=== PATIENT | male | born 1935 | race Caucasian/White ===

== ENCOUNTER 2016-11-10 17:57 | Inpatient (IN) ==
--- NOTE | 2016-11-10 18:17 | Emergency Department Note ---
Disposition Clinical Impression: RONNIE (acute kidney injury), Elevated troponin Cerebrovascular accident Qualifiers: CVA mechanism: unspecified Qualified Code(s): I63.9 - Cerebral infarction, unspecified Disposition: Admitted As Inpatient Condition: Serious Referrals: NO,PCP [Primary Care Provider] - Forms: ED Satisfaction Letter Time of Disposition: 19:54 Neuro HPI - General Chief Complaint: ED Neuro Symptoms/Deficit Stated Complaint: R sided weakness Time Seen by Provider: 11/10/16 18:07 Source: patient, EMS Limitations: no limitations Nursing Notes Reviewed: Yes Vital Signs Reviewed: Yes - History of Present Illness HPI Narrative: 81-year-old male presents to the emergency department with approximate 36 hour history of right-sided weakness. Patient's currently in the intermediate for unknown reasons (per patient). Patient states he began having right-sided weakness 2 days ago and was trying to notify her should home staff. Patient states today they attempted to get him out of bed and into a chair and noticed that he was essentially flaccid on his right side. Patient was then sent to the emergency department for evaluation of possible CVA. On arrival the patient is awake and alert. He is noted to have some right-sided facial droop as well as marked weakness to the right upper extremity. Patient is unable to raise extremity off the bed. 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 The left side is unsafe and he is able to move both the upper and lower extremity without difficulty. The right lower extremity is also flaccid and weak and he is unable to maintain the upper extremity against gravity. Patient states that he is having some difficulty swallowing but family states that he is not having problems talking. He denies any headache, nausea or vomiting. He denies any chest pain. Exam is otherwise unremarkable. CT and lab work ordered. Patient is well outside the timeframe for TPA or interventional therapies. Onset of Symptoms Date: 11/08/16 Symptom Onset Unknown: Yes Location: right face, right arm, right leg History of same: No Severity: severe Quality: weakness Symptoms Improving: No Improves with: none Worsens with: none On Anticoagulants: No Associated symptoms: Reports: denies other symptoms Treatments Prior to Arrival: none - Related Data Home Medications: Home Medications Medication Instructions Recorded Confirmed Carbidopa/Levodopa / [Sinemet 0.5 tab PO TID 07/12/15 11/10/16 25/100] Citalopram [CeleXA] 20 mg PO QAM 07/12/15 11/10/16 Trazodone HCl [TraZODone] 100 mg PO HS 07/12/15 11/10/16 Omeprazole [PriLOSEC] 20 mg PO QAM 10/19/15 11/10/16 Fluticasone Propionate Nasal 50 mcg NS DAILY 06/23/16 11/10/16 [Flonase] Metoprolol [Lopressor] 25 mg PO DAILY 06/23/16 11/10/16 Multivitamin [Multi-Day Vitamins] 1 tab PO DAILY 06/23/16 11/10/16 Acetaminophen w/Cod 300-30 mg 1 tab PO QID PRN 11/10/16 11/10/16 [Tylenol w/Codeine #3] Alprazolam [Xanax 0.25 MG Tablet] 0.25 mg PO BID PRN 11/10/16 11/10/16 Alprazolam [Xanax 0.5 MG Tablet] 0.5 mg PO BID PRN 11/10/16 11/10/16 Phenyleph/Pramoxin/Glycr/W.pet 1 appl RC Q4H PRN 11/10/16 11/10/16 [Preparation H Cream] Potassium Chloride 20 meq PO BID 11/10/16 11/10/16 Tamsulosin [Flomax] 0.8 mg PO HS 11/10/16 11/10/16 Previous Rx's Medication Instructions Recorded Isosorbide MONOnitrate (24 HR) 60 mg PO DAILY #30 tab.er.24h 01/28/16 [Imdur] Docusate [Colace] 100 mg PO BID #30 capsule 10/24/16 Aspirin Enteric Coated [Aspirin EC] 81 mg PO DAILY tablet. 10/30/16 Allergies/Adverse Reactions: Allergies Allergy/AdvReac Type Severity Reaction Status Date / Time acetaminophen [From Percocet] AdvReac Confusion Verified 10/19/16 16:45 codeine AdvReac Confusion Verified 10/19/16 16:45 morphine AdvReac Confusion Verified 10/19/16 16:45 Oxycodone [From Percocet] AdvReac Confusion Verified 10/19/16 16:45 All systems ED: reviewed and negative except as stated. Constitutional: Reports: weakness. Denies: fever Cardiovascular: Denies: chest pain Gastrointestinal: Denies: abdominal pain, nausea, vomiting Neurological: Reports: weakness, numbness Past Medical History - Past Medical History Medical history: Reports: coronary artery disease, CVA, dementia, diabetes, hypertension, myocardial infarction, other Surgical history: Reports: orthopedic, other Psychiatric history: Reports: anxiety, depression - Social History Smoking Status: Former smoker Smokeless Tobacco Status: Yes (Chews) Alcohol use: Reports: none Drug use: Reports: none Physical Exam - General Limitations: no limitations General appearance: alert, in no apparent distress - Head Head exam: atraumatic, normocephalic, normal inspection - Eye Eye exam: Present: EOMI - ENT ENT exam: normal exam, normal oropharynx, mucous membranes moist - Chest Chest inspection: Present: normal inspection, symmetric chest wall rise - Respiratory Respiratory exam: Present: normal lung sounds bilaterally - Cardiovascular Cardiovascular exam: Present: regular rate, normal rhythm, normal heart sounds - Abdominal Exam Abdominal exam: Present: soft, Non-Tender. Absent: tenderness, distention, guarding, rebound, rigidity - Neurological Exam Neurological exam: Present: alert, motor sensory deficit (Marketed motor deficit noted to the right upper extremity and right lower extremity. One out of 5 strength to the right upper extremity and 0 out of 5 strength to the right lower extremity. Minor sensory deficits noted to the face, right upper and right lower extremity.) - Skin Skin exam: Present: warm, dry, intact, normal color Course - Reevaluation(s) Reevaluation #1: Discussed case with Dr. Francis. He will see in consultation. IV fluids being administered. Patient remains in guarded condition. Time: 19:37 Reevaluation #2: Discussed case with Dr. Mark of neurology. He recommends admission to the hospital and further workup for CVA. Recommends aspirin only. Will see in consultation. Time: 19:54 Reevaluation #3: Discuss case with hospitalist. Patient except for further evaluation and treatment. Third liter of IV fluids infusing. Patient stable for admission. Time: 20:32 Vital Signs Temperature 97.9 F 11/10/16 17:58 Pulse Rate 87 11/10/16 17:58 Respiratory Rate 20 11/10/16 17:58 Blood Pressure 169/103 11/10/16 17:58 O2 Sat by Pulse Oximetry 93 L 11/10/16 17:58 Temperature 97.9 F 11/10/16 17:58 Pulse Rate 86 11/10/16 20:06 Respiratory Rate 20 11/10/16 20:06 Blood Pressure 160/90 11/10/16 20:06 O2 Sat by Pulse Oximetry 98 11/10/16 20:06 Oxygen Delivery Oxygen Delivery Nasal Cannula Neuro Symptoms/Deficit - MDM Narrative Medical decision making narrative: I examined this patient and my medical decision-making was reviewed with the MEDIA OPERATOR/PA/Advanced Practice Nurse/Resident Physician. I agree with the documented findings, disposition and treatment plan as described except to the extent set forth below. Patient was seen by myself and Dr. Guzman, I agree with his evaluation and management plan, supervise confusional state. Patient presents today with weakness which apparently has been on for more than 24 hours from nursing facility they thought he had weakness.. Today when they sat him in his chair he slumped over on the right side. Uncertain how long this has been going on at least more than 24 hours. She does not meet any stroke criteria for intervention. Were going to image him. Family states that he is a DNR CC arrest. Patient is awake has weakness on his right side. He also has Parkinson's disease We are going to do a workup on him and then he will most likely need admission. Family is in agreement with this plan. Chest X-Ray 11/10/16 18:07 IMPRESSION: No acute process D/ / Abbi Kemp MD / Abbi Kemp MD Interpreting Provider: Abbi Kemp MD Head CT 11/10/16 18:12 IMPRESSION: No acute intracranial abnormality. D/ / Yakov Aguirre MD / Yakov Aguirre MD Interpreting Provider: Yakov Aguirre MD 1900 hrs.: Patient's creatinine is elevated. Consistent with dehydration. Rehydrate him. Speak with neurology, also speak with nephrology. Admit. Family's agreement with this plan. - Medical Records Medical records reviewed: Yes I reviewed the patient's medical records. - Lab Data Lab results reviewed: Yes I reviewed the patient's lab results. Result diagrams: 11/10/16 18:26 11/10/16 18:26 Lab Results 11/10/16 11/10/16 11/10/16 Range/Units 18:26 18:26 18:26 WBC 6.9 (4.3-11.1) K/mcL RBC 4.46 (4.19-5.50) M/mcL Hgb 13.8 (12.9-16.9) g/dL Hct 41.7 (37.5-50.1) % MCV 93.5 (83.0-100.0) fL MCH 30.9 (28.0-33.3) pg MCHC 33.1 (31.6-35.5) g/dL RDW 13.2 (11.5-14.5) % Plt Count 189 (140-400) K/mcL MPV 10.0 (9.4-12.4) fL Immature Gran % 0.4 (0-4) % Seg Neutrophils % 75.1 % Lymphocytes % 13.3 % Monocytes % 8.8 % Eosinophils % 2.0 % Basophils % 0.4 % Neutrophils # 5.2 (1.6-8.9) K/mcL Lymphocytes # 0.9 (0.6-4.6) K/mcL Monocytes # 0.6 (0.0-1.3) K/mcL Eosinophils # 0.1 (0.0-0.6) K/mcL Basophils # 0.0 (0.0-0.2) K/mcL PT 14.1 H (9.4-12.1) Seconds INR 1.3 Sodium 138 (136-145) mEq/L Potassium 5.4 H (3.5-4.5) mEq/L Chloride 102 (98-109) mEq/L Carbon Dioxide 23 (19-29) mEq/L BUN 50 H (8-26) mg/dL Creatinine 5.03 H (0.72-1.25) mg/dL Est GFR ( Amer) 13 L (> 60) Est GFR (Non-Af Amer) 11 L (> 60) BUN/Creatinine Ratio 10 (6-26) Glucose 190 H (70-99) mg/dL Calculated Osmolality 304 H (280-300) Calcium 8.8 (8.6-10.8) mg/dL Total Bilirubin 0.7 (0.2-1.2) mg/dL AST 15 (5-34) Units/L ALT < 6 (0-55) Units/L Alkaline Phosphatase 77 (38-126) Units/L Troponin I (0-0.03) ng/mL Serum Total Protein 6.6 (6.0-8.3) g/dL Albumin 2.7 L (3.5-5.0) g/dL Globulin 3.9 H (2.4-3.5) g/dL Albumin/Globulin Ratio 0.7 L (1.1-2.2) 11/10/16 Range/Units 18:26 WBC (4.3-11.1) K/mcL RBC (4.19-5.50) M/mcL Hgb (12.9-16.9) g/dL Hct (37.5-50.1) % MCV (83.0-100.0) fL MCH (28.0-33.3) pg MCHC (31.6-35.5) g/dL RDW (11.5-14.5) % Plt Count (140-400) K/mcL MPV (9.4-12.4) fL Immature Gran % (0-4) % Seg Neutrophils % % Lymphocytes % % Monocytes % % Eosinophils % % Basophils % % Neutrophils # (1.6-8.9) K/mcL Lymphocytes # (0.6-4.6) K/mcL Monocytes # (0.0-1.3) K/mcL Eosinophils # (0.0-0.6) K/mcL Basophils # (0.0-0.2) K/mcL PT (9.4-12.1) Seconds INR Sodium (136-145) mEq/L Potassium (3.5-4.5) mEq/L Chloride (98-109) mEq/L Carbon Dioxide (19-29) mEq/L BUN (8-26) mg/dL Creatinine (0.72-1.25) mg/dL Est GFR ( Amer) (> 60) Est GFR (Non-Af Amer) (> 60) BUN/Creatinine Ratio (6-26) Glucose (70-99) mg/dL Calculated Osmolality (280-300) Calcium (8.6-10.8) mg/dL Total Bilirubin (0.2-1.2) mg/dL AST (5-34) Units/L ALT (0-55) Units/L Alkaline Phosphatase (38-126) Units/L Troponin I 0.59 H* (0-0.03) ng/mL Serum Total Protein (6.0-8.3) g/dL Albumin (3.5-5.0) g/dL Globulin (2.4-3.5) g/dL Albumin/Globulin Ratio (1.1-2.2) - Radiology Data Radiology results reviewed: Yes I reviewed the patient's radiology results. - EKG Data EKG attestation: Yes I reviewed and interpreted this EKG. EKG shows normal: sinus rhythm Rate: normal Rhythm: NSR Vance/QRS: normal Interpretation: no acute changes NIH Stroke Scale - Level of Consciousness LOC: Alert - LOC Questions LOC Questions: Answers both correctly - LOC Commands LOC Commands: Performs both correctly - Best Gaze Best Gaze: Normal - Visual Visual: No visual loss - Facial Palsy Facial Palsy: Minor asymmetry on smiling, flattened nasolabial fold - Motor Arms Motor Arm-Left: No drift for 10 seconds Motor Arm-Right: No effort against gravity, limb falls to bed, some movement - Motor Legs Motor Leg-Left: No drift for 5 seconds Motor Leg-Right: No movement - Limb Ataxia Limb Ataxia: Absent of affected limb too weak to perform exam - Sensory Sensory: Mild to moderate loss, "not as sharp" - Best Language Best Language: No aphasia - Dysarthria Dysarthria: Normal - Extinction and Inattention Extinction and Inattention: Normal - NIHSS Total Score NIHSS Total Score: 9 TPA Checklist - LKW: 3-4.5 hrs Add. Contraindications Patient/family understanding: The patient/family members have been counseled and understood the risk, benefit , and alternatives of treatment.
[2016-11-10 18:37] LABS: Basophils % 0.4 %; Eosinophils # 0.1 K/mcL (0.0-0.6); Hematocrit 41.7 % (37.5-50.1); Hemoglobin 13.8 g/dL (12.9-16.9); Immature Granulocytes % 0.4 % (0-4); Lymphocytes # 0.9 K/mcL (0.6-4.6); Lymphocytes % 13.3 %; Mean Corpuscular HGB Conc 33.1 g/dL (31.6-35.5); Mean Corpuscular Hemoglobin 30.9 pg (28.0-33.3); Mean Corpuscular Volume 93.5 fL (83.0-100.0); Monocytes # 0.6 K/mcL (0.0-1.3); Monocytes % 8.8 %; Neutrophils # 5.2 K/mcL (1.6-8.9); Platelet Count 189 K/mcL (140-400); Red Blood Count 4.46 M/mcL (4.19-5.50); Red Cell Distribution Width 13.2 % (11.5-14.5); Segmented Neutrophils % 75.1 %
[2016-11-10 18:43] LABS: INR 1.3; Prothrombin Time 14.1 Seconds (9.4-12.1)
[2016-11-10 18:51] LABS: Albumin 2.7 g/dL (3.5-5.0); Albumin/Globulin Ratio 0.7 (1.1-2.2); Alkaline Phosphatase 77 Units/L (38-126); Aspartate Amino Transferase 15 Units/L (5-34); BUN/Creatinine Ratio 10 (6-26); Bilirubin,Total 0.7 mg/dL (0.2-1.2); Blood Urea Nitrogen 50 mg/dL (8-26); Calcium 8.8 mg/dL (8.6-10.8); Carbon Dioxide 23 mEq/L (19-29); Chloride 102 mEq/L (98-109); Globulin 3.9 g/dL (2.4-3.5); Glucose 190 mg/dL (70-99); Osmolality,Calculated 304 (280-300); Potassium 5.4 mEq/L (3.5-4.5); Sodium 138 mEq/L (136-145); Total Protein 6.6 g/dL (6.0-8.3); eGFR For African Americans 13 (> 60); eGFR For Non-African Americans 11 (> 60)
[2016-11-10 18:52] LABS: Alanine Aminotransferase < 6 Units/L (0-55)
[2016-11-10] MEDS ORDERED: 0.9 % Sodium Chloride 1,000 ML IV ONE ×2 (18:57→19:44)
[2016-11-10] MEDS ORDERED: Aspirin 325 MG TABLET PO ONE (19:43)
[2016-11-10 23:35] LABS: Bilirubin,Urine Negative (Negative); Blood,Urine Negative (Negative); Clarity,Urine Clear (Clear); Color,Urine Yellow (Yellow); Glucose,Urine (UA) Normal (Normal); Ketones,Urine Negative (Negative); Leukocyte Esterase,Urine Negative (Negative); Nitrite,Urine Negative (Negative); PH,Urine 6.5 pH Units (5.0-8.0); Protein,Urine Negative (Neg-Trace); Urobilinogen,Urine Normal (Normal)
[2016-11-10] MEDS ORDERED: Naloxone 0.4 MG/ML INJ IVP PRN (23:44)
--- NOTE | 2016-11-11 00:08 | Internal Med History&Physical ---
Date of Encounter: 11/10/16 Time of Encounter: 23:15 Assessment and Plan (1) Cerebrovascular accident Current visit: Yes Status: Acute Patient has right-sided weakness, which outside the window for thrombolysis. Will keep him NPO, as he failed swallow eval in the ER. Aspirin 300 mg [place]. Permissive hypertension. Thrombotic versus embolic (pt has h/o A fib but now in sinus rhythm). MRI of the brain, MRA of the carotids and intracranial arteries, echo. Neurology consult. PT/OT/speech therapy/social service consult Qualifiers: CVA mechanism: unspecified Qualified Code(s): I63.9 - Cerebral infarction, unspecified (2) Acute renal failure (ARF) Current visit: Yes Status: Acute Suspect this is possibly postrenal/secondary to urinary retention versus pre- renal. Patient had over 1300 ml of urine on catheterization - continue sylvester. Pt is on IV fluids. Continue IV fluids and monitor renal function. Renal Ultrasound. Nephrology consult (ER physician discussed with Dr Francis) Qualifiers: Acute renal failure type: unspecified Qualified Code(s): N17.9 - Acute kidney failure, unspecified (3) Elevated troponin Current visit: Yes Status: Acute Possibly related to Acute CVA versus acute renal failure. Unlikely cardiac in origin. Echo. trend troponins. Consider Cardiology consult. (4) HTN (hypertension) Current visit: No Status: Acute Permissive hypertention. Monitor BP - no intervention, unless BP is more than 220/110 Qualifiers: Hypertension type: essential hypertension Qualified Code(s): I10 - Essential (primary) hypertension (5) Dementia Current visit: No Status: Chronic supportive care. Continue home meds Qualifiers: Dementia type: unspecified type Dementia behavioral disturbance: without behavioral disturbance Qualified Code(s): F03.90 - Unspecified dementia without behavioral disturbance (6) Urinary retention Current visit: Yes Status: Acute Pt has sylvester catheter in place. Pt is on flomax - suspect BPH. Consider urology consult. Renal ultraound. (7) Atrial fibrillation Current visit: No Status: Chronic Pt is now in sinus rhythm. consider watermelon inspector anticoagulation, as the pt has CVA Qualifiers: Atrial fibrillation type: chronic Qualified Code(s): I48.2 - Chronic atrial fibrillation (8) Parkinson disease Current visit: No Status: Chronic Continue home meds. Neurology consultation (9) Type 2 diabetes mellitus Current visit: No Status: Chronic Pt is NPO now. start sliding scale insulin Q6H. Qualifiers: Diabetes mellitus complication status: without complication Diabetes mellitus watermelon inspector insulin use: without watermelon inspector use Qualified Code(s): E11.9 - Type 2 diabetes mellitus without complications (10) Cecum mass Current visit: No Status: Suspected Had suspicion for cecal mass. May need outpatient work-up (11) Hyperkalemia Current visit: Yes Status: Acute Possibly due to Acute renal failure and potassium supplements. D/C potassium chloride. IV fluids to correct renal failure. Monitor Potassium level. (12) DVT prophylaxis Current visit: Yes Status: Acute Subcutaneous Heparin (13) Code status needs review Current visit: Yes Status: Chronic Pt had DNR CC-Arrest status. RN discussed with , who confirmed DNR -CC- Arrest/DNI Internal Medicine - H&P: HPI Chief complaint: Right-sided weakness Admitted From: Emergency Dept Plans for Post Hospital Care: Transfer [facility] Facility History of present illness: Mr. Vizcarra is a 81 year old male with h/o- dementia, Parkinson disease. He was admitted earlier this month with the history of acute cholecystitis, choledocholithiasis, gallstone pancreatitis and had cholecystectomy done. He was discharged to SNF on 10/30/16. He is not able to give clinical details due to dementia. No family members at the bedside. I have obtained the history by reviewing ER notes, signouts and RN. Per the ER note, pt apparently had right-sided weakness for over 36 hours. He apparently was flaccid on the right side, and the staff at group home tried to move him from bed to chair. He was evaluated in the ER Right sided weakness was noted. CT head was negative. Aspirin was given. He physician discussed with the neurologist Dr Christianson, who will evaluate the pt. Pt was also noted to have RONNIE ER provider discussed with [employer] Salesperson Dr Francis, who will evaluate the pt. He is admitted to the hospitalist service for further w/u and management. Per RN, pt failed swallow eval in the ER. Past Med Surg Social Fam HX - Past Medical History Medical history: coronary artery disease, CVA, dementia, diabetes, hypertension , myocardial infarction, other Psychiatric history: anxiety, depression - Past Surgical History Surgical History: orthopedic, other - Social History Smoking Status: Former smoker Smokeless Tobacco Status: Yes (Chews) Alcohol use: none Drug use: none - Family History Father Adopted: No Living Status: Hx Family Cardiac Disorders: Yes Hx Family Neurologic Disorders: Yes (strokes) Mother Adopted: [place]: Re[place] Family Member Ethnicity: Non- Living Status: Hx Family Cardiac Disorders: Yes Internal Medicine - H&P: Meds Carbidopa/Levodopa 25/100 [Sinemet 25/100] 0.5 tab PO TID 07/12/15 [History] Citalopram [CeleXA] 20 mg PO QAM 07/12/15 [History] Trazodone HCl [TraZODone] 100 mg PO HS 07/12/15 [History] Omeprazole [PriLOSEC] 20 mg PO QAM 10/19/15 [History] Isosorbide MONOnitrate (24 HR) [Imdur] 60 mg PO DAILY #30 tab.er.24h 01/28/16 [ Rx] Fluticasone Propionate Nasal [Flonase] 50 mcg NS DAILY 06/23/16 [History] Metoprolol [Lopressor] 25 mg PO DAILY 06/23/16 [History] Multivitamin [Multi-Day Vitamins] 1 tab PO DAILY 06/23/16 [History] Docusate [Colace] 100 mg PO BID #30 capsule 10/24/16 [Rx] Aspirin Enteric Coated [Aspirin EC] 81 mg PO DAILY tablet. 10/30/16 [Rx] Acetaminophen w/Cod 300-30 mg [Tylenol w/Codeine #3] 1 tab PO QID PRN 11/10/16 [ History] Alprazolam [Xanax 0.25 MG Tablet] 0.25 mg PO BID PRN 11/10/16 [History] Alprazolam [Xanax 0.5 MG Tablet] 0.5 mg PO BID PRN 11/10/16 [History] Phenyleph/Pramoxin/Glycr/W.pet [Preparation H Cream] 1 appl RC Q4H PRN 11/10/16 [History] Potassium Chloride 20 meq PO BID 11/10/16 [History] Tamsulosin [Flomax] 0.8 mg PO HS 11/10/16 [History] Allergies acetaminophen [From Percocet] Adverse Reaction (Verified 10/19/16 16:45) Confusion codeine Adverse Reaction (Verified 10/19/16 16:45) Confusion morphine Adverse Reaction (Verified 10/19/16 16:45) Confusion Oxycodone [From Percocet] Adverse Reaction (Verified 10/19/16 16:45) Confusion All Systems PM: A 10-system review of systems could not be completed due to pt's dementia. Pt reports some burning at the penis, after he had sylvester catheter placed. - Constitutional Vitals: Temp Pulse Resp BP Pulse Ox 97.7 F 75 16 176/94 98 11/10/16 21:20 11/10/16 22:00 11/10/16 21:20 11/10/16 22:00 11/10/16 21:20 Exam: General: Not in acute distress at the time of my evaluation HEENT: No conjunctival palor or scleral incterus. Pt is not able to follow instructions for a thorough cranial nerve evaluation. Neck: No obvious swellings Lungs: Clear to auscultation Cardiac: Regular rate and rhythm. No significant murmurs. Left sided carotid bruit present Abdomen: Soft, non tender. Bowel sounds present Genitourinary: Sylvester catheter in place Neurological: Alert. Right upper extremity weakness - flaccid. power: 0/5. RLE: able to bend at the knee, but is not able to lift the RLE, off the bed. Plantars : up going. Left Upper and lower extremities: grossly normal power. left plantars: upgoing. Pt is not able to follow instructions for a thorough cranial nerve evaluation. Psychiatric: Not aggressive or agitated. Muskuloskeletal: No edema noted. Skin: No generalized rash Internal Med - H&P Results - Labs CBC & Chem 7: 11/11/16 03:44 11/11/16 03:44 Labs: Urine 11/10/16 Range/Units 23:20 Urine Color Yellow (Yellow) Urine Clarity Clear (Clear) Urine pH 6.5 (5.0-8.0) pH Units Ur Specific [place] 1.010 (1.010-1.025) Urine Protein Negative (Neg-Trace) mg/dL Urine Glucose (UA) Normal (Normal) mg/dL - EKG Data -: EKG Interpreted by Myself EKG shows normal: sinus rhythm Rate: normal - Impressions ITS Impressions Chest X-Ray 11/10/16 18:07 IMPRESSION: No acute process D/ / Abbi Kemp MD / Abbi Kemp MD Interpreting Provider: Abbi Kemp MD Head CT 11/10/16 18:12 IMPRESSION: No acute intracranial abnormality. D/ / Yakov Aguirre MD / Yakov Aguirre MD Interpreting Provider: Yakov Aguirre MD
[2016-11-11] MEDS ORDERED: ALPRAZolam 0.25 MG TABLET PO PRN (00:30)
[2016-11-11] MEDS ORDERED: Preparation H Ointment 30 GM TUBE RC PRN (00:30)
[2016-11-11] MEDS ORDERED: *HR* Dextrose 50 % in Water (Syg) 50 ML SYRINGE IVP PRN (00:38)
[2016-11-11] MEDS ORDERED: D5% in Water 1,000 ML IV PRN (00:38)
[2016-11-11] MEDS ORDERED: Dextrose Gel 15 GM PO PRN ×2 (00:38)
[2016-11-11] MEDS: 0.9 % Sodium Chloride 1,000 ML IVC SCH ×3 (02:37→23:43)
[2016-11-11 05:07] LABS: Basophils % 0.6 %; Eosinophils # 0.2 K/mcL (0.0-0.6); Eosinophils % 2.7 %; Hematocrit 35.1 % (37.5-50.1); Immature Granulocytes % 0.4 % (0-4); Lymphocytes # 1.1 K/mcL (0.6-4.6); Lymphocytes % 14.8 %; Mean Corpuscular Volume 93.9 fL (83.0-100.0); Mean Platelet Volume 10.1 fL (9.4-12.4); Monocytes # 0.8 K/mcL (0.0-1.3); Monocytes % 10.7 %; Platelet Count 177 K/mcL (140-400); Red Blood Count 3.74 M/mcL (4.19-5.50); Red Cell Distribution Width 13.2 % (11.5-14.5); Segmented Neutrophils % 70.8 %
[2016-11-11 05:21] LABS: Calcium 8.3 mg/dL (8.6-10.8); Chol/HDL Ratio 4.8 (0-4.9); Magnesium 1.3 mg/dL (1.6-2.6); Potassium 4.8 mEq/L (3.5-4.5)
[2016-11-11 05:39] LABS: Hemoglobin 11.6 g/dL (12.9-16.9)
[2016-11-11] MEDS: *HR* Heparin 5,000 UNIT/ML VIAL SQ SCH ×3 (06:12→23:39)
[2016-11-11] MEDS: Insulin LISPRO 300 UNITS/3 ML VIAL SQ SCH ×3 (06:25→18:02)
--- NOTE | 2016-11-11 08:31 | Nephrology Consult Note ---
Date of Encounter: 11/11/16 Time of Encounter: 08:29 Assessment and Plan (1) RONNIE (acute kidney injury) Current Visit: Yes Status: Acute Patient has acute kidney injury in the setting of a recent CVA. He is improving with IV fluids raising the possibility that his acute kidney injuries related to volume depletion. Baseline serum creatinine is normal at 0.67. IV fluids should be continued. We will check a renal ultrasound to make sure there is no underlying postrenal obstructive issues. We will monitor his renal function on a daily basis. Nephrotoxins should be avoided. (2) Atrial fibrillation Current Visit: No Status: Chronic Qualifiers: Atrial fibrillation type: chronic Qualified Code(s): I48.2 - Chronic atrial fibrillation (3) CVA (cerebral vascular accident) Current Visit: No Status: Chronic Qualifiers: CVA mechanism: unspecified Qualified Code(s): I63.9 - Cerebral infarction, unspecified History of Present Illness - History of Present Illness This is an 81-year-old male presents to emergency room from the longterm with right sided weakness. Patient has been diagnosed with an acute CVA. History is obtained from the medical record. On presentation patient's creatinine was 5.03. He was thought to be volume depleted. He was placed on IV fluids. Today's creatinine is down to 3.10. His baseline creatinine is 0.67. A Lopez catheter is in place. Patient's undergone treatment for his acute CVA. He continues to have weakness of the right upper extremity. He is nothing by mouth because of swallowing issues. Past Med Surg Social Fam HX - Past Medical History Medical history: coronary artery disease, CVA, dementia, diabetes, hypertension , myocardial infarction, other Psychiatric history: anxiety, depression - Past Surgical History Surgical History: orthopedic, other - Social History Smoking Status: Former smoker Smokeless Tobacco Status: Yes (Chews) Alcohol use: none Drug use: none - Family History Father Adopted: No Living Status: Hx Family Cardiac Disorders: Yes Hx Family Neurologic Disorders: Yes (strokes) Mother Adopted: [place]: Rea Family Member Ethnicity: Non- Living Status: Hx Family Cardiac Disorders: Yes Medications and Allergies Carbidopa/Levodopa 25/100 [Sinemet 25/100] 0.5 tab PO TID 07/12/15 [History] Citalopram [CeleXA] 20 mg PO QAM 07/12/15 [History] Trazodone HCl [TraZODone] 100 mg PO HS 07/12/15 [History] Omeprazole [PriLOSEC] 20 mg PO QAM 10/19/15 [History] Isosorbide MONOnitrate (24 HR) [Imdur] 60 mg PO DAILY #30 tab.er.24h 01/28/16 [ Rx] Fluticasone Propionate Nasal [Flonase] 50 mcg NS DAILY 06/23/16 [History] Metoprolol [Lopressor] 25 mg PO DAILY 06/23/16 [History] Multivitamin [Multi-Day Vitamins] 1 tab PO DAILY 06/23/16 [History] Docusate [Colace] 100 mg PO BID #30 capsule 10/24/16 [Rx] Aspirin Enteric Coated [Aspirin EC] 81 mg PO DAILY tablet. 10/30/16 [Rx] Acetaminophen w/Cod 300-30 mg [Tylenol w/Codeine #3] 1 tab PO QID PRN 11/10/16 [ History] Alprazolam [Xanax 0.25 MG Tablet] 0.25 mg PO BID PRN 11/10/16 [History] Alprazolam [Xanax 0.5 MG Tablet] 0.5 mg PO BID PRN 11/10/16 [History] Phenyleph/Pramoxin/Glycr/W.pet [Preparation H Cream] 1 appl RC Q4H PRN 11/10/16 [History] Potassium Chloride 20 meq PO BID 11/10/16 [History] Tamsulosin [Flomax] 0.8 mg PO HS 11/10/16 [History] Allergies acetaminophen [From Percocet] Adverse Reaction (Verified 10/19/16 16:45) Confusion codeine Adverse Reaction (Verified 10/19/16 16:45) Confusion morphine Adverse Reaction (Verified 10/19/16 16:45) Confusion Oxycodone [From Percocet] Adverse Reaction (Verified 10/19/16 16:45) Confusion Review of Systems ROS unobtainable: due to mental status Exam - Vital Signs Vital signs: Initial Vital Signs Temp Pulse Resp BP Pulse Ox 97.9 F 87 20 169/103 93 L 11/10/16 17:58 11/10/16 17:58 11/10/16 17:58 11/10/16 17:58 11/10/16 17:58 Vital Signs - Last 8 Hours Temp Pulse Resp BP Pulse Ox 11/11/16 07:00 98.1 F 79 15 168/103 93 L 11/11/16 06:00 73 14 168/103 11/11/16 04:00 98.0 F 77 16 165/94 94 L 11/11/16 02:00 75 14 180/90 Intake and Output 11/10/16 11/11/16 11/11/16 23:59 07:59 15:59 Intake Total 0 / 0 Output Total 1600 / 1600 Balance -1600 / -1600 Intake: Oral 0 / 0 Output: Catheter 1600 / 1600 Other: Blood Glucose* 100 - General Appearance Exam: Patient appears chronically ill. He is in no acute distress. Lungs breath sounds otherwise clear. Heart irregular rate and rhythm consistent with atrial fibrillation. Abdomen shows normal bowel sounds abrasion as to chemically or tenderness. There is no lower actually swelling. Patient has decreased movement in the right upper extremity. 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 He is able to move toes on both feet. Results - Lab Results 11/11/16 03:44 11/11/16 03:44 Most recent lab results Calcium 8.3 mg/dL (8.6-10.8) L 11/11/16 03:44 Magnesium 1.3 mg/dL (1.6-2.6) L 11/11/16 03:44 Consult Discharge Plan - Plan Referrals: Saloni Isaac, TRANSLITERATOR [Primary Care Provider] -
--- NOTE | 2016-11-11 10:06 | Event Note ---
<Emiliano Khan - Last Filed: 11/11/16 14:51> Date of Encounter: 11/11/16 Time of Encounter: 10:05 Mr. Vizcarra has been seen and evaluated patient bedside this morning. He is laying in bed awake and alert but only answers some questions. He appears to be slightly depressed status post CVA. His only complaints this morning he has some abdominal tenderness more so in the right upper quadrant. He denies any chest pain, chest pressure, palpitations, change in vision or headache currently. He denies any questions or concerns. Vital signs: Temperature 90.1, heart rate 78, respirations 16, blood pressure 164/81, 98% at room air. Significant again Laboratory results: Potassium is decreased from 5.4-4.8, D.O. and has improved from 50-38, creatinine improved from 5.03-3.10, GFR improved from 11-19, magnesium is 1.3, troponin 0.66 from 0.59, triglyceride 150, HDL 29 Physical examination: Alerts, depressed in no acute distress. HEENT normocephalic atraumatic droop to right face. neck supple, trachea midline Chest: Symmetric bilateral quarreling with respiratory effort, respiratory effort nonlabored. Cardiac: Regular rate and rhythm no murmurs or gallops appreciated. Radial pulses and posterior tibial pulses 2+ bilaterally Respiratory: Clear to auscultation bilaterally. Abdomen: Soft, tender to palpation in the right upper quadrant. Examination demonstrates laparoscopic port sites healing appropriately without drainage or erythema or edema. Extremities: Right upper and right lower extremity are flaccid with 0 out of 5 muscle strength. Left upper extremity and left lower extremity tenuously moving without restriction. No signs of erythema or edema. Assessment and plan 1. CVA: Mr. Vizcarra presented with right-sided weakness and fell outside the window for thrombolysis. He recently failed swallow evaluation in emergency department but was seen by speech and was cleared for mechanical soft diet with thin liquids. Permissive hypertension recommended for 24 hours since admission. MRI of the brain demonstrates numerous foci of acute/early subacute infarcts in the supratentorial and infratentorial brain parenchymal bilaterally. Distribution of infarction raises the possibility of thromboembolic phenomenon from the central source. Diffuse parenchymal volume loss and sequelae of moderate to severe chronic microvascular ischemic changes. Echocardiogram performed 11/11/2016 demonstrates technically suboptimal study. Left ventricle ejection fraction was 50% with low normal LV systolic function. Mild concentric left ventricular hypertrophy and indeterminate diastolic function. There was a normal right ventricular size and function and no significant valvular dysfunction. Neurology was consulted and recommended blood cultures to evaluate for bacterial source. Plan: - Patient to remain nothing by mouth for possible BRYAN, appended on cardiology recommendations. - Continue with permissive hypertension for a total of 24 hours since admission. - Highly suspicious for cardiac thrombosis as a source, patient sinus rhythm currently. Will likely need anticoagulation. - artificial marble worker consult. - PT OT evaluation - Mechanically soft diet after completion of imaging tests. - Awaiting further recommendations from neurology. 2. Acute kidney injury: Creatinine was 5.03 at the time of admission and is currently 3.10. Likely secondary to urinary retention, as creatinine improves with IV rehydration and Lopez placements in the setting of BPH. Given that his acute kidney injury is also in the setting of CVA cannot rule out crystal embolization. Plan: - Continue IV rehydration - Nephrology was consult and has seen the patient. I recommend renal ultrasound to make sure there is no underlying post renal obstruction. - Continue monitoring renal function with daily labs. - Avoid nephrotoxic medications and renally dose antibiotics. 3. History of atrial fibrillation Mr. Vizcarra has a history of atrial fibrillation currently is in sinus rhythm will likely need long-term anticoagulation. 4. Type 2 diabetes: Glucose stable at this time. Continue inpatient sliding scale insulin. Continue before meals at bedtime glucose checks. Will order hemoglobin A1c in the setting of acute CVA. 5. Cecal mass: Review of abdominal CT demonstrates thickening of the cecal suspicious for cecal mass. May need outpatient workup. 6. Hyperkalemia: Improving since potassium chloride was held. 7. Hypomagnesemia: Magnesium 1.3 Plan: - PO magnesium replacement 8. Parkinson's dementia - Continue carbidopa levodopa <Shakeel Mohan - Last Filed: 11/11/16 18:22> Date of Encounter: 11/11/16 I examined this patient and my medical decision-making was reviewed with the Resident Physician on 11/11/16. I agree with the documented findings, disposition and treatment plan as described except to the extent set forth below. Mr. Vizcarra was admitted earlier this morning with acute CVA. His MRI shows multiple small bilateral strokes in both anterior and posterior circulation. Discussed with neurology - he has hx of a fib but not on anticoagulation (falls) . Will start Xarelto and get BRYAN. Further plan as above.
[2016-11-11] MEDS: Isosorbide MONOnitrate (24 HR) 60 MG TAB.ER.24H PO SCH (13:20)
[2016-11-11] MEDS: Multivit/Ca/Min/Fe/FA 1 TAB TABLET PO SCH (13:20)
[2016-11-11] MEDS: Aspirin 81 MG TAB.CHEW PO SCH (13:20)
[2016-11-11] MEDS: Carbidopa/Levodopa 25/100 TABLET PO SCH ×3 (13:22→20:29)
[2016-11-11] MEDS: Fluticasone Propionate Nasal 50 MCG/SPRAY BOTTLE NS SCH (13:23)
--- NOTE | 2016-11-11 14:07 | ECHO - Doppler Report ---
Echo with Saline Contrast Name: Bello Vizcarra Date of Study: 11/11/2016 Date: 1935 Ht: 72.0 in Medical Record#: [id number] Age: 81 Wt: 152.0 lb Gender: Male BSA: 1.9 Order #: [id number] Location: [facility] Room #: [id number] Reading Physician: Zack Dias MD, [facility] Ad Setter: Shelby Woods Ordering Physician: Cat Nelson MD Primary Physician: Saloni Isaac CNP Indications: Suspected CVA with right sided weakness Impressions: Technically suboptimal study with limited echo windows. Parasternal short axis views were not able to be obtained. LV function was not well assessed on this study. LV appears normal in size with low-normal LV systolic function, estimated LVEF 50%. Several myocardial segments were not well visualized. Mild concentric left ventricular hypertrophy. Indeterminate diastolic function. Normal right ventricular size and function. Agitated saline contrast study was attempted, but was of inadequate quality to assess for intracardiac shunting. No significant valvular dysfunction. Unable to estimate RVSP due to lack of TR jet. Findings: Study Quality * Technically suboptimal study with limited echo windows. Parasternal short axis views were not able to be obtained. ECG Findings * Sinus rhythm with occasional PVCs. Left Ventricle * LV function was not well assessed on this study. LV appears normal in size with low-normal LV systolic function, estimated LVEF 50%. Several myocardial segments were not well visualized. * Mild concentric left ventricular hypertrophy. * Indeterminate diastolic function. Right Ventricle * Normal right ventricular size and function. Left Atrium * Normal left atrial size. Right Atrium * Normal right atrial size. Interatrial Septum * Agitated saline contrast study was attempted, but was of inadequate quality to assess for intracardiac shunting. Aorta * Normally sized aortic root. Pericardium * There is no pericardial effusion present. IVC * The IVC was not visualized. Aortic Valve * Aortic valve not well visualized. * No aortic stenosis. * Trace aortic regurgitation. Mitral Valve * Mild mitral annular calcification * No mitral stenosis. * Trace mitral regurgitation. Tricuspid Valve * Tricuspid valve not well visualized. * No tricuspid stenosis. * Trace tricuspid regurgitation. * Unable to estimate RVSP due to lack of TR jet. Pulmonic Valve * Pulmonic valve not well visualized. History Hypertension Diabetes Family History of CAD History of CAD/PTCA Myocardial Infarction 10/13/2014 a Previous Echo was performed. Contrast: Agitated saline 30 ml. Measurements: BP: 168/ 103 2D Normal Values RVIDd: 2.90 cm IVSd: 1.30 cm 0.6 - 1.0 cm LVIDd: 4.60 cm 3.7 - 5.6 cm LVPWd: 1.20 cm 0.6 - 1.1 cm LVIDs: 3.20 cm 1.5 - 3.6 cm AO: 3.80 cm < 4.0 cm %FS: 30.40 cm >25 % LVOT Diam: 2.00 cm LA volume: 39 Updated by Zack Dias MD, [facility] on 11/11/2016 2:00:45 PM electronically signed on 11/11/2016 2:02:13 PM with status of Final
--- NOTE | 2016-11-11 18:18 | Neurology - Consult Note ---
Date of Encounter: 11/11/16 Time of Encounter: 08:40 Assessment and Plan (1) Cerebrovascular accident Current Visit: Yes Status: Acute This patient who apparently had history of dementia as well as questionable parkinsonism was in the correction and now seem to have multiple acute and subacute infarct in anterior and posterior circulation. With his history of atrial fibrillation received to be chronic as documented is likely an embolic phenomenon at the same time that some of the infarcts are in watershed distribution I suspect he may have suffered some episodes of hypotension during these events. With multiple infarcts as well as history of chronic atrial fibrillation I think patient needs to be anticoagulated he already had an echo but it was suboptimal perhaps we could do a BRYAN at the same time need to do the carotid duplex as well to look at the extent of the stenosis if he had any. Little in his age group is always a risk of hemorrhagic conversion from the anticoagulation but concerning that he already had a multiple infarct on his imaging with deficit I think it would be reasonable to anticoagulate him at the moment I do not think that he is ambulating as much and perhaps with this new stroke is probably going to be normal ambulated for quite some time and if he does need to be assisted. We may get cardiology input regarding treatment options He will require long-term rehabilitation Continue to monitor his blood pressure and blood sugar continue him on his statin as well as his other home medications Plan discussed with the primary team Qualifiers: CVA mechanism: unspecified Qualified Code(s): I63.9 - Cerebral infarction, unspecified (2) Altered mental status Current Visit: No Status: Acute Qualifiers: Altered mental status type: transient alteration of awareness Qualified Code(s): R40.4 - Transient alteration of awareness (3) Dementia Current Visit: No Status: Chronic Qualifiers: Dementia type: unspecified type Dementia behavioral disturbance: without behavioral disturbance Qualified Code(s): F03.90 - Unspecified dementia without behavioral disturbance (4) Generalized weakness Current Visit: No Status: Chronic History of Present Illness HPI: Mr. Vizcarra is a 81 year old male brought into the emergency department because of right-sided weakness for at least 2-3 days. patient's currently in the correction, apparently he had a cholecystectomy earlier and presumably was in the correction after the surgery , As per history patient was trying to get out of the bed noticed that he was essentially flaccid on his right side. Patient was then sent to the emergency department for evaluation of possible CVA. He denies any headache, nausea or vomiting. He denies any chest pain, he got admitted for further workup and treatment he was outside for any TPA due to long duration of the symptoms Past Med Surg Social Fam HX - Past Medical History Medical history: coronary artery disease, CVA, dementia, diabetes, hypertension , myocardial infarction, other Psychiatric history: anxiety, depression - Past Surgical History Surgical History: orthopedic, other - Social History Smoking Status: Former smoker Smokeless Tobacco Status: Yes (Chews) Alcohol use: none Drug use: none - Family History Father Adopted: No Living Status: Hx Family Cardiac Disorders: Yes Hx Family Neurologic Disorders: Yes (strokes) Mother Adopted: [place]: Rea Family Member Ethnicity: Non- Living Status: Hx Family Cardiac Disorders: Yes Medications and Allergies Carbidopa/Levodopa 25/100 [Sinemet 25/100] 0.5 tab PO TID 07/12/15 [History] Citalopram [CeleXA] 20 mg PO QAM 07/12/15 [History] Trazodone HCl [TraZODone] 100 mg PO HS 07/12/15 [History] Omeprazole [PriLOSEC] 20 mg PO QAM 10/19/15 [History] Isosorbide MONOnitrate (24 HR) [Imdur] 60 mg PO DAILY #30 tab.er.24h 01/28/16 [ Rx] Fluticasone Propionate Nasal [Flonase] 50 mcg NS DAILY 06/23/16 [History] Metoprolol [Lopressor] 25 mg PO DAILY 06/23/16 [History] Multivitamin [Multi-Day Vitamins] 1 tab PO DAILY 06/23/16 [History] Docusate [Colace] 100 mg PO BID #30 capsule 10/24/16 [Rx] Aspirin Enteric Coated [Aspirin EC] 81 mg PO DAILY tablet. 10/30/16 [Rx] Acetaminophen w/Cod 300-30 mg [Tylenol w/Codeine #3] 1 tab PO QID PRN 11/10/16 [ History] Alprazolam [Xanax 0.25 MG Tablet] 0.25 mg PO BID PRN 11/10/16 [History] Alprazolam [Xanax 0.5 MG Tablet] 0.5 mg PO BID PRN 11/10/16 [History] Phenyleph/Pramoxin/Glycr/W.pet [Preparation H Cream] 1 appl RC Q4H PRN 11/10/16 [History] Potassium Chloride 20 meq PO BID 11/10/16 [History] Tamsulosin [Flomax] 0.8 mg PO HS 11/10/16 [History] Allergies acetaminophen [From Percocet] Adverse Reaction (Verified 10/19/16 16:45) Confusion codeine Adverse Reaction (Verified 10/19/16 16:45) Confusion morphine Adverse Reaction (Verified 10/19/16 16:45) Confusion Oxycodone [From Percocet] Adverse Reaction (Verified 10/19/16 16:45) Confusion All Systems: A 10-system review of systems was performed and is negative for pertinent findings except as documented above in the HPI. Review of Systems: A 10-system review of systems was performed and is negative for pertinent findings except as documented above in the HPI. Physical Examination - Vital Signs Vital Signs: Initial Vital Signs Temp Pulse Resp BP Pulse Ox 97.9 F 87 20 169/103 93 L 11/10/16 17:58 11/10/16 17:58 11/10/16 17:58 11/10/16 17:58 11/10/16 17:58 - Constitutional General appearance: comfortable - Neurologic Motor examination - right side: 1/5: deltoids, biceps, triceps, wrist flexion, wrist extension, candy vendor, 3/5: hip flexors, tibialis Anterior, quadriceps, toe extension (EHL), plantarflexion Motor examination - left side: 4/5: deltoids, biceps, triceps, wrist flexion, wrist extension, hip flexors, candy vendor, quadriceps, tibialis Anterior, toe extension (EHL), plantarflexion Detailed sensory examination: other (o difficult to assess as quite inconsistent but able to withdraw to the deep. All 4 extremities) Reflexes: Biceps: 1+, Triceps: 1+, Brachioradialis: 1+, Patella: 1+, Achilles: 1 + Mental Status Examination: awake, oriented to person, opens eyes to noxious stimulation, makes eye contact, follows simple commands, localizes noxious stimulation Cranial nerve examination: PERRL, EOMI, visual astorga intact Results - Laboratory Findings CBC and BMP: 11/11/16 03:44 11/11/16 03:44 Abnormal lab findings: Abnormal lab results RBC 3.74 M/mcL (4.19-5.50) L 11/11/16 03:44 Hgb 11.6 g/dL (12.9-16.9) L D 11/11/16 03:44 Hct 35.1 % (37.5-50.1) L 11/11/16 03:44 PT 14.1 Seconds (9.4-12.1) H 11/10/16 18:26 Potassium 4.8 mEq/L (3.5-4.5) H 11/11/16 03:44 BUN 38 mg/dL (8-26) H D 11/11/16 03:44 Creatinine 3.10 mg/dL (0.72-1.25) H 11/11/16 03:44 Est GFR ( Amer) 23 (> 60) L 11/11/16 03:44 Est GFR (Non-Af Amer) 19 (> 60) L 11/11/16 03:44 POC Glucose 145 (58-89) H 11/10/16 21:49 Calcium 8.3 mg/dL (8.6-10.8) L 11/11/16 03:44 Magnesium 1.3 mg/dL (1.6-2.6) L 11/11/16 03:44 Troponin I 0.66 ng/mL (0-0.03) H* 11/11/16 03:44 Albumin 2.7 g/dL (3.5-5.0) L 11/10/16 18:26 Globulin 3.9 g/dL (2.4-3.5) H 11/10/16 18:26 Albumin/Globulin Ratio 0.7 (1.1-2.2) L 11/10/16 18:26 Triglycerides 150 mg/dL (< 150) H 11/11/16 03:44 HDL Cholesterol 29 mg/dL (40-59) L 11/11/16 03:44 - Diagnostic Findings Additional findings: MRI shows multipleacute and subacute infarcts supra-and infratentorial areas Consult Discharge Plan - Plan Referrals: Saloni Isaac, BAR HOSTESS [Primary Care Provider] -
[2016-11-11] MEDS: traZODone 50 MG TABLET PO SCH (20:29)
[2016-11-12] MEDS: Insulin LISPRO 300 UNITS/3 ML VIAL SQ SCH ×4 (00:49→19:54)
[2016-11-12] MEDS: *HR* Heparin 5,000 UNIT/ML VIAL SQ SCH ×2 (05:24→15:58)
[2016-11-12 05:58] LABS: Basophils % 0.7 %; Eosinophils # 0.2 K/mcL (0.0-0.6); Hematocrit 32.4 % (37.5-50.1); Hemoglobin 10.7 g/dL (12.9-16.9); Immature Granulocytes % 0.3 % (0-4); Lymphocytes # 0.9 K/mcL (0.6-4.6); Lymphocytes % 15.3 %; Mean Corpuscular Hemoglobin 30.7 pg (28.0-33.3); Mean Corpuscular Volume 92.8 fL (83.0-100.0); Mean Platelet Volume 9.6 fL (9.4-12.4); Monocytes # 0.6 K/mcL (0.0-1.3); Monocytes % 10.1 %; Neutrophils # 4.3 K/mcL (1.6-8.9); Platelet Count 149 K/mcL (140-400); Red Blood Count 3.49 M/mcL (4.19-5.50); Red Cell Distribution Width 13.2 % (11.5-14.5); Segmented Neutrophils % 70.6 %
[2016-11-12 06:17] LABS: Alanine Aminotransferase 7 Units/L (0-55); Albumin 2.5 g/dL (3.5-5.0); Albumin/Globulin Ratio 0.7 (1.1-2.2); Alkaline Phosphatase 64 Units/L (38-126); Aspartate Amino Transferase 20 Units/L (5-34); BUN/Creatinine Ratio 20 (6-26); Calcium 8.2 mg/dL (8.6-10.8); Carbon Dioxide 20 mEq/L (19-29); Chloride 106 mEq/L (98-109); Globulin 3.5 g/dL (2.4-3.5); Glucose 76 mg/dL (70-99); Osmolality,Calculated 287 (280-300); Potassium 4.6 mEq/L (3.5-4.5); Sodium 138 mEq/L (136-145); eGFR For African Americans > 60 (> 60); eGFR For Non-African Americans > 60 (> 60)
[2016-11-12 06:22] LABS: Blood Urea Nitrogen 19 mg/dL (8-26)
--- NOTE | 2016-11-12 07:54 | Event Note ---
Date of Encounter: 11/12/16 Time of Encounter: 07:53 The patient's acute kidney injury has resolved. Creatinine is down to 0.97. Urine output is 2.9 L. Nephrology will sign off. Please call again if needed.
[2016-11-12] MEDS: 0.9 % Sodium Chloride 1,000 ML IVC SCH ×2 (09:36→20:04)
[2016-11-12] MEDS: Carbidopa/Levodopa 25/100 TABLET PO SCH ×4 (09:38→20:12)
[2016-11-12] MEDS: Aspirin 81 MG TAB.CHEW PO SCH (09:38)
[2016-11-12] MEDS: Isosorbide MONOnitrate (24 HR) 60 MG TAB.ER.24H PO SCH (09:38)
[2016-11-12] MEDS: Fluticasone Propionate Nasal 50 MCG/SPRAY BOTTLE NS SCH (09:39)
[2016-11-12] MEDS: Multivit/Ca/Min/Fe/FA 1 TAB TABLET PO SCH (09:39)
--- NOTE | 2016-11-12 10:36 | Carotid Imaging Report ---
Carotid Duplex Patient Name:Bello Vizcarra Order Number:[id number] Procedure Date:11/12/2016 Date:1935ge:81 yrs Gender:Male Location:[facility] Room #: 2NE31 Director Of Student Financial Services:Lc Ferrara RVT, RDCS Referring MD:Emiliano Khan DO predatory animal hunter:Saloni Isaac, MED SPEC Reading MD:Nav Loera MD , FACS Primary Indications:CVA Risk Factors Yes/No Hypertension Yes Diabetes Yes Smoker Previous Yes Impressions: Findings: Bilateral carotid systems have nonstenotic plaque. Recommendations: After imaging the patient returned to their room. Test completed on 11/12/2016 at 9:02:00 am. Critical findings reported to TIFFANY Bowles in person at 9:05:00 am on 11/12/2016 by Lc Ferrara RVT, RDCS. Findings Carotid Duplex: Right: There is nonstenotic plaque in the right proximal common carotid artery with a PSV of 107 cm/s and a EDV of 13 cm/s. There is smooth homogeneous plaque. There is nonstenotic plaque in the right mid common carotid artery with a PSV of 82 cm/s and a EDV of 15 cm/s. There is smooth homogeneous plaque. There is nonstenotic plaque in the right distal common carotid artery with a PSV of 81 cm/s and a EDV of 15 cm/s. There is smooth homogeneous plaque. There is nonstenotic plaque in the right bifurcation with a PSV of 71 cm/s and a EDV of 12 cm/s. There is irregular, heterogeneous calcified plaque. There is nonstenotic plaque in the right proximal internal carotid artery with a PSV of 73 cm/s and a EDV of 22 cm/s. There is calcified plaque. There is nonstenotic plaque in the right mid internal carotid artery with a PSV of 81 cm/s and a EDV of 18 cm/s. There is nonstenotic plaque in the right distal internal carotid artery with a PSV of 76 cm/s and a EDV of 19 cm/s. The right eca has a PSV of 87 cm/s and a EDV of 11 cm/s. The right vertebral artery has a PSV of 45 cm/s and a EDV of 19 cm/s. Left: There is nonstenotic plaque in the left proximal common carotid artery with a PSV of 68 cm/s and a EDV of 13 cm/s. There is smooth homogeneous plaque. There is nonstenotic plaque in the left mid common carotid artery with a PSV of 57 cm/s and a EDV of 13 cm/s. There is smooth homogeneous plaque. There is nonstenotic plaque in the left distal common carotid artery with a PSV of 56 cm/s and a EDV of 15 cm/s. There is smooth homogeneous plaque. The left bifurcation has a PSV of 55 cm/s and a EDV of 13 cm/s. There is calcified plaque. There is nonstenotic plaque in the left proximal internal carotid artery with a PSV of 46 cm/s and a EDV of 15 cm/s. There is nonstenotic plaque in the left mid internal carotid artery with a PSV of 88 cm/s and a EDV of 28 cm/s. There is nonstenotic plaque in the left distal internal carotid artery with a PSV of 72 cm/s and a EDV of 25 cm/s. The left eca has a PSV of 93 cm/s and a EDV of 12 cm/s. Carotid Results Right PSV EDV Assessment Proximal CCA 107 13 Non Stenotic Plaque Mid CCA 82 15 Non Stenotic Plaque Distal CCA 81 15 Non Stenotic Plaque Bifurcation 71 12 Non Stenotic Plaque Proximal ICA 73 22 Non Stenotic Plaque Mid ICA 81 18 Non Stenotic Plaque Distal ICA 76 19 Non Stenotic Plaque ECA 87 11 Normal Vertebral Artery 45 19 Normal Left PSV EDV Assessment Proximal CCA 68 13 Non Stenotic Plaque Mid CCA 57 13 Non Stenotic Plaque Distal CCA 56 15 Non Stenotic Plaque Bifurcation 55 13 Non Stenotic Plaque Proximal ICA 46 15 Non Stenotic Plaque Mid ICA 88 28 Non Stenotic Plaque Distal ICA 72 25 Non Stenotic Plaque ECA 93 12 Normal Ratio's Right ICA/CCA Ratio: 0.99 ICA/CCA Values: 81/82 Left ICA/CCA Ratio: 1.54 ICA/CCA Values: 88/57 Updated by Nav Loera MD, FACS on 11/12/2016 10:31:11 AM Nav Loera MD electronically signed on 11/12/2016 10:31:53 AM with status of Final
--- NOTE | 2016-11-12 14:48 | Internal Med Progress Note ---
<RiteshmemeEmiliano michaels - Last Filed: 11/12/16 15:18> Date of Encounter: 11/12/16 Time of Encounter: 10:05 - Assessment and plan (1) Cerebrovascular accident Current Visit: Yes Status: Acute Assessment and plan: Mr. Vizcarra presented with right-sided weakness and fell outside the window for thrombolysis. He recently failed swallow evaluation in emergency department but was seen by speech and was cleared for mechanical soft diet with thin liquids. Permissive hypertension recommended for 24 hours since admission. MRI of the brain demonstrates numerous foci of acute/early subacute infarcts in the supratentorial and infratentorial brain parenchymal bilaterally. Distribution of infarction raises the possibility of thromboembolic phenomenon from the central source. Diffuse parenchymal volume loss and sequelae of moderate to severe chronic microvascular ischemic changes. Echocardiogram performed 11/11/2016 demonstrates technically suboptimal study. Left ventricle ejection fraction was 50% with low normal LV systolic function. Mild concentric left ventricular hypertrophy and indeterminate diastolic function. There was a normal right ventricular size and function and no significant valvular dysfunction. Plan: - Patient to remain nothing by mouth for possible BRYAN, since TTE was nonrevealing. - Continue with permissive hypertension for a total of 24 hours since admission. - Highly suspicious for cardiac thrombosis as a source, patient sinus rhythm currently. Will likely need anticoagulation. - straightedge worker consult. - PT OT evaluation - Mechanically soft diet after completion of imaging tests. - Awaiting further recommendations from neurology. Qualifiers: CVA mechanism: unspecified Qualified Code(s): I63.9 - Cerebral infarction, unspecified (2) RONNIE (acute kidney injury) Current Visit: Yes Status: Acute Assessment and plan: Resolved. Likely secondary to urinary retention, as creatinine improves with IV rehydration and Lopez placements in the setting of BPH. Given that his acute kidney injury is also in the setting of CVA cannot rule out crystal embolization. Retroperitoneal ultrasound performed on 11/11/2016 demonstrates right kidney measuring 11.1 cm in length and left kidney measuring 11.3 cm in length. Kidney demonstrates normal cortical echogenicity. No evidence of hydronephrosis or intrarenal stones. Right kidney contains a 3.9 cm cyst and a cortical calcification. Left kidney contains several cysts measure up to 3.4 cm. No hydronephrosis. Bilateral renal cysts measuring up to 3.9 cm. Plan: - Continue IV rehydration - Continue monitoring renal function with daily labs. (3) Magnesium deficiency Current Visit: Yes Status: Acute Assessment and plan: Hypo-magnesium. IV magnesium 1 g. Continue 400 mg by mouth magnesium. Recheck magnesium with am labs. (4) Urinary retention Current Visit: Yes Status: Acute Assessment and plan: Likely BPH, patient's renal function improved greatly after urinary catheter placement. Continue urinary catheter at this time. Patient does take home medications for BPH. (5) Parkinson disease Current Visit: No Status: Chronic Assessment and plan: Continue home medications. (6) Cecum mass Current Visit: No Status: Suspected Assessment and plan: Had suspicion for cecal mass. May need outpatient work-up (7) DVT prophylaxis Current Visit: Yes Status: Acute Assessment and plan: Subcutaneous Heparin - Subjective Interval history: Mr. Vizcarra has been seen and evaluated patient bedside this morning. He is alert awake and interactive and answering questions appropriately. He denies any pain, discomfort, headaches, change in vision or trouble thinking. He denies any spasms or muscle pains in his right upper or lower extremities. 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 He is happy to see that he has had improvement from yesterday. - Constitutional Vitals: Temp Pulse Resp BP Pulse Ox 97.3 F L 91 15 112/78 94 L 11/12/16 07:00 11/12/16 11:00 11/12/16 11:00 11/12/16 11:00 11/12/16 11:00 General appearance: Present: cooperative, A&O X 3, pleasant, no acute distress - Head Head exam: Present: atraumatic, normocephalic - Eye Eye exam: Present: PERRL, conjuntiva pink, sclera anicteric Pupils: Present: PERRL - Neck Neck exam general surgery: Present: supple, trachea midline. Absent: lymphadenopathy - Respiratory Respiratory exam: Present: CTAB. Absent: accessory muscle use, rales, rhonchi, wheezes - Cardiovascular Cardiovascular exam: Present: RRR, +S1, +S2. Absent: diastolic murmur, gallop, rubs, systolic murmur Additional comments: Grade 2 systolic murmur. - GI/Abdominal GI/Abdominal exam: Present: normal bowel sounds, soft. Absent: splenomegaly, tenderness - Extremities Exam Extremities exam: Present: warm, radial pulses palpable and symetrical. Absent : calf tenderness, cyanotic, pedal edema - Neurological Exam Neurological exam: Present: alert Additional comments: Mr. Vizcarra has 0 out of 5 muscle strength in his right upper extremity with very minimal flexion of his fingers and minimal abduction of his fingers. His right lower extremity demonstrates improvement in strength he is able to flex and extend his ankle wiggle his toes, and flex at the knee of his right lower extremity. This is improvement compared to yesterday's neurologic examination. His sensation is remained intact in all 4 extremities. No new noticeable deficiencies. - Psychiatric Psychiatric exam: Present: depressed, flat affect - Skin Skin exam: Present: dry, intact Internal Medicine: Result - Labs CBC & Chem 7: 11/12/16 05:44 11/12/16 05:44 Labs: Short CBC 11/12/16 Range/Units 05:44 WBC 6.0 (4.3-11.1) K/mcL Hgb 10.7 L (12.9-16.9) g/dL Hct 32.4 L (37.5-50.1) % Plt Count 149 (140-400) K/mcL Neutrophils # 4.3 (1.6-8.9) K/mcL BMP 11/12/16 05:44 Sodium 138 Potassium 4.6 H Chloride 106 Carbon Dioxide 20 BUN 19 D Creatinine 0.97 D Glucose 76 Calcium 8.2 L Liver Function 11/12/16 Range/Units 05:44 Total Bilirubin 1.0 (0.2-1.2) mg/dL AST 20 (5-34) Units/L ALT 7 (0-55) Units/L Alkaline Phosphatase 64 (38-126) Units/L Albumin 2.5 L (3.5-5.0) g/dL - ABG Interpretation ABG results: PT/INR, D-dimer PT 14.1 Seconds (9.4-12.1) H 11/10/16 18:26 - Impressions Impressions Brain MRI 11/10/16 23:50 IMPRESSION: 1. Motion degraded examination. 2. Numerous foci of acute/early subacute infarction in the supratentorial and infratentorial brain parenchyma bilaterally. Distribution of infarctions raise the possibility for thromboembolic phenomenon from central source. 3. Diffuse parenchymal volume loss and sequela of moderate to severe chronic microvascular ischemic changes. The findings were sent to the Radiology Results Communication Center at 10:35 am on 11/11/2016to be communicated to a licensed caregiver. D/ / 11/11/2016 10:38:26 Jude Lambert MD / riya Interpreting Provider: Jude Lambert MD Retroperitoneum Ultrasound 11/11/16 13:30 IMPRESSION: No hydronephrosis. Bilateral renal cysts measuring up to 3.9 cm. D/ / Álvaro Jennings MD / Álvaro Jennings MD Interpreting Provider: Álvaro Jennings MD - VTE Documentation of Mechanical Device: Graduated compression elastic hosiery Consult Discharge Plan - Plan Referrals: Saloni Isaac, REHANGER [Primary Care Provider] - <Shakeel Mohan - Last Filed: 11/12/16 18:14> Date of Encounter: 11/12/16 - Assessment and plan (1) Stroke Current Visit: Yes Status: Acute Qualifiers: CVA mechanism: embolism Precerebral and cerebral artery: middle cerebral artery Laterality of affected vessel: bilateral Qualified Code(s): I63.413 - Cerebral infarction due to embolism of bilateral middle cerebral arteries (2) Stroke Current Visit: Yes Status: Acute Qualifiers: CVA mechanism: embolism Precerebral and cerebral artery: anterior cerebral artery Laterality of affected vessel: bilateral Qualified Code(s): I63.423 - Cerebral infarction due to embolism of bilateral anterior cerebral arteries (3) Stroke Current Visit: Yes Status: Acute Qualifiers: CVA mechanism: embolism Precerebral and cerebral artery: posterior cerebral artery Laterality of affected vessel: bilateral Qualified Code(s): I63.433 - Cerebral infarction due to embolism of bilateral posterior cerebral arteries (4) Stroke Current Visit: Yes Status: Acute Qualifiers: CVA mechanism: embolism Precerebral and cerebral artery: vertebral artery Laterality of affected vessel: bilateral Qualified Code(s): I63.113 - Cerebral infarction due to embolism of bilateral vertebral arteries (5) Renal failure Current Visit: Yes Status: Acute Assessment and plan: Postobstructive (6) Acute urinary retention Current Visit: Yes Status: Acute (7) Hypomagnesemia Current Visit: Yes Status: Acute (8) Atrial fibrillation Current Visit: Yes Status: Chronic Qualifiers: Atrial fibrillation type: chronic Qualified Code(s): I48.2 - Chronic atrial fibrillation - Constitutional Vitals: Temp Pulse Resp BP Pulse Ox 101.3 F H 81 16 148/75 93 L 11/12/16 15:00 11/12/16 15:00 11/12/16 15:00 11/12/16 15:00 11/12/16 15:00 Internal Medicine: Result - Labs CBC & Chem 7: 11/12/16 05:44 11/12/16 05:44 Labs: Short CBC 11/12/16 Range/Units 05:44 WBC 6.0 (4.3-11.1) K/mcL Hgb 10.7 L (12.9-16.9) g/dL Hct 32.4 L (37.5-50.1) % Plt Count 149 (140-400) K/mcL Neutrophils # 4.3 (1.6-8.9) K/mcL BMP 11/12/16 05:44 Sodium 138 Potassium 4.6 H Chloride 106 Carbon Dioxide 20 BUN 19 D Creatinine 0.97 D Glucose 76 Calcium 8.2 L Liver Function 11/12/16 Range/Units 05:44 Total Bilirubin 1.0 (0.2-1.2) mg/dL AST 20 (5-34) Units/L ALT 7 (0-55) Units/L Alkaline Phosphatase 64 (38-126) Units/L Albumin 2.5 L (3.5-5.0) g/dL - ABG Interpretation ABG results: PT/INR, D-dimer PT 14.1 Seconds (9.4-12.1) H 11/10/16 18:26 - Impressions Impressions Brain MRI 11/10/16 23:50 IMPRESSION: 1. Motion degraded examination. 2. Numerous foci of acute/early subacute infarction in the supratentorial and infratentorial brain parenchyma bilaterally. Distribution of infarctions raise the possibility for thromboembolic phenomenon from central source. 3. Diffuse parenchymal volume loss and sequela of moderate to severe chronic microvascular ischemic changes. The findings were sent to the Radiology Results Communication Center at 10:35 am on 11/11/2016to be communicated to a licensed caregiver. D/ / 11/11/2016 10:38:26 Jude Lambert MD / riya Interpreting Provider: Jude Lambert MD Chest X-Ray 11/12/16 16:18 IMPRESSION: No acute infiltrate D/ / Nav Kaufman MD / Nav Kaufman MD Interpreting Provider: Nav Kaufman MD - Attending Attestation I examined this patient and my medical decision-making was reviewed with the Resident Physician on 11/12/16. I agree with the documented findings, disposition and treatment plan as described except to the extent set forth below. Mr. Vizcarra is currently admitted for acute CVA - multiple. He is high risk due to potential for worsening neurologic status. Mr. Vizcarra is a little better today. He is able to move his R leg some. He is tolerating some diet. No dyspnea. No GI symptoms. Exam Alert. Comfortable Moving R leg some Unable to move R arm Heart irreg with murmur Lungs coarse Abd soft I/P 1. Acute CVA - R middle cerebral, L middle cerebral, bilateral anterior cerebral and bilateral posterior cerebral as well as bilateral vertebral 2. Postobstructive renal failure - resolved 3. Urinary retention 4. Parkinsons 5. Hypomagnesemia Further diagnoses and plan as above.
[2016-11-12] MEDS ORDERED: Magnesium Sulfate 1 GM in D5% in Water 100 ML IVPB ONE (15:27)
[2016-11-12] MEDS: Acetaminophen 325 MG TABLET PO PRN (16:24)
[2016-11-12] MEDS: *HR* Rivaroxaban 15 MG TABLET PO SCH (16:33)
[2016-11-12] MEDS ORDERED: Ipratropium/Albuterol Neb 3 ML IH PRN (17:20)
[2016-11-12] MEDS: Magnesium Oxide 400 MG TABLET PO SCH ×2 (20:02→20:12)
[2016-11-12] MEDS: traZODone 50 MG TABLET PO SCH (20:03)
--- NOTE | 2016-11-12 22:40 | Electrocardiograph Report ---
[facility] Test Date: 2016-11-10 Pat Name: Bello Vizcarra Department: 104 Room: 2NE31 Gender: M Hospital Fellow: CINDY : 1935 Requested By: Elie Guzman Order Number: [id number] Reading MD: Zack Dias MD Measurements Intervals [place] Rate: 92 P: 10 [place]: 171 QRS: -72 QRSD: 123 T: 13 QT: 386 QTc: 436 Interpretive Statements SINUS RHYTHM RIGHT BUNDLE BRANCH BLOCK LEFT ANTERIOR FASCICULAR BLOCK Electronically Signed On 11-12-16 22:39:58 EST by Zack Dias MD
[2016-11-13] MEDS: Insulin LISPRO 300 UNITS/3 ML VIAL SQ SCH ×4 (01:05→18:40)
[2016-11-13 05:43] LABS: Basophils % 0.6 %; Eosinophils # 0.2 K/mcL (0.0-0.6); Eosinophils % 3.6 %; Hematocrit 34.4 % (37.5-50.1); Hemoglobin 11.8 g/dL (12.9-16.9); Immature Granulocytes % 0.2 % (0-4); Lymphocytes # 0.9 K/mcL (0.6-4.6); Lymphocytes % 14.4 %; Mean Corpuscular HGB Conc 34.3 g/dL (31.6-35.5); Mean Corpuscular Hemoglobin 31.5 pg (28.0-33.3); Mean Corpuscular Volume 91.7 fL (83.0-100.0); Monocytes # 0.7 K/mcL (0.0-1.3); Monocytes % 10.8 %; Neutrophils # 4.6 K/mcL (1.6-8.9); Platelet Count 151 K/mcL (140-400); Red Blood Count 3.75 M/mcL (4.19-5.50); Red Cell Distribution Width 13.3 % (11.5-14.5); Segmented Neutrophils % 70.4 %
[2016-11-13 05:56] LABS: Alanine Aminotransferase 12 Units/L (0-55); Albumin 2.6 g/dL (3.5-5.0); Albumin/Globulin Ratio 0.7 (1.1-2.2); Alkaline Phosphatase 70 Units/L (38-126); Aspartate Amino Transferase 16 Units/L (5-34); BUN/Creatinine Ratio 16 (6-26); Bilirubin,Total 0.9 mg/dL (0.2-1.2); Blood Urea Nitrogen 15 mg/dL (8-26); Calcium 8.4 mg/dL (8.6-10.8); Carbon Dioxide 20 mEq/L (19-29); Chloride 106 mEq/L (98-109); Globulin 3.6 g/dL (2.4-3.5); Glucose 90 mg/dL (70-99); Magnesium 1.3 mg/dL (1.6-2.6); Osmolality,Calculated 286 (280-300); Sodium 138 mEq/L (136-145); Total Protein 6.2 g/dL (6.0-8.3); eGFR For African Americans > 60 (> 60); eGFR For Non-African Americans > 60 (> 60)
[2016-11-13] MEDS: 0.9 % Sodium Chloride 1,000 ML IVC SCH ×3 (05:59→18:40)
--- NOTE | 2016-11-13 09:55 | Internal Med Progress Note ---
<Jose Alberto Martins - Last Filed: 11/13/16 17:18> Date of Encounter: 11/13/16 Time of Encounter: 08:15 - Assessment and plan (1) Thrombus of right atrial appendage Current Visit: Yes Status: Acute Assessment and plan: -BRYAN Reveals R Atrial Appendage thrombus on 11/13/16 -Patient started Xerelto yesterday. -Will have to have cardiology followup as an outpatient. (2) Cerebrovascular accident Current Visit: Yes Status: Acute Assessment and plan: Mr. Vizcarra presented with right-sided weakness and fell outside the window for thrombolysis. He recently failed swallow evaluation in emergency department but was seen by speech and was cleared for mechanical soft diet with thin liquids. Permissive hypertension recommended for 24 hours since admission. MRI of the brain demonstrates numerous foci of acute/early subacute infarcts in the supratentorial and infratentorial brain parenchymal bilaterally. Distribution of infarction raises the possibility of thromboembolic phenomenon from the central source. Diffuse parenchymal volume loss and sequelae of moderate to severe chronic microvascular ischemic changes. Echocardiogram performed 11/11/2016 demonstrates technically suboptimal study. Left ventricle ejection fraction was 50% with low normal LV systolic function. Mild concentric left ventricular hypertrophy and indeterminate diastolic function. There was a normal right ventricular size and function and no significant valvular dysfunction. Plan: - BRYAN shows atrial thrombus - PT OT evaluation - Mechanically soft diet after completion of imaging tests. - Neurology following. Full anticoagulation recommended. Patient on Xerelto. Qualifiers: CVA mechanism: unspecified Qualified Code(s): I63.9 - Cerebral infarction, unspecified (3) RONNIE (acute kidney injury) Current Visit: Yes Status: Acute Assessment and plan: Resolved. Likely secondary to urinary retention, as creatinine improves with IV rehydration and Lopez placements in the setting of BPH. Given that his acute kidney injury is also in the setting of CVA cannot rule out crystal embolization. Retroperitoneal ultrasound performed on 11/11/2016 demonstrates right kidney measuring 11.1 cm in length and left kidney measuring 11.3 cm in length. Kidney demonstrates normal cortical echogenicity. No evidence of hydronephrosis or intrarenal stones. Right kidney contains a 3.9 cm cyst and a cortical calcification. Left kidney contains several cysts measure up to 3.4 cm. No hydronephrosis. Bilateral renal cysts measuring up to 3.9 cm. Plan: - Continue IV rehydration - Continue monitoring renal function with daily labs. (4) DVT prophylaxis Current Visit: Yes Status: Acute Assessment and plan: -On Xerelto. (5) Magnesium deficiency Current Visit: Yes Status: Acute Assessment and plan: Continue 400 mg by mouth magnesium. Recheck magnesium with am labs. (6) Urinary retention Current Visit: Yes Status: Acute Assessment and plan: Likely BPH, patient's renal function improved greatly after urinary catheter placement. Continue urinary catheter at this time. Patient does take home medications for BPH. (7) Parkinson disease Current Visit: No Status: Chronic Assessment and plan: Continue home medications. (8) Cecum mass Current Visit: No Status: Suspected Assessment and plan: Had suspicion for cecal mass. May need outpatient work-up (9) Wheezing on auscultation Current Visit: Yes Status: Acute Assessment and plan: -Patient has increase wheezing compared to yesterday. -Repeat CXR shows no acute changes. Patient may have COPD. Plan -Duonebs q4h - - Time Spent With Patient 25 - 35 minutes - Subjective Interval history: Per the nurse and attending, patient is doing better. He is responsive to commands and does murmur words. Making incoherent sentences. - Constitutional Vitals: Temp Pulse Resp BP Pulse Ox 99.4 F 102 16 157/104 94 L 11/13/16 07:02 11/13/16 07:02 11/13/16 07:02 11/13/16 07:02 11/13/16 07:02 General appearance: Present: cooperative, A&O X 3, pleasant, no acute distress - Head Head exam: Present: atraumatic, normocephalic - Eye Eye exam: Present: PERRL, conjuntiva pink, sclera anicteric - Respiratory Respiratory exam: Present: wheezes - Cardiovascular Cardiovascular exam: Present: RRR, systolic murmur. Absent: diastolic murmur - GI/Abdominal GI/Abdominal exam: Present: normal bowel sounds, soft, no peritoneal signs. Absent: distended, tenderness - Neurological Exam Neurological exam: Present: altered. Absent: oriented X3 Internal Medicine: Result - Labs CBC & Chem 7: 11/13/16 05:23 11/13/16 05:23 Labs: Short CBC 11/13/16 Range/Units 05:23 WBC 6.5 (4.3-11.1) K/mcL Hgb 11.8 L (12.9-16.9) g/dL Hct 34.4 L (37.5-50.1) % Plt Count 151 (140-400) K/mcL Neutrophils # 4.6 (1.6-8.9) K/mcL BMP 11/13/16 05:23 Sodium 138 Potassium 4.0 Chloride 106 Carbon Dioxide 20 BUN 15 Creatinine 0.96 Glucose 90 Calcium 8.4 L Liver Function 11/13/16 Range/Units 05:23 Total Bilirubin 0.9 (0.2-1.2) mg/dL AST 16 (5-34) Units/L ALT 12 (0-55) Units/L Alkaline Phosphatase 70 (38-126) Units/L Albumin 2.6 L (3.5-5.0) g/dL - ABG Interpretation ABG results: PT/INR, D-dimer PT 14.1 Seconds (9.4-12.1) H 11/10/16 18:26 - Impressions Impressions Chest X-Ray 11/12/16 16:18 IMPRESSION: No acute infiltrate D/ / Nav Kaufman MD / Nav Kaufman MD Interpreting Provider: Nav Kaufman MD - VTE Documentation of Mechanical Device: Graduated compression elastic hosiery Consult Discharge Plan - Plan Referrals: Saloni Isaac, NAME PLATE STAMPER [Primary Care Provider] - <Shakeel Mohan - Last Filed: 11/13/16 18:28> Date of Encounter: 11/13/16 - Assessment and plan (1) Thrombus of left atrial appendage without antecedent myocardial infarction Current Visit: Yes Status: Acute Assessment and plan: On Xarelto. (2) Stroke Current Visit: Yes Status: Acute Qualifiers: CVA mechanism: embolism Precerebral and cerebral artery: middle cerebral artery Laterality of affected vessel: bilateral Qualified Code(s): I63.413 - Cerebral infarction due to embolism of bilateral middle cerebral arteries (3) Stroke Current Visit: Yes Status: Acute Qualifiers: CVA mechanism: embolism Precerebral and cerebral artery: anterior cerebral artery Laterality of affected vessel: bilateral Qualified Code(s): I63.423 - Cerebral infarction due to embolism of bilateral anterior cerebral arteries (4) Stroke Current Visit: Yes Status: Acute Qualifiers: CVA mechanism: embolism Precerebral and cerebral artery: posterior cerebral artery Laterality of affected vessel: bilateral Qualified Code(s): I63.433 - Cerebral infarction due to embolism of bilateral posterior cerebral arteries (5) Stroke Current Visit: Yes Status: Acute Qualifiers: CVA mechanism: embolism Precerebral and cerebral artery: vertebral artery Laterality of affected vessel: bilateral Qualified Code(s): I63.113 - Cerebral infarction due to embolism of bilateral vertebral arteries (6) Renal failure Current Visit: Yes Status: Acute (7) Acute urinary retention Current Visit: Yes Status: Resolved (8) Hypomagnesemia Current Visit: Yes Status: Acute (9) Atrial fibrillation Current Visit: Yes Status: Chronic Qualifiers: Atrial fibrillation type: chronic Qualified Code(s): I48.2 - Chronic atrial fibrillation - Constitutional Vitals: Temp Pulse Resp BP Pulse Ox 100.1 F H 95 16 118/82 94 L 11/13/16 15:38 11/13/16 16:00 11/13/16 16:00 11/13/16 16:00 11/13/16 16:00 Internal Medicine: Result - Labs CBC & Chem 7: 11/13/16 05:23 11/13/16 05:23 Labs: Short CBC 11/13/16 Range/Units 05:23 WBC 6.5 (4.3-11.1) K/mcL Hgb 11.8 L (12.9-16.9) g/dL Hct 34.4 L (37.5-50.1) % Plt Count 151 (140-400) K/mcL Neutrophils # 4.6 (1.6-8.9) K/mcL BMP 11/13/16 05:23 Sodium 138 Potassium 4.0 Chloride 106 Carbon Dioxide 20 BUN 15 Creatinine 0.96 Glucose 90 Calcium 8.4 L Liver Function 11/13/16 Range/Units 05:23 Total Bilirubin 0.9 (0.2-1.2) mg/dL AST 16 (5-34) Units/L ALT 12 (0-55) Units/L Alkaline Phosphatase 70 (38-126) Units/L Albumin 2.6 L (3.5-5.0) g/dL - ABG Interpretation ABG results: PT/INR, D-dimer PT 14.1 Seconds (9.4-12.1) H 11/10/16 18:26 - Impressions Impressions Chest X-Ray 11/13/16 12:10 IMPRESSION: Bibasilar atelectasis, with COPD, though no other acute cardiopulmonary process identified. D/ / Joni Pascual MD / Joni Pascual MD Interpreting Provider: Joni Pascual MD - Attending Attestation I examined this patient and my medical decision-making was reviewed with the Resident Physician on 11/13/16. I agree with the documented findings, disposition and treatment plan as described except to the extent set forth below. Mr. Vizcarra is currently admitted for multiple CVAs. He has been found to have a left atrial appendage thrombus. He is high risk due to the potential for further embolic events. Mr. Vizcarra is able to move more today. He is speaking some. No pain. Wheezing noted. No GI symptoms noted. Exam Alert. Speaking some. Heart irreg Lungs with wheeze bilaterally. Moving R side a little more. I/P 1. L atrial appendage thrombus 2. Multiple bilateral CVA 3. Atrial fib Further diagnoses and plan as above.
[2016-11-13] MEDS ORDERED: *HR* FentaNYL (PF) 100 MCG/2 ML VIAL ONE (10:33)
[2016-11-13] MEDS ORDERED: *HR* Midazolam HCl 2 MG/2 ML VIAL ONE (10:33)
[2016-11-13] MEDS ORDERED: Naloxone 0.4 MG/ML INJ ONE (10:34)
--- NOTE | 2016-11-13 11:07 | Neurology Progress Note ---
<Emiliano Muro - Last Filed: 11/13/16 11:04> Date of Encounter: 11/13/16 Time of Encounter: 11:04 Assessment and Plan (1) Cerebrovascular accident Current Visit: Yes Status: Acute - MRI c/w multiple supra/infratentorial embolic acute/subacute infarctions - Likely secondary to A-fib - Exam stable today compared to yesterday - CHADS-VASC score is at least 6 - Would recommend full anti-coagulation for this patient - Agent of choice per primary team - Continue statin as well as close blood pressure and blood sugar control - Continue home meds - Will continue to follow - Further recommendations pending attending evaluation Qualifiers: CVA mechanism: unspecified Qualified Code(s): I63.9 - Cerebral infarction, unspecified (2) Altered mental status Current Visit: No Status: Acute Qualifiers: Altered mental status type: transient alteration of awareness Qualified Code(s): R40.4 - Transient alteration of awareness (3) Dementia Current Visit: No Status: Chronic Qualifiers: Dementia type: unspecified type Dementia behavioral disturbance: without behavioral disturbance Qualified Code(s): F03.90 - Unspecified dementia without behavioral disturbance (4) Generalized weakness Current Visit: No Status: Chronic Subjective Principal diagnosis: CVA Interval history: No acute events overnight. Patient still unable to fully participate in HPI/ ROS. Seem exam for further detail. Nursing staff does report several episodes of diarrhea. No melena or hematochezia. Objective - Constitutional Vitals: Temp Pulse Resp BP Pulse Ox 99.4 F 102 16 157/104 94 L 11/13/16 07:02 11/13/16 07:02 11/13/16 07:02 11/13/16 07:02 11/13/16 07:02 General appearance: Present: A&O X 0 (Name: "Oh, I don't know", Location: "unable to articulate any recognizable words", Date: "no recognizable words"), cooperative, pleasant, no acute distress. Absent: answers questions appropriately - Head Head exam: Present: atraumatic, normocephalic - Eye Eye exam: Present: EOMI (grossly, patient unable to follow commands to full examine ), PERRL Pupils: Present: normal accommodation, PERRL - Extremities Exam Extremities exam: Present: normal capillary refill, pedal edema (mild ), warm, radial pulses palpable and symetrical. Absent: calf tenderness - Neurological Exam Sensorimotor examination: Absent: intact, pronator drift (unable to examine 2/2 weakness) Motor Examination: Absent: grossly full strength in all extremities, full strength in all major muscle groups Motor examination - right side: 1/5: deltoids, biceps, triceps, wrist flexion, wrist extension, naval marine engineer, 3/5: hip flexors, tibialis Anterior, quadriceps, toe extension (EHL), plantarflexion Motor examination - left side: 5: deltoids, biceps, triceps, wrist flexion, wrist extension, hip flexors, naval marine engineer, quadriceps, tibialis Anterior, toe extension (EHL), plantarflexion Sensation intact: Present: other (Difficult to assess as quite inconsistent but able to withdraw to deep stimulation in all 4 extremities) Reflexes: Patella: 1+, Achilles: 1+ Mental Status Examination: Present: awake, alert, oriented to person (but does not know name), opens eyes to voice, opens eyes to noxious stimulation, makes eye contact, follows simple commands, localizes noxious stimulation, expressive aphasia, rambling. Absent: follows commands appropriately (only some commands) Cranial nerve examination: Present: PERRL, EOMI (grossly, patient unable to fully follow commands), visual astorga intact Cranial Nerve Exam: tongue protrudes: Right - Expanded Neurological Exam Neurological exam expanded: Present: protecting the airway Speech: Present: expressive aphasia, garbled Cranial Nerves: tongue deviation PM: Abnormal Right - VTE Documentation of Mechanical Device: Graduated compression elastic hosiery Results - Laboratory Findings CBC and BMP: 11/13/16 05:23 11/13/16 05:23 Abnormal lab findings: Abnormal lab results RBC 3.75 M/mcL (4.19-5.50) L 11/13/16 05:23 Hgb 11.8 g/dL (12.9-16.9) L 11/13/16 05:23 Hct 34.4 % (37.5-50.1) L 11/13/16 05:23 PT 14.1 Seconds (9.4-12.1) H 11/10/16 18:26 Calcium 8.4 mg/dL (8.6-10.8) L 11/13/16 05:23 Magnesium 1.3 mg/dL (1.6-2.6) L 11/13/16 05:23 Troponin I 0.66 ng/mL (0-0.03) H* 11/11/16 03:44 Albumin 2.6 g/dL (3.5-5.0) L 11/13/16 05:23 Globulin 3.6 g/dL (2.4-3.5) H 11/13/16 05:23 Albumin/Globulin Ratio 0.7 (1.1-2.2) L 11/13/16 05:23 Triglycerides 150 mg/dL (< 150) H 11/11/16 03:44 HDL Cholesterol 29 mg/dL (40-59) L 11/11/16 03:44 Consult Discharge Plan - Plan Referrals: Saloni Isaac, SOCIAL MEDIA INTERN [Primary Care Provider] - <Donn Mark I - Last Filed: 11/14/16 16:26> Date of Encounter: 11/13/16 Assessment and Plan (1) Cerebrovascular accident Current Visit: Yes Status: Acute Patient seen and examined no significant change in his overall status is scheduled for BRYAN. Follow the results though I would recommend anticoagulation with his history of chronic A. fib and at the same time with multiple infarct in his both hemisphere is strongly suspect this an embolic source likely in the heart. Donn Mark MD Qualifiers: CVA mechanism: unspecified Qualified Code(s): I63.9 - Cerebral infarction, unspecified (2) Altered mental status Current Visit: No Status: Acute Qualifiers: Altered mental status type: transient alteration of awareness Qualified Code(s): R40.4 - Transient alteration of awareness (3) Dementia Current Visit: No Status: Chronic Qualifiers: Dementia type: unspecified type Dementia behavioral disturbance: without behavioral disturbance Qualified Code(s): F03.90 - Unspecified dementia without behavioral disturbance (4) Generalized weakness Current Visit: No Status: Chronic Objective - Constitutional Vitals: Temp Pulse Resp BP Pulse Ox 102.1 F H 124 18 183/102 92 L 11/14/16 06:37 11/14/16 06:37 11/14/16 08:51 11/14/16 06:37 11/14/16 08:51 Results - Laboratory Findings CBC and BMP: 11/14/16 08:44 11/14/16 05:33 Abnormal lab findings: Abnormal lab results RBC 4.04 M/mcL (4.19-5.50) L 11/14/16 08:44 Hgb 12.4 g/dL (12.9-16.9) L 11/14/16 08:44 Hct 37.1 % (37.5-50.1) L 11/14/16 08:44 Neutrophils # 10.3 K/mcL (1.6-8.9) H 11/14/16 08:44 Lymphocytes # 0.3 K/mcL (0.6-4.6) L 11/14/16 08:44 ESR 77 mm/hr (0-10) H 11/14/16 09:32 PT 16.8 Seconds (9.4-12.1) H 11/14/16 08:44 Carbon Dioxide 16 mEq/L (19-29) L 11/14/16 05:33 Creatinine 2.03 mg/dL (0.72-1.25) H D 11/14/16 05:33 Est GFR ( Amer) 38 (> 60) L 11/14/16 05:33 Est GFR (Non-Af Amer) 32 (> 60) L 11/14/16 05:33 Glucose 151 mg/dL (70-99) H 11/14/16 05:33 POC Glucose 148 (58-89) H 11/14/16 05:51 Lactic Acid 2.4 mmol/L (0.5-2.2) H 11/14/16 09:32 Troponin I 0.25 ng/mL (0-0.03) H* 11/14/16 08:44 C-Reactive Protein 103 mg/L (Less than 5) H 11/14/16 09:32 Albumin 2.6 g/dL (3.5-5.0) L 11/13/16 05:23 Globulin 3.6 g/dL (2.4-3.5) H 11/13/16 05:23 Albumin/Globulin Ratio 0.7 (1.1-2.2) L 11/13/16 05:23 Triglycerides 150 mg/dL (< 150) H 11/11/16 03:44 HDL Cholesterol 29 mg/dL (40-59) L 11/11/16 03:44
[2016-11-13] MEDS: Ipratropium/Albuterol Neb 3 ML IH SCH ×4 (11:10→23:25)
[2016-11-13] MEDS: Carbidopa/Levodopa 25/100 TABLET PO SCH ×3 (14:19→20:13)
[2016-11-13] MEDS: Isosorbide MONOnitrate (24 HR) 60 MG TAB.ER.24H PO SCH (14:20)
[2016-11-13] MEDS: Multivit/Ca/Min/Fe/FA 1 TAB TABLET PO SCH (14:20)
[2016-11-13] MEDS: Magnesium Oxide 400 MG TABLET PO SCH ×2 (14:21→20:14)
[2016-11-13] MEDS: Aspirin 81 MG TAB.CHEW PO SCH (14:21)
[2016-11-13] MEDS: Fluticasone Propionate Nasal 50 MCG/SPRAY BOTTLE NS SCH (14:21)
--- NOTE | 2016-11-13 15:55 | ECHO - Doppler Report ---
Transesophageal Echocardiogram Name: Bello Vizcarra Date of Study: 11/13/2016 Date: 1935 Ht: 72.0in Medical Record#: [id number] Age: 81 Wt: 152.0lb Gender: Male BSA: 1.9 Order #: [id number] Location: [facility] Room #: [id number] Reading Physician: Anabell Cooper DO Compugraph Operator: Jose Agosto RDCS Ordering Physician: Emiliano Khan DO Primary Physician: Saloni Isaac CNP Indications: Cerebrovascular Accident Impressions: Left atrial appendage thrombus was visualized on this study. LV and RV function appear normal. Trivial valvular regurgitation. Findings communicated to ordering provider. Medication Given: Time Medication Dose Units Route Medications per makeup instructor Obdulia Findings: Study Quality * Technically adequate exam. ECG Findings * Sinus rhythm with PACs Left Ventricle * Normal size and function. Right Ventricle * The right ventricle was normal in size and systolic function. Left Atrium * No thrombus present. * The LA appendage flow velocity is normal. * MAHENDRA demonstrates clot. Aortic Valve * Trace/trivial aortic regurgitation. * The aortic valve is Tricuspid. * Valve is mildly calcified. Mitral Valve * Normal structure and function * Trace/trivial mitral regurgitation. Tricuspid Valve * no tricuspid regurgitation. * Poor visualization. Pulmonic Valve * Not well visualized. * No pulmonic regurgitation. Pulmonary Artery * Normal pulmonary artery. Aorta * The aortic root is not dilated. * Grade II plaquing of descending thoracic aorta. Procedure Summary: Patient consent was obtained by primary team taking care of him. He was consented through his . The patient was NPO for the six hours prior to the procedure. The patient had a recent swallowing evaluation and diet has been advanced. The patient denied loose teeth. He has no top teeth and 3 bottom teeth that were not loose. The patient was monitored with periodic automated blood pressures and continuous pulse oximetry and telemetry. Continuous oxygen was administered by RI. The patient's posterior oropharynx was anesthetized. The patient was then placed in the left lateral decubitus position, the neck was flexed, and a bite block was placed in the patient's mouth. IV sedation was administered. Once adequate sedation was achieved, a well-lubricated anteflexed multipoint intraesophageal echocardiographic probe was inserted into the midline posterior oropharynx. Gentle pressure was applied as the patient swallowed and the esophagus was intubated without difficulty. The scope was advanced to the mid esophagus without encountering resistance. Images were obtained from the mid and upper esophagus. Images from the gastric globe were obtained. The scope was then rotated approximately 180 degrees and withdrawn, visualizing the length of the aorta. The scope was then slowly withdrawn as the patient was continually suctioned. The patient tolerated the procedure well. History: Hypertension Diabetes Family History of CAD History of CAD/PTCA Myocardial Infarction Valvular Disease Previous Echo11/11/16 BP 188 / 107 Updated by Anabell Cooper on 11/13/2016 3:44:56 PM electronically signed on 11/13/2016 3:51:18 PM with status of Final Wall Motion Cade: 1=Normal, 2=Hypokinesis, 3=Akinesis, 4=Dyskinesis, 5=Aneurysmal, 6=Hyperkinetic, X=Not Visualized (Blank)=Missing
[2016-11-13] MEDS: *HR* Rivaroxaban 15 MG TABLET PO SCH (16:22)
[2016-11-13] MEDS ORDERED: Magnesium Sulfate 2 GM in D5% in Water 100 ML IV ONE (19:09)
[2016-11-13] MEDS: traZODone 50 MG TABLET PO SCH (20:14)
[2016-11-14] MEDS: Insulin LISPRO 300 UNITS/3 ML VIAL SQ SCH ×4 (01:43→16:16)
[2016-11-14] MEDS: 0.9 % Sodium Chloride 1,000 ML IVC SCH ×2 (02:22→10:52)
[2016-11-14] MEDS: Ipratropium/Albuterol Neb 3 ML IH SCH ×5 (03:30→21:17)
[2016-11-14 06:06] LABS: Calcium 8.8 mg/dL (8.6-10.8); Magnesium 2.2 mg/dL (1.6-2.6); Phosphorous 4.3 mg/dL (2.3-4.7); Potassium 4.5 mEq/L (3.5-4.5)
[2016-11-14] MEDS: Acetaminophen 325 MG TABLET PO PRN (06:47)
[2016-11-14] MEDS ORDERED: *HR* Metoprolol 5 MG/5 ML VIAL IVP ONE ×3 (06:50→09:35)
[2016-11-14 08:54] LABS: Basophils % 0.3 %; Eosinophils % 0.2 %; Hematocrit 37.1 % (37.5-50.1); Hemoglobin 12.4 g/dL (12.9-16.9); Immature Granulocytes % 0.3 % (0-4); Lymphocytes # 0.3 K/mcL (0.6-4.6); Lymphocytes % 2.6 %; Mean Corpuscular HGB Conc 33.4 g/dL (31.6-35.5); Mean Corpuscular Hemoglobin 30.7 pg (28.0-33.3); Mean Corpuscular Volume 91.8 fL (83.0-100.0); Mean Platelet Volume 9.8 fL (9.4-12.4); Monocytes # 0.3 K/mcL (0.0-1.3); Monocytes % 3.1 %; Platelet Count 154 K/mcL (140-400); Red Blood Count 4.04 M/mcL (4.19-5.50); Red Cell Distribution Width 13.2 % (11.5-14.5); Segmented Neutrophils % 93.5 %
[2016-11-14] MEDS: Isosorbide MONOnitrate (24 HR) 60 MG TAB.ER.24H PO SCH (08:54)
[2016-11-14] MEDS: Aspirin 81 MG TAB.CHEW PO SCH (08:54)
[2016-11-14] MEDS: Multivit/Ca/Min/Fe/FA 1 TAB TABLET PO SCH (08:54)
[2016-11-14] MEDS: Carbidopa/Levodopa 25/100 TABLET PO SCH ×3 (08:54→21:02)
[2016-11-14] MEDS: Magnesium Oxide 400 MG TABLET PO SCH ×2 (08:54→21:02)
[2016-11-14 08:57] LABS: Neutrophils # 10.3 K/mcL (1.6-8.9)
[2016-11-14 09:01] LABS: INR 1.5; Prothrombin Time 16.8 Seconds (9.4-12.1)
[2016-11-14 09:03] LABS: Activated Partial Thrombo Time 30.9 Seconds (26.0-36.0)
--- NOTE | 2016-11-14 09:26 | Internal Med Progress Note ---
<Wilfredo Stewart P - Last Filed: 11/14/16 17:59> Date of Encounter: 11/14/16 - Constitutional Vitals: Temp Pulse Resp BP Pulse Ox 100 F H 91 18 108/67 96 11/14/16 15:18 11/14/16 15:18 11/14/16 16:14 11/14/16 15:18 11/14/16 16:14 Internal Medicine: Result - Labs CBC & Chem 7: 11/14/16 08:44 11/14/16 05:33 Labs: Short CBC 11/14/16 Range/Units 08:44 WBC 11.0 D (4.3-11.1) K/mcL Hgb 12.4 L (12.9-16.9) g/dL Hct 37.1 L (37.5-50.1) % Plt Count 154 (140-400) K/mcL Neutrophils # 10.3 H (1.6-8.9) K/mcL BMP 11/14/16 05:33 Sodium 141 Potassium 4.5 Chloride 108 Carbon Dioxide 16 L BUN 23 Creatinine 2.03 H D Glucose 151 H Calcium 8.8 Cardiac Enzymes 11/14/16 Range/Units 08:44 Troponin I 0.25 H* (0-0.03) ng/mL Urine 11/14/16 Range/Units 10:35 Urine Color Yellow (Yellow) Urine Clarity Cloudy A (Clear) Urine pH 6.0 (5.0-8.0) pH Units Ur Specific [place] 1.008 L (1.010-1.025) Urine Protein Negative (Neg-Trace) mg/dL Urine Glucose (UA) Normal (Normal) mg/dL - ABG Interpretation ABG results: PT/INR, D-dimer PT 16.8 Seconds (9.4-12.1) H 11/14/16 08:44 - Impressions Impressions Chest X-Ray 11/14/16 06:51 IMPRESSION: No acute cardiopulmonary disease. D/ / 11/14/2016 08:05:11 Nitin Caballero MD / sarai Interpreting Provider: Nitin Caballero MD Abdomen/Pelvis CT 11/14/16 09:30 IMPRESSION: Probable at least moderate distension of the urinary bladder and dilation of the renal pelves/ureters suggesting outlet obstruction. A Sylvester catheter is abnormally located, balloon within the prostate gland. Repositioning is recommended. The findings were sent to the Radiology Results Communication [facility] at 10:39 am on 11/14/2016to be communicated to a licensed caregiver. D/ / Nasrin Mahajan Cha, MD / Nasrin Mahajan Cha, MD Interpreting Provider: Nasrin Mahajan Cha, MD Chest CT 11/14/16 09:49 IMPRESSION: Small right pleural effusion as well as dependent mild right middle lobe, right upper lobe and bilateral lower lobe airspace disease, likely atelectasis. Pneumonia cannot be completely excluded. D/ / Nasrin Mahajan Cha, MD / Nasrin Mahajan Cha, MD Interpreting Provider: Nasrin Mahajan Cha, MD Head CT 11/14/16 09:51 IMPRESSION: No acute intracranial abnormality. D/ / Phan Park MD / Phan Pakr MD Interpreting Provider: Phan Park MD Consult Discharge Plan - Plan Referrals: Saloni Isaac, CAN FEEDER [Primary Care Provider] - - Attending Attestation I examined this patient and my medical decision-making was reviewed with the BUSINESS IMPROVEMENT MANAGER/PA/Advanced Practice Nurse/Resident Physician. I agree with the documented findings, disposition and treatment plan as described except to the extent set forth below. will follow neurology recommendations <Jose Alberto Martins - Last Filed: 11/14/16 21:01> Date of Encounter: 11/14/16 Time of Encounter: 07:30 - Assessment and plan (1) Sepsis Current Visit: Yes Status: Acute Assessment and plan: -Patient has acute mental status change, RONNIE. Fever, tachycardia, Repeat urinalysis shows bacteria. Awaiting cultures. CT of the abdomen and head performed -Patient does have chronic Sylvester use. -Acute mental status change and RONNIE could be due to Sylvester misplacement due to urinary retention. CT exam showed distend bladder Replacement of Sylvester yielded 900 mL out. We will evaluate labs Plan - Fluids restarted, bolus and maintenance fluids, patient started on Zosyn and vancomycin. Pharmacy to dose. Blood cultures ordered -Continue with rectal Tylenol for fever -Await sensitivity of the urine culture for antibiotic choice. Continue current abx until that time. Qualifiers: Sepsis type: sepsis due to unspecified organism Qualified Code(s): A41.9 - Sepsis, unspecified organism (2) Code status needs review Current Visit: Yes Status: Acute Assessment and plan: -Greater than 45 minutes pain with the granddaughter discussing CODE STATUS along with her . She feels that heroic measures or further testing such as imaging is not necessary. Feels that antibiotic use and non-invasive measures should be continued. -Discussed with family that current CODE STATUS involves compressions if there is a pulse. Granddaughter states that he would not desire this. Reiterated the fact that I need 's approval before any CODE Status changes can be made. may be able to be present on . -Per [facility], patient currently does not have a POA established, has Parkinson's. Contact information written on the board. -Consider palliative care consult in near future. (3) Thrombus of right atrial appendage Current Visit: Yes Status: Acute Assessment and plan: -BRYAN Reveals R Atrial Appendage thrombus on 11/13/16 -Patient started Xerelto 11/13/16. -If patient unable to swallow and RONNIE, use heparin. If no RONNIE, use Lovenox -Will have to have cardiology followup as an outpatient. (4) Cerebrovascular accident Current Visit: Yes Status: Acute Assessment and plan: Mr. Vizcarra presented with right-sided weakness and fell outside the window for thrombolysis. He recently failed swallow evaluation in emergency department but was seen by speech and was cleared for mechanical soft diet with thin liquids. MRI of the brain demonstrates numerous foci of acute/early subacute infarcts in the supratentorial and infratentorial brain parenchymal bilaterally. Distribution of infarction raises the possibility of thromboembolic phenomenon from the central source. Diffuse parenchymal volume loss and sequelae of moderate to severe chronic microvascular ischemic changes. Echocardiogram performed 11/11/2016 demonstrates technically suboptimal study. Left ventricle ejection fraction was 50% with low normal LV systolic function. Mild concentric left ventricular hypertrophy and indeterminate diastolic function. There was a normal right ventricular size and function and no significant valvular dysfunction. Repeat noncontrast CT exam on 11/14/2016 showed no acute abnormality. Test performed because of acute mental status change Plan: - BRYAN shows atrial thrombus - PT OT evaluation - Neurology following. Full anticoagulation recommended. Patient on Xerelto. -According to imaging, in no acute changes. Qualifiers: CVA mechanism: unspecified Qualified Code(s): I63.9 - Cerebral infarction, unspecified (5) RONNIE (acute kidney injury) Current Visit: Yes Status: Acute Assessment and plan: Likely secondary to urinary retention, patient had normal renal function yesterday. Today, discovered catheter placement in the prostate on CT examination of the abdomen. 900 ml out upon repositioning. Retroperitoneal ultrasound performed on 11/11/2016 demonstrates right kidney measuring 11.1 cm in length and left kidney measuring 11.3 cm in length. Kidney demonstrates normal cortical echogenicity. No evidence of hydronephrosis or intrarenal stones. Right kidney contains a 3.9 cm cyst and a cortical calcification. Left kidney contains several cysts measure up to 3.4 cm. No hydronephrosis. Bilateral renal cysts measuring up to 3.9 cm. Plan: - Continue IV rehydration. Keep sylvester. - Continue monitoring renal function with daily labs. (6) Magnesium deficiency Current Visit: Yes Status: Acute Assessment and plan: Continue 400 mg by mouth magnesium. Recheck magnesium with am labs. (7) Urinary retention Current Visit: Yes Status: Acute Assessment and plan: -See above under RONNIE. -Patient does take home medications for BPH. (8) Parkinson disease Current Visit: No Status: Chronic Assessment and plan: Continue home medications. (9) Cecum mass Current Visit: No Status: Suspected Assessment and plan: -Had suspicion for cecal mass. May need outpatient work-up. Did discuss this finding with the granddaughter, who works in the medical field as a nurse. -She feels that a colonoscopy is not necessary, if a abnormality is found no surgical intervention would be done. She will speak with her family for further workup (10) Wheezing on auscultation Current Visit: Yes Status: Acute Assessment and plan: -Patient has decreased wheezing compared to yesterday. -Repeat CXR shows no acute changes. Patient may have COPD. -CT of the chest performed on 11/14. Plan -Duonebs q4h (11) DVT prophylaxis Current Visit: Yes Status: Acute Assessment and plan: -On Xerelto. If patient unable to swallow, will start Lovenox if no longer in RONNIE. Heparin if an RONNIE. -IPCDs ordered - Subjective Interval history: Patient is doing worse today compared to yesterday. Is less responsive and not following commands. Looks sweaty. Not speaking. Is moving his extremities. - Constitutional Vitals: Temp Pulse Resp BP Pulse Ox 102.1 F H 124 18 183/102 92 L 11/14/16 06:37 11/14/16 06:37 11/14/16 08:51 11/14/16 06:37 11/14/16 08:51 General appearance: Present: A&O X 3. Absent: cooperative, no acute distress, answers questions appropriately - Head Head exam: Present: atraumatic, normocephalic - Eye Eye exam: Present: PERRL, conjuntiva pink, sclera anicteric Pupils: Present: PERRL - Respiratory Respiratory exam: Present: wheezes. Absent: rhonchi - Cardiovascular Cardiovascular exam: Present: RRR, systolic murmur. Absent: diastolic murmur - GI/Abdominal GI/Abdominal exam: Present: no peritoneal signs Additional comments: Large suprapubic mass felt. Possibly the bladder. - exam: Absent: scrotal swelling, testicular tenderness External exam: Absent: ecchymosis, lacerations, lesions Additional comments: Sylvester in place urine in the bag - Neurological Exam Neurological exam: Present: altered. Absent: alert, oriented X3, facial droop - Psychiatric Psychiatric exam: Present: flat affect - Other Additional findings: Patient's mental sinusitis change compared to yesterday. Yesterday patient did follow commands, was speaking. Today patient is not talking and not following commands. Appears to be sweaty. Does not show signs of pain. Internal Medicine: Result - Labs CBC & Chem 7: 11/14/16 08:44 11/14/16 05:33 Labs: Short CBC 11/14/16 Range/Units 08:44 WBC 11.0 D (4.3-11.1) K/mcL Hgb 12.4 L (12.9-16.9) g/dL Hct 37.1 L (37.5-50.1) % Plt Count 154 (140-400) K/mcL Neutrophils # 10.3 H (1.6-8.9) K/mcL BMP 11/14/16 05:33 Sodium 141 Potassium 4.5 Chloride 108 Carbon Dioxide 16 L BUN 23 Creatinine 2.03 H D Glucose 151 H Calcium 8.8 Cardiac Enzymes 11/14/16 Range/Units 08:44 Troponin I 0.25 H* (0-0.03) ng/mL - ABG Interpretation ABG results: PT/INR, D-dimer PT 16.8 Seconds (9.4-12.1) H 11/14/16 08:44 - Impressions Impressions Chest X-Ray 11/13/16 12:10 IMPRESSION: Bibasilar atelectasis, with COPD, though no other acute cardiopulmonary process identified. D/ / Joni Pascual MD / Joni Pascual MD Interpreting Provider: Joni Pascual MD Chest X-Ray 11/14/16 06:51 IMPRESSION: No acute cardiopulmonary disease. D/ / 11/14/2016 08:05:11 Nitin Caballero MD / sarai Interpreting Provider: Nitin Caballero MD - VTE Documentation of Mechanical Device: Intermittent pneumatic compression device
[2016-11-14] MEDS ORDERED: 0.9 % Sodium Chloride 1,000 ML IVC ONE (09:40)
[2016-11-14] MEDS ORDERED: Acetaminophen 650 MG RECTAL SUPP RC ONE ×2 (09:44→16:31)
[2016-11-14 09:52] LABS: C-Reactive Protein 103 mg/L (Less than 5)
[2016-11-14] MEDS ORDERED: Vancomycin 1,250 MG in D5% in Water 250 ML IVPB ONE (10:00)
[2016-11-14 10:40] LABS: Creatine Kinase 24 Units/L (30-200)
[2016-11-14 10:41] LABS: Bilirubin,Urine Negative (Negative); Blood,Urine Large (Negative); Clarity,Urine Cloudy (Clear); Color,Urine Yellow (Yellow); Glucose,Urine (UA) Normal (Normal); Ketones,Urine Negative (Negative); Leukocyte Esterase,Urine Large (Negative); Nitrite,Urine Positive (Negative); Protein,Urine Negative (Neg-Trace); Specific Gravity,Urine 1.008 (1.010-1.025); Urobilinogen,Urine Normal (Normal)
[2016-11-14 10:43] LABS: Bacteria,Urine Few per hpf (None-Few); Hyaline Casts,Urine None Seen per lpf (None-Few); RBC,Urine 50-100 per hpf (0-3); Squamous Epithelial Cell,Urine None Seen per lpf (None-Few); WBC,Urine TNTC per hpf (0-3)
[2016-11-14] MEDS: Piperacillin/Tazobactam 3.375 GM in D5% in Water (Mini-Bag+) 100 ML IVPB SCH ×2 (10:51→21:03)
[2016-11-14] MEDS: Fluticasone Propionate Nasal 50 MCG/SPRAY BOTTLE NS SCH (12:14)
--- NOTE | 2016-11-14 14:23 | Neurology Progress Note ---
<Emiliano Muro - Last Filed: 11/14/16 15:14> Date of Encounter: 11/14/16 Time of Encounter: 14:20 Assessment and Plan (1) Cerebrovascular accident Current Visit: Yes Status: Acute - patient had BRYAN yesterday which showed atrial thrombus - this is the most likely source of his stroke - Started xarelto yesterday for anticoagulation - Will continue to follow, no change in mental status or neurological exam today - Further recommendations pending attending evaluation. Qualifiers: CVA mechanism: unspecified Qualified Code(s): I63.9 - Cerebral infarction, unspecified (2) Altered mental status Current Visit: No Status: Acute Qualifiers: Altered mental status type: transient alteration of awareness Qualified Code(s): R40.4 - Transient alteration of awareness (3) Dementia Current Visit: No Status: Chronic Qualifiers: Dementia type: unspecified type Dementia behavioral disturbance: without behavioral disturbance Qualified Code(s): F03.90 - Unspecified dementia without behavioral disturbance (4) Generalized weakness Current Visit: No Status: Chronic Subjective Principal diagnosis: CVA Interval history: Patient was noted to be febrile and tachycardic this afternoon. After stabilization, it was determined through CT imaging that the patient had a sylvester catheter placed in his prostate and it was repositioned. Upon my evaluation the patient was sleeping but was arousable and states his abdomen feels better now that the catheter has been moved. Is still unable to fully participate in ROS/PE Objective - Constitutional Vitals: Temp Pulse Resp BP Pulse Ox 102.1 F H 124 18 183/102 92 L 11/14/16 06:37 11/14/16 06:37 11/14/16 08:51 11/14/16 06:37 11/14/16 08:51 General appearance: Present: A&O X 0 (Name: "cody", Location: "don't know", Date: "no recognizable words"), cooperative, pleasant, no acute distress. Absent: answers questions appropriately - Neurological Exam Sensorimotor examination: Absent: intact, pronator drift (unable to examine 2/2 weakness) Motor Examination: Absent: grossly full strength in all extremities, full strength in all major muscle groups Motor examination - right side: 1/5: deltoids, biceps, triceps, wrist flexion, wrist extension, insurance agency owner, tibialis Anterior, quadriceps, plantarflexion, 2/5: hip flexors (will slightly withdraw to deep painful stimulation ), toe extension ( EHL) Motor examination - left side: 4/5: deltoids, biceps, triceps, wrist flexion, wrist extension, hip flexors, insurance agency owner, quadriceps, tibialis Anterior, toe extension (EHL), plantarflexion Sensation intact: Present: other (Difficult to assess as quite inconsistent but able to withdraw to deep stimulation in all 4 extremities) Mental Status Examination: Present: awake, alert, oriented to person (but does not know name), opens eyes to voice, opens eyes to noxious stimulation, makes eye contact, follows simple commands, localizes noxious stimulation, expressive aphasia, rambling. Absent: follows commands appropriately (only some commands) Cranial nerve examination: Present: PERRL, EOMI (grossly, patient unable to fully follow commands), visual astorga intact Cranial Nerve Exam: tongue protrudes: Right - VTE Documentation of Mechanical Device: Intermittent pneumatic compression device Results - Laboratory Findings CBC and BMP: 11/14/16 08:44 11/14/16 05:33 Abnormal lab findings: Abnormal lab results RBC 4.04 M/mcL (4.19-5.50) L 11/14/16 08:44 Hgb 12.4 g/dL (12.9-16.9) L 11/14/16 08:44 Hct 37.1 % (37.5-50.1) L 11/14/16 08:44 Neutrophils # 10.3 K/mcL (1.6-8.9) H 11/14/16 08:44 Lymphocytes # 0.3 K/mcL (0.6-4.6) L 11/14/16 08:44 ESR 77 mm/hr (0-10) H 11/14/16 09:32 PT 16.8 Seconds (9.4-12.1) H 11/14/16 08:44 Carbon Dioxide 16 mEq/L (19-29) L 11/14/16 05:33 Creatinine 2.03 mg/dL (0.72-1.25) H D 11/14/16 05:33 Est GFR ( Amer) 38 (> 60) L 11/14/16 05:33 Est GFR (Non-Af Amer) 32 (> 60) L 11/14/16 05:33 Glucose 151 mg/dL (70-99) H 11/14/16 05:33 POC Glucose 148 (58-89) H 11/14/16 05:51 Lactic Acid 2.4 mmol/L (0.5-2.2) H 11/14/16 09:32 Creatine Kinase 24 Units/L (30-200) L 11/14/16 09:32 Troponin I 0.25 ng/mL (0-0.03) H* 11/14/16 08:44 C-Reactive Protein 103 mg/L (Less than 5) H 11/14/16 09:32 Albumin 2.6 g/dL (3.5-5.0) L 11/13/16 05:23 Globulin 3.6 g/dL (2.4-3.5) H 11/13/16 05:23 Albumin/Globulin Ratio 0.7 (1.1-2.2) L 11/13/16 05:23 Triglycerides 150 mg/dL (< 150) H 11/11/16 03:44 HDL Cholesterol 29 mg/dL (40-59) L 11/11/16 03:44 Urine Clarity Cloudy (Clear) A 11/14/16 10:35 Ur Specific [place] 1.008 (1.010-1.025) L 11/14/16 10:35 Urine Blood Large (Negative) H 11/14/16 10:35 Urine Nitrite Positive (Negative) A 11/14/16 10:35 Ur Leukocyte Esterase Large (Negative) H 11/14/16 10:35 Urine Microscopic RBC 50-100 per hpf (0-3) H 11/14/16 10:35 Urine Microscopic WBC TNTC per hpf (0-3) H 11/14/16 10:35 Ur Culture Indicated? YES (NO) A 11/14/16 10:35 Consult Discharge Plan - Plan Referrals: Saloni Isaac, HEMP FIBER TAKER OFF [Primary Care Provider] - <Donn Mark I - Last Filed: 11/14/16 16:28> Date of Encounter: 11/14/16 Assessment and Plan (1) Cerebrovascular accident Current Visit: Yes Status: Acute The results were reviewed shows evidence of thromboses on Xarelto now suggested to continue at the same time he has been having some other issues regularly with low-grade temp suggest to look for other causes of infection particularly possibility of any aspiration pneumonia as well as possibility of any UTI as most commonly associated in this age group and posterior stroke patient. Patient will require long-term rehabilitation due to the fact that he had already significant deficit and on the top of that he did have some baseline dementia as well. Donn Mark MD Qualifiers: CVA mechanism: unspecified Qualified Code(s): I63.9 - Cerebral infarction, unspecified (2) Altered mental status Current Visit: No Status: Acute Qualifiers: Altered mental status type: transient alteration of awareness Qualified Code(s): R40.4 - Transient alteration of awareness (3) Dementia Current Visit: No Status: Chronic Qualifiers: Dementia type: unspecified type Dementia behavioral disturbance: without behavioral disturbance Qualified Code(s): F03.90 - Unspecified dementia without behavioral disturbance (4) Generalized weakness Current Visit: No Status: Chronic Objective - Constitutional Vitals: Temp Pulse Resp BP Pulse Ox 100 F H 91 16 108/67 95 11/14/16 15:18 11/14/16 15:18 11/14/16 15:18 11/14/16 15:18 11/14/16 15:18 Results - Laboratory Findings CBC and BMP: 11/14/16 08:44 11/14/16 05:33 Abnormal lab findings: Abnormal lab results RBC 4.04 M/mcL (4.19-5.50) L 11/14/16 08:44 Hgb 12.4 g/dL (12.9-16.9) L 11/14/16 08:44 Hct 37.1 % (37.5-50.1) L 11/14/16 08:44 Neutrophils # 10.3 K/mcL (1.6-8.9) H 11/14/16 08:44 Lymphocytes # 0.3 K/mcL (0.6-4.6) L 11/14/16 08:44 ESR 77 mm/hr (0-10) H 11/14/16 09:32 PT 16.8 Seconds (9.4-12.1) H 11/14/16 08:44 Carbon Dioxide 16 mEq/L (19-29) L 11/14/16 05:33 Creatinine 2.03 mg/dL (0.72-1.25) H D 11/14/16 05:33 Est GFR ( Amer) 38 (> 60) L 11/14/16 05:33 Est GFR (Non-Af Amer) 32 (> 60) L 11/14/16 05:33 Glucose 151 mg/dL (70-99) H 11/14/16 05:33 POC Glucose 148 (58-89) H 11/14/16 05:51 Lactic Acid 2.4 mmol/L (0.5-2.2) H 11/14/16 09:32 Creatine Kinase 24 Units/L (30-200) L 11/14/16 09:32 Troponin I 0.25 ng/mL (0-0.03) H* 11/14/16 08:44 C-Reactive Protein 103 mg/L (Less than 5) H 11/14/16 09:32 Albumin 2.6 g/dL (3.5-5.0) L 11/13/16 05:23 Globulin 3.6 g/dL (2.4-3.5) H 11/13/16 05:23 Albumin/Globulin Ratio 0.7 (1.1-2.2) L 11/13/16 05:23 Triglycerides 150 mg/dL (< 150) H 11/11/16 03:44 HDL Cholesterol 29 mg/dL (40-59) L 11/11/16 03:44 Urine Clarity Cloudy (Clear) A 11/14/16 10:35 Ur Specific [place] 1.008 (1.010-1.025) L 11/14/16 10:35 Urine Blood Large (Negative) H 11/14/16 10:35 Urine Nitrite Positive (Negative) A 11/14/16 10:35 Ur Leukocyte Esterase Large (Negative) H 11/14/16 10:35 Urine Microscopic RBC 50-100 per hpf (0-3) H 11/14/16 10:35 Urine Microscopic WBC TNTC per hpf (0-3) H 11/14/16 10:35 Ur Culture Indicated? YES (NO) A 11/14/16 10:35
[2016-11-14] MEDS: *HR* Rivaroxaban 15 MG TABLET PO SCH (16:23)
[2016-11-14] MEDS: traZODone 50 MG TABLET PO SCH (21:03)
[2016-11-14 22:02] LABS: Acinetobacter baumannii by PCR Not Detected (Not Detect); Candida albicans by PCR Not Detected (Not Detect); Candida glabrata by PCR Not Detected (Not Detect); Candida krusei by PCR Not Detected (Not Detect); Candida parapsilosis by PCR Not Detected (Not Detect); Candida tropicalis by PCR Not Detected (Not Detect); Enterococcus by PCR Not Detected (Not Detect); Escherichia coli by PCR Not Detected (Not Detect); Klebsiella oxytoca by PCR Not Detected (Not Detect); Klebsiella pneumoniae by PCR Not Detected (Not Detect); Pseudomonas aeruginosa by PCR Not Detected (Not Detect); Serratia marcescens by PCR Not Detected (Not Detect); Staphylococcus aureus by PCR ***DETECTED*** (Not Detect); Streptococcus agalactiae(B)PCR Not Detected (Not Detect); Streptococcus by PCR Not Detected (Not Detect); Streptococcus pneumoniae PCR Not Detected (Not Detect); Streptococcus pyogenes (A) PCR Not Detected (Not Detect)
[2016-11-14 22:05] LABS: mecA Methicillin-Resist Gene ***DETECTED*** (Not Detect)
[2016-11-15] MEDS: Ipratropium/Albuterol Neb 3 ML IH SCH ×6 (00:21→20:28)
[2016-11-15] MEDS: Insulin LISPRO 300 UNITS/3 ML VIAL SQ SCH ×5 (00:21→23:16)
[2016-11-15] MEDS: Acetaminophen 325 MG TABLET PO PRN (00:25)
[2016-11-15] MEDS: 0.9 % Sodium Chloride 1,000 ML IVC SCH ×2 (01:55→11:54)
[2016-11-15 06:01] LABS: Basophils % 0.2 %; Eosinophils % 0.2 %; Hemoglobin 9.1 g/dL (12.9-16.9); Immature Granulocytes % 0.3 % (0-4); Lymphocytes # 0.5 K/mcL (0.6-4.6); Lymphocytes % 7.9 %; Mean Corpuscular HGB Conc 32.5 g/dL (31.6-35.5); Mean Corpuscular Volume 95.2 fL (83.0-100.0); Mean Platelet Volume 10.2 fL (9.4-12.4); Monocytes # 0.3 K/mcL (0.0-1.3); Monocytes % 4.6 %; Neutrophils # 5.7 K/mcL (1.6-8.9); Platelet Count 102 K/mcL (140-400); Red Blood Count 2.94 M/mcL (4.19-5.50); Red Cell Distribution Width 13.9 % (11.5-14.5); Segmented Neutrophils % 86.8 %
[2016-11-15 06:16] LABS: BUN/Creatinine Ratio 16 (6-26); Blood Urea Nitrogen 20 mg/dL (8-26); Calcium 7.8 mg/dL (8.6-10.8); Carbon Dioxide 19 mEq/L (19-29); Chloride 111 mEq/L (98-109); Glucose 125 mg/dL (70-99); Osmolality,Calculated 294 (280-300); Potassium 3.7 mEq/L (3.5-4.5); Sodium 140 mEq/L (136-145); eGFR For African Americans > 60 (> 60); eGFR For Non-African Americans 53 (> 60)
[2016-11-15] MEDS ORDERED: Vancomycin 1,250 MG in D5% in Water 250 ML IVPB ONE (08:30)
--- NOTE | 2016-11-15 10:12 | Internal Med Progress Note ---
<Jose Alberto Martins - Last Filed: 11/15/16 17:29> Date of Encounter: 11/15/16 Time of Encounter: 08:00 - Assessment and plan (1) Thrombus of right atrial appendage Current Visit: Yes Status: Acute Assessment and plan: -BRYAN Reveals Atrial Appendage thrombus on 11/13/16 -Patient started Xerelto 11/13/16. Plan -Continue Xerelto -Consider reevaluation with ECHO. (2) Sepsis Current Visit: Yes Status: Acute Assessment and plan: -Patient has marked improvement today compared to yesterday. Likely source is urinary. -Blood and urine culture gram positive cocci. -On zosyn and vanc. -Sylvester in correct place Plan - Continue Zosyn and Vanc. Because of renal function, Vanc pulse dose per pharmacist. -Urology has been consulted to evaluate prostate. -Continue with rectal Tylenol prn for fever, fluids. Qualifiers: Sepsis type: sepsis due to unspecified organism Qualified Code(s): A41.9 - Sepsis, unspecified organism (3) Cerebrovascular accident Current Visit: Yes Status: Acute Assessment and plan: Mr. Vizcarra presented with right-sided weakness and fell outside the window for thrombolysis. He recently failed swallow evaluation in emergency department but was seen by speech and was cleared for mechanical soft diet with thin liquids. MRI of the brain demonstrates numerous foci of acute/early subacute infarcts in the supratentorial and infratentorial brain parenchymal bilaterally. Distribution of infarction raises the possibility of thromboembolic phenomenon from the central source. Diffuse parenchymal volume loss and sequelae of moderate to severe chronic microvascular ischemic changes. Echocardiogram performed 11/11/2016 demonstrates technically suboptimal study. Left ventricle ejection fraction was 50% with low normal LV systolic function. Mild concentric left ventricular hypertrophy and indeterminate diastolic function. There was a normal right ventricular size and function and no significant valvular dysfunction. Repeat noncontrast CT exam on 11/14/2016 showed no acute abnormality. Test performed because of acute mental status change 11/15 -Patients mental status greatly improved. Plan: - BRYAN shows atrial thrombus - PT OT evaluation - Neurology following. Full anticoagulation recommended. Patient on Xerelto. -According to imaging, no acute changes. Qualifiers: CVA mechanism: unspecified Qualified Code(s): I63.9 - Cerebral infarction, unspecified (4) Code status needs review Current Visit: Yes Status: Acute Assessment and plan: -Greater than 45 minutes pain with the granddaughter discussing CODE STATUS along with her . She feels that heroic measures or further testing such as imaging is not necessary. Feels that antibiotic use and non-invasive measures should be continued. -Discussed with family that current CODE STATUS involves compressions if there is a pulse. Granddaughter states that he would not desire this. Reiterated the fact that I need 's approval before any CODE Status changes can be made. may be able to be present on . -Per [facility], patient currently does not have a POA established, has Parkinson's. Contact information written on the board. (5) RONNIE (acute kidney injury) Current Visit: Yes Status: Acute Assessment and plan: Likely secondary to urinary retention, patient had normal renal function yesterday. Today, discovered catheter placement in the prostate on CT examination of the abdomen. 900 ml out upon repositioning. Retroperitoneal ultrasound performed on 11/11/2016 demonstrates right kidney measuring 11.1 cm in length and left kidney measuring 11.3 cm in length. Kidney demonstrates normal cortical echogenicity. No evidence of hydronephrosis or intrarenal stones. Right kidney contains a 3.9 cm cyst and a cortical calcification. Left kidney contains several cysts measure up to 3.4 cm. No hydronephrosis. Bilateral renal cysts measuring up to 3.9 cm. 11/15 -Renal function improved significantly. Plan: - Continue IV rehydration. Keep sylvester. - Continue monitoring renal function with daily labs. (6) Magnesium deficiency Current Visit: Yes Status: Acute Assessment and plan: Continue 400 mg by mouth magnesium. Recheck magnesium with am labs. (7) Urinary retention Current Visit: Yes Status: Acute Assessment and plan: -See above under RONNIE. -Patient does take home medications for BPH. -Urology consulted (8) Parkinson disease Current Visit: No Status: Chronic Assessment and plan: Continue home medications. (9) Cecum mass Current Visit: No Status: Suspected Assessment and plan: -Had suspicion for cecal mass. May need outpatient work-up. Did discuss this finding with the granddaughter, who works in the medical field as a nurse. -She feels that a colonoscopy is not necessary, if a abnormality is found no surgical intervention would be done. She will speak with her family for further workup (10) Wheezing on auscultation Current Visit: Yes Status: Acute Assessment and plan: -Patient has decreased wheezing compared to yesterday. -Repeat CXR shows no acute changes. Patient may have COPD. -CT of the chest performed on 11/14. Plan -Duonebs q4h (11) DVT prophylaxis Current Visit: Yes Status: Acute Assessment and plan: -On Xerelto. If patient unable to swallow, will start Lovenox if no longer in RONNIE. Heparin if an RONNIE. -IPCDs ordered - Subjective Interval history: Patient has marked improvement. Is speaking, answering questions appropriately, following commands. He still has some confusion. Is tolerating ensure. Not back to baseline. Son is present in the room. - Constitutional Vitals: Temp Pulse Resp BP Pulse Ox 98.2 F 92 16 115/64 97 11/15/16 07:04 11/15/16 07:04 11/15/16 08:23 11/15/16 07:04 11/15/16 08:23 General appearance: Present: A&O X 3. Absent: cooperative, no acute distress, answers questions appropriately - Head Head exam: Present: atraumatic, normocephalic - Eye Eye exam: Present: PERRL, conjuntiva pink, sclera anicteric Pupils: Present: PERRL - Respiratory Respiratory exam: Present: CTAB, wheezes. Absent: accessory muscle use, rhonchi - Cardiovascular Cardiovascular exam: Present: RRR, +S1, +S2. Absent: diastolic murmur, gallop, rubs, systolic murmur - GI/Abdominal GI/Abdominal exam: Present: normal bowel sounds, soft, tenderness (superpubic ) , no peritoneal signs - Additional comments: Sylvseter in place. Yellow/clear urine. - Neurological Exam Neurological exam: Present: alert, altered, oriented X3 Additional comments: Follows commands to squeeze hands. Opens eyes and responds to stimuli. Does not dorsiflex or plantar flex. Internal Medicine: Result - Labs CBC & Chem 7: 11/15/16 05:25 11/15/16 05:25 Labs: Short CBC 11/15/16 Range/Units 05:25 WBC 6.6 (4.3-11.1) K/mcL Hgb 9.1 L D (12.9-16.9) g/dL Hct 28.0 L (37.5-50.1) % Plt Count 102 L (140-400) K/mcL Neutrophils # 5.7 (1.6-8.9) K/mcL BMP 11/15/16 05:25 Sodium 140 Potassium 3.7 Chloride 111 H Carbon Dioxide 19 BUN 20 Creatinine 1.29 H Glucose 125 H Calcium 7.8 L Urine 11/14/16 Range/Units 10:35 Urine Color Yellow (Yellow) Urine Clarity Cloudy A (Clear) Urine pH 6.0 (5.0-8.0) pH Units Ur Specific [place] 1.008 L (1.010-1.025) Urine Protein Negative (Neg-Trace) mg/dL Urine Glucose (UA) Normal (Normal) mg/dL - ABG Interpretation ABG results: PT/INR, D-dimer PT 16.8 Seconds (9.4-12.1) H 11/14/16 08:44 - Impressions Impressions Abdomen/Pelvis CT 11/14/16 09:30 IMPRESSION: Probable at least moderate distension of the urinary bladder and dilation of the renal pelves/ureters suggesting outlet obstruction. A Sylvester catheter is abnormally located, balloon within the prostate gland. Repositioning is recommended. The findings were sent to the Radiology Results Communication [facility] at 10:39 am on 11/14/2016to be communicated to a licensed caregiver. D/ / Nasrin Mahajan Cha, MD / Nasrin Mahajan Cha, MD Interpreting Provider: Nasrin Mahajan Cha, MD Chest CT 11/14/16 09:49 IMPRESSION: Small right pleural effusion as well as dependent mild right middle lobe, right upper lobe and bilateral lower lobe airspace disease, likely atelectasis. Pneumonia cannot be completely excluded. D/ / Nasrin Mahajan Cha, MD / Nasrin Mahajan Cha, MD Interpreting Provider: Nasrin Mahajan Cha, MD Head CT 11/14/16 09:51 IMPRESSION: No acute intracranial abnormality. D/ / Phan Park MD / Phan Park MD Interpreting Provider: Phan Park MD - VTE Documentation of Mechanical Device: Intermittent pneumatic compression device Consult Discharge Plan - Plan Referrals: Saloni Isaac, CIVIL CAD DESIGNER [Primary Care Provider] - <PatWilfredo P - Last Filed: 11/15/16 18:11> Date of Encounter: 11/15/16 - Constitutional Vitals: Temp Pulse Resp BP Pulse Ox 97.5 F L 93 18 116/64 96 11/15/16 16:09 11/15/16 16:09 11/15/16 16:13 11/15/16 16:09 11/15/16 16:13 Internal Medicine: Result - Labs CBC & Chem 7: 11/15/16 05:25 11/15/16 05:25 Labs: Short CBC 11/15/16 Range/Units 05:25 WBC 6.6 (4.3-11.1) K/mcL Hgb 9.1 L D (12.9-16.9) g/dL Hct 28.0 L (37.5-50.1) % Plt Count 102 L (140-400) K/mcL Neutrophils # 5.7 (1.6-8.9) K/mcL BMP 11/15/16 05:25 Sodium 140 Potassium 3.7 Chloride 111 H Carbon Dioxide 19 BUN 20 Creatinine 1.29 H Glucose 125 H Calcium 7.8 L - ABG Interpretation ABG results: PT/INR, D-dimer PT 16.8 Seconds (9.4-12.1) H 11/14/16 08:44 - Attending Attestation I examined this patient and my medical decision-making was reviewed with the QUALITY IMPROVEMENT MANAGER/PA/Advanced Practice Nurse/Resident Physician. I agree with the documented findings, disposition and treatment plan as described except to the extent set forth below.
[2016-11-15] MEDS: Piperacillin/Tazobactam 3.375 GM in D5% in Water (Mini-Bag+) 100 ML IVPB SCH ×2 (11:16→16:24)
[2016-11-15] MEDS: Magnesium Oxide 400 MG TABLET PO SCH ×2 (12:12→20:46)
[2016-11-15] MEDS: Aspirin 81 MG TAB.CHEW PO SCH (12:12)
[2016-11-15] MEDS: Carbidopa/Levodopa 25/100 TABLET PO SCH ×3 (12:13→20:47)
[2016-11-15] MEDS: Multivit/Ca/Min/Fe/FA 1 TAB TABLET PO SCH (12:13)
[2016-11-15] MEDS: Isosorbide MONOnitrate (24 HR) 60 MG TAB.ER.24H PO SCH (12:13)
[2016-11-15] MEDS: Fluticasone Propionate Nasal 50 MCG/SPRAY BOTTLE NS SCH (12:14)
[2016-11-15] MEDS: *HR* Rivaroxaban 15 MG TABLET PO SCH (16:24)
[2016-11-15] MEDS: traZODone 50 MG TABLET PO SCH (20:46)
[2016-11-15] MEDS ORDERED: Insulin LISPRO 300 UNITS/3 ML VIAL SQ SCH (21:00)
[2016-11-16] MEDS: Ipratropium/Albuterol Neb 3 ML IH SCH ×7 (00:28→23:01)
[2016-11-16] MEDS: 0.9 % Sodium Chloride 1,000 ML IVC SCH ×3 (01:14→19:56)
[2016-11-16] MEDS: Piperacillin/Tazobactam 3.375 GM in D5% in Water (Mini-Bag+) 100 ML IVPB SCH ×3 (01:15→17:17)
[2016-11-16] MEDS: Acetaminophen 325 MG TABLET PO PRN (01:16)
[2016-11-16 04:56] LABS: Basophils % 0.4 %; Eosinophils # 0.1 K/mcL (0.0-0.6); Eosinophils % 2.8 %; Hematocrit 25.9 % (37.5-50.1); Hemoglobin 8.5 g/dL (12.9-16.9); Immature Granulocytes % 0.2 % (0-4); Lymphocytes # 0.7 K/mcL (0.6-4.6); Lymphocytes % 14.9 %; Mean Corpuscular HGB Conc 32.8 g/dL (31.6-35.5); Mean Corpuscular Hemoglobin 31.3 pg (28.0-33.3); Mean Corpuscular Volume 95.2 fL (83.0-100.0); Mean Platelet Volume 10.5 fL (9.4-12.4); Monocytes # 0.4 K/mcL (0.0-1.3); Monocytes % 9.2 %; Neutrophils # 3.4 K/mcL (1.6-8.9); Platelet Count 103 K/mcL (140-400); Red Blood Count 2.72 M/mcL (4.19-5.50); Red Cell Distribution Width 14.2 % (11.5-14.5); Segmented Neutrophils % 72.5 %
[2016-11-16 05:14] LABS: BUN/Creatinine Ratio 22 (6-26); Blood Urea Nitrogen 17 mg/dL (8-26); Calcium 7.6 mg/dL (8.6-10.8); Carbon Dioxide 22 mEq/L (19-29); Chloride 109 mEq/L (98-109); Glucose 125 mg/dL (70-99); Osmolality,Calculated 289 (280-300); Potassium 3.3 mEq/L (3.5-4.5); Sodium 138 mEq/L (136-145); eGFR For African Americans > 60 (> 60); eGFR For Non-African Americans > 60 (> 60)
[2016-11-16] MEDS: Insulin LISPRO 300 UNITS/3 ML VIAL SQ SCH ×4 (07:42→17:25)
[2016-11-16] MEDS: Aspirin 81 MG TAB.CHEW PO SCH (09:04)
[2016-11-16] MEDS: Multivit/Ca/Min/Fe/FA 1 TAB TABLET PO SCH (09:05)
[2016-11-16] MEDS: Carbidopa/Levodopa 25/100 TABLET PO SCH ×3 (09:05→19:54)
[2016-11-16] MEDS: Magnesium Oxide 400 MG TABLET PO SCH ×2 (09:05→19:55)
[2016-11-16] MEDS: Isosorbide MONOnitrate (24 HR) 60 MG TAB.ER.24H PO SCH (09:05)
[2016-11-16] MEDS: Vancomycin 1,500 MG in D5% in Water 250 ML IVPB SCH (09:06)
[2016-11-16] MEDS: Fluticasone Propionate Nasal 50 MCG/SPRAY BOTTLE NS SCH (09:06)
--- NOTE | 2016-11-16 09:55 | Internal Med Progress Note ---
<Jose Alberto Martins - Last Filed: 11/16/16 16:44> Date of Encounter: 11/16/16 Time of Encounter: 08:40 - Assessment and plan (1) Thrombus of right atrial appendage Current Visit: Yes Status: Acute Assessment and plan: -BRYAN Reveals Atrial Appendage thrombus on 11/13/16 -Patient started Xerelto 11/13/16. Plan -Continue Xerelto -Consider reevaluation with ECHO. (2) Sepsis Current Visit: Yes Status: Acute Assessment and plan: 11/15 -Patient has marked improvement today compared to yesterday. Likely source is urinary. -Blood and urine culture gram positive cocci. -On zosyn and vanc. -Sylvester in correct place Plan - Continue Zosyn and Vanc. Because of renal function, Vanc pulse dose per pharmacist. -Urology has been consulted to evaluate prostate. -Continue with rectal Tylenol prn for fever, fluids. 11/16 -Positive blood and urine culture. 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 -Social work needed for guidance on discharge facility. -Continue abx Qualifiers: Sepsis type: sepsis due to unspecified organism Qualified Code(s): A41.9 - Sepsis, unspecified organism (3) Cerebrovascular accident Current Visit: Yes Status: Acute Assessment and plan: Mr. Vizcarra presented with right-sided weakness and fell outside the window for thrombolysis. He recently failed swallow evaluation in emergency department but was seen by speech and was cleared for mechanical soft diet with thin liquids. MRI of the brain demonstrates numerous foci of acute/early subacute infarcts in the supratentorial and infratentorial brain parenchymal bilaterally. Distribution of infarction raises the possibility of thromboembolic phenomenon from the central source. Diffuse parenchymal volume loss and sequelae of moderate to severe chronic microvascular ischemic changes. Echocardiogram performed 11/11/2016 demonstrates technically suboptimal study. Left ventricle ejection fraction was 50% with low normal LV systolic function. Mild concentric left ventricular hypertrophy and indeterminate diastolic function. There was a normal right ventricular size and function and no significant valvular dysfunction. Repeat noncontrast CT exam on 11/14/2016 showed no acute abnormality. Test performed because of acute mental status change 11/15 -Patients mental status greatly improved. Plan: - BRYAN shows atrial thrombus - PT OT evaluation - Neurology following. Full anticoagulation recommended. Patient on Xerelto. -According to imaging, no acute changes. 2/2 -Patients mental status improve Plan -Continue current therapy. Qualifiers: CVA mechanism: unspecified Qualified Code(s): I63.9 - Cerebral infarction, unspecified (4) RONNIE (acute kidney injury) Current Visit: Yes Status: Resolved Assessment and plan: Likely secondary to urinary retention, patient had normal renal function yesterday. Today, discovered catheter placement in the prostate on CT examination of the abdomen. 900 ml out upon repositioning. Retroperitoneal ultrasound performed on 11/11/2016 demonstrates right kidney measuring 11.1 cm in length and left kidney measuring 11.3 cm in length. Kidney demonstrates normal cortical echogenicity. No evidence of hydronephrosis or intrarenal stones. Right kidney contains a 3.9 cm cyst and a cortical calcification. Left kidney contains several cysts measure up to 3.4 cm. No hydronephrosis. Bilateral renal cysts measuring up to 3.9 cm. 11/15 -Renal function improved significantly. Plan: - Continue IV rehydration. Keep sylvester. - Continue monitoring renal function with daily labs. 22 -Resolved (5) Code status needs review Current Visit: Yes Status: Acute Assessment and plan: -Greater than 45 minutes pain with the granddaughter discussing CODE STATUS along with her . She feels that heroic measures or further testing such as imaging is not necessary. Feels that antibiotic use and non-invasive measures should be continued. -Discussed with family that current CODE STATUS involves compressions if there is a pulse. Granddaughter states that he would not desire this. Reiterated the fact that I need 's approval before any CODE Status changes can be made. may be able to be present on . -Per [facility], patient currently does not have a POA established, has Parkinson's. Contact information written on the board. (6) Magnesium deficiency Current Visit: Yes Status: Acute (7) Urinary retention Current Visit: Yes Status: Acute (8) Parkinson disease Current Visit: No Status: Chronic (9) Cecum mass Current Visit: No Status: Suspected (10) Wheezing on auscultation Current Visit: Yes Status: Acute Assessment and plan: -Patient has decreased wheezing compared to yesterday. -Repeat CXR shows no acute changes. Patient may have COPD. -CT of the chest performed on 11/14. Plan -Duonebs q4h (11) DVT prophylaxis Current Visit: Yes Status: Acute Assessment and plan: -On Xerelto. If patient unable to swallow, will start Lovenox if no longer in RONNIE. Heparin if an RONNIE. -IPCDs ordered - Subjective Interval history: Patient has marked improvement. Is speaking, answering questions appropriately, following commands. Tolerated his diet. Not back to baseline. Friend is present in the room. Admits to mild abdominal pain as diffuse. Nothing seems to make it better or worse. Patient appears comfortable. - Constitutional Vitals: Temp Pulse Resp BP Pulse Ox 97.3 F L 84 18 154/81 98 11/16/16 07:00 11/16/16 07:00 11/16/16 08:21 11/16/16 07:00 11/16/16 09:47 General appearance: Present: A&O X 3. Absent: cooperative, no acute distress, answers questions appropriately - Head Head exam: Present: atraumatic, normocephalic - Eye Eye exam: Present: PERRL, conjuntiva pink, sclera anicteric Pupils: Present: PERRL - Respiratory Respiratory exam: Present: wheezes - Cardiovascular Cardiovascular exam: Present: RRR, systolic murmur - GI/Abdominal GI/Abdominal exam: Present: normal bowel sounds, soft, no peritoneal signs. Absent: distended, tenderness (Did not appreciate when palpating. ) - Psychiatric Psychiatric exam: Present: normal affect, normal mood - Other Additional findings: -R arm weakness compared to L -Normal speech. Moves legs. Internal Medicine: Result - Labs CBC & Chem 7: 11/16/16 04:08 11/16/16 04:08 Labs: Short CBC 11/16/16 Range/Units 04:08 WBC 4.7 (4.3-11.1) K/mcL Hgb 8.5 L (12.9-16.9) g/dL Hct 25.9 L (37.5-50.1) % Plt Count 103 L (140-400) K/mcL Neutrophils # 3.4 (1.6-8.9) K/mcL BMP 11/16/16 04:08 Sodium 138 Potassium 3.3 L Chloride 109 Carbon Dioxide 22 BUN 17 Creatinine 0.78 Glucose 125 H Calcium 7.6 L - ABG Interpretation ABG results: PT/INR, D-dimer PT 16.8 Seconds (9.4-12.1) H 11/14/16 08:44 - VTE Documentation of Mechanical Device: Intermittent pneumatic compression device Consult Discharge Plan - Plan Referrals: Saloni Isaac, RIVET THROWER [Primary Care Provider] - <Wilfredo Stewart - Last Filed: 11/16/16 18:16> Date of Encounter: 11/16/16 - Constitutional Vitals: Temp Pulse Resp BP Pulse Ox 96.9 F L 80 18 143/84 94 L 11/16/16 10:52 11/16/16 15:59 11/16/16 16:51 11/16/16 15:59 11/16/16 16:51 Internal Medicine: Result - Labs CBC & Chem 7: 11/16/16 04:08 11/16/16 04:08 Labs: Short CBC 11/16/16 Range/Units 04:08 WBC 4.7 (4.3-11.1) K/mcL Hgb 8.5 L (12.9-16.9) g/dL Hct 25.9 L (37.5-50.1) % Plt Count 103 L (140-400) K/mcL Neutrophils # 3.4 (1.6-8.9) K/mcL BMP 11/16/16 04:08 Sodium 138 Potassium 3.3 L Chloride 109 Carbon Dioxide 22 BUN 17 Creatinine 0.78 Glucose 125 H Calcium 7.6 L - ABG Interpretation ABG results: PT/INR, D-dimer PT 16.8 Seconds (9.4-12.1) H 11/14/16 08:44 - Attending Attestation I examined this patient and my medical decision-making was reviewed with the POST DOCTORAL FELLOW/PA/Advanced Practice Nurse/Resident Physician. I agree with the documented findings, disposition and treatment plan as described except to the extent set forth below. MRSA bacteremia, URine MRSA ECHO done : left atrial thrombus Repeat cultures drawn on Vanco ( day 2) will get ID tomorrow
--- NOTE | 2016-11-16 16:06 | Urology - Consult Note ---
Date of Encounter: 11/16/16 Time of Encounter: 16:04 - Assessment and Plan (1) Urinary retention Current Visit: Yes Status: Acute Assessment and plan: Patient has a very large prostate on CT scan. Recommend to continue Lopez catheter this time. We will have patient scheduled for follow-up in 2-3 weeks for possible voiding trial. Patient is currently maxed out on Flomax. Urology CN:HPI Consult date: 11/16/16 Reason for consult Urology: Other (urinary retention) Requesting physician: Jose Alberto Martins History of present illness: Bello is a 81-year-old male admitted for weakness. Patient had a Lopez catheter placed which on follow-up CT scan revealed the catheter balloon within the prostate. This was repositioned. Patient is currently asleep and poorly arouses. Past Med Surg Social Fam HX - Past Medical History Medical history: coronary artery disease, CVA, dementia, diabetes, hypertension , myocardial infarction, other Psychiatric history: anxiety, depression - Past Surgical History Surgical History: orthopedic, other - Social History Smoking Status: Former smoker Smokeless Tobacco Status: Yes (Chews) Alcohol use: none Drug use: none - Family History Father Adopted: No Living Status: Hx Family Cardiac Disorders: Yes Hx Family Neurologic Disorders: Yes (strokes) Mother Adopted: [place]: [place] Family Member Ethnicity: Non- Living Status: Hx Family Cardiac Disorders: Yes Medications and Allergies Carbidopa/Levodopa 25/100 [Sinemet 25/100] 0.5 tab PO TID 07/12/15 [History] Citalopram [CeleXA] 20 mg PO QAM 07/12/15 [History] Trazodone HCl [TraZODone] 100 mg PO HS 07/12/15 [History] Omeprazole [PriLOSEC] 20 mg PO QAM 10/19/15 [History] Isosorbide MONOnitrate (24 HR) [Imdur] 60 mg PO DAILY #30 tab.er.24h 01/28/16 [ Rx] Fluticasone Propionate Nasal [Flonase] 50 mcg NS DAILY 06/23/16 [History] Metoprolol [Lopressor] 25 mg PO DAILY 06/23/16 [History] Multivitamin [Multi-Day Vitamins] 1 tab PO DAILY 06/23/16 [History] Docusate [Colace] 100 mg PO BID #30 capsule 10/24/16 [Rx] Aspirin Enteric Coated [Aspirin EC] 81 mg PO DAILY tablet. 10/30/16 [Rx] Acetaminophen w/Cod 300-30 mg [Tylenol w/Codeine #3] 1 tab PO QID PRN 11/10/16 [ History] Alprazolam [Xanax 0.25 MG Tablet] 0.25 mg PO BID PRN 11/10/16 [History] Alprazolam [Xanax 0.5 MG Tablet] 0.5 mg PO BID PRN 11/10/16 [History] Phenyleph/Pramoxin/Glycr/W.pet [Preparation H Cream] 1 appl RC Q4H PRN 11/10/16 [History] Potassium Chloride 20 meq PO BID 11/10/16 [History] Tamsulosin [Flomax] 0.8 mg PO HS 11/10/16 [History] Allergies acetaminophen [From Percocet] Adverse Reaction (Verified 10/19/16 16:45) Confusion codeine Adverse Reaction (Verified 10/19/16 16:45) Confusion morphine Adverse Reaction (Verified 10/19/16 16:45) Confusion Oxycodone [From Percocet] Adverse Reaction (Verified 10/19/16 16:45) Confusion Review of Systems ROS unobtainable: due to mental status Exam Initial Vital Signs Temp Pulse Resp BP Pulse Ox 97.9 F 87 20 169/103 93 L 11/10/16 17:58 11/10/16 17:58 11/10/16 17:58 11/10/16 17:58 11/10/16 17:58 - General physical appearance Present: well developed - ENT Present: normal nares - Neck Present: no masses - Respiratory Present: normal respiratory effort - Abdomen Abdomen: Present: soft - Genitourinary other (clear urine in tubing) Urology Results - Labs 11/16/16 04:08 11/16/16 04:08 Abnormal lab results RBC 2.72 M/mcL (4.19-5.50) L 11/16/16 04:08 Hgb 8.5 g/dL (12.9-16.9) L 11/16/16 04:08 Hct 25.9 % (37.5-50.1) L 11/16/16 04:08 Plt Count 103 K/mcL (140-400) L 11/16/16 04:08 ESR 77 mm/hr (0-10) H 11/14/16 09:32 PT 16.8 Seconds (9.4-12.1) H 11/14/16 08:44 Potassium 3.3 mEq/L (3.5-4.5) L 11/16/16 04:08 Glucose 125 mg/dL (70-99) H 11/16/16 04:08 POC Glucose 169 (58-89) H 11/14/16 17:24 Lactic Acid 2.4 mmol/L (0.5-2.2) H 11/14/16 09:32 Calcium 7.6 mg/dL (8.6-10.8) L 11/16/16 04:08 Creatine Kinase 24 Units/L (30-200) L 11/14/16 09:32 Troponin I 0.25 ng/mL (0-0.03) H* 11/14/16 08:44 C-Reactive Protein 103 mg/L (Less than 5) H 11/14/16 09:32 Albumin 2.6 g/dL (3.5-5.0) L 11/13/16 05:23 Globulin 3.6 g/dL (2.4-3.5) H 11/13/16 05:23 Albumin/Globulin Ratio 0.7 (1.1-2.2) L 11/13/16 05:23 Triglycerides 150 mg/dL (< 150) H 11/11/16 03:44 HDL Cholesterol 29 mg/dL (40-59) L 11/11/16 03:44 Urine Clarity Cloudy (Clear) A 11/14/16 10:35 Ur Specific [place] 1.008 (1.010-1.025) L 11/14/16 10:35 Urine Blood Large (Negative) H 11/14/16 10:35 Urine Nitrite Positive (Negative) A 11/14/16 10:35 Ur Leukocyte Esterase Large (Negative) H 11/14/16 10:35 Urine Microscopic RBC 50-100 per hpf (0-3) H 11/14/16 10:35 Urine Microscopic WBC TNTC per hpf (0-3) H 11/14/16 10:35 Ur Culture Indicated? YES (NO) A 11/14/16 10:35 Vancomycin Trough 7.9 mcg/mL (10-20) L 11/15/16 05:25 Staphylococcus sp PCR DETECTED (Not Detect) A 11/14/16 09:32 Staph aureus (PCR) DETECTED (Not Detect) A 11/14/16 09:32 MRS (TEM-PCR) DETECTED (Not Detect) A 11/14/16 09:32 Diabetes panel 11/16/16 Range/Units 04:08 Sodium 138 (136-145) mEq/L Potassium 3.3 L (3.5-4.5) mEq/L Chloride 109 (98-109) mEq/L Carbon Dioxide 22 (19-29) mEq/L BUN 17 (8-26) mg/dL Creatinine 0.78 (0.72-1.25) mg/dL Glucose 125 H (70-99) mg/dL Calcium 7.6 L (8.6-10.8) mg/dL Calcium panel 11/16/16 Range/Units 04:08 Calcium 7.6 L (8.6-10.8) mg/dL Pituitary panel 11/16/16 Range/Units 04:08 Sodium 138 (136-145) mEq/L Potassium 3.3 L (3.5-4.5) mEq/L Chloride 109 (98-109) mEq/L Carbon Dioxide 22 (19-29) mEq/L BUN 17 (8-26) mg/dL Creatinine 0.78 (0.72-1.25) mg/dL Glucose 125 H (70-99) mg/dL Calcium 7.6 L (8.6-10.8) mg/dL Adrenal panel 11/16/16 Range/Units 04:08 Sodium 138 (136-145) mEq/L Potassium 3.3 L (3.5-4.5) mEq/L Chloride 109 (98-109) mEq/L Carbon Dioxide 22 (19-29) mEq/L BUN 17 (8-26) mg/dL Creatinine 0.78 (0.72-1.25) mg/dL Glucose 125 H (70-99) mg/dL Calcium 7.6 L (8.6-10.8) mg/dL All other labs normal. Consult Discharge Plan - Plan Referrals: Saloni Isaac, SANDIE [Primary Care Provider] -
[2016-11-16] MEDS ORDERED: Potassium Chloride Elixir 20 MEQ/15 ML UDC PO ONE ×3 (16:54→23:57)
[2016-11-16] MEDS: *HR* Rivaroxaban 10 MG TABLET PO SCH (17:16)
[2016-11-16] MEDS: traZODone 50 MG TABLET PO SCH (19:55)
[2016-11-16 21:59] LABS: VBG HCO3 27.3 mEq/L (21-27); VBG PH 7.4 pH Units (7.32-7.42)
[2016-11-16 22:06] LABS: Ionized Calcium 1.11 mmol/L (1.15-1.35)
[2016-11-16 22:12] LABS: BUN/Creatinine Ratio 16 (6-26); Blood Urea Nitrogen 12 mg/dL (8-26); Calcium 7.7 mg/dL (8.6-10.8); Carbon Dioxide 22 mEq/L (19-29); Chloride 110 mEq/L (98-109); Glucose 122 mg/dL (70-99); Magnesium 1.2 mg/dL (1.6-2.6); Osmolality,Calculated 293 (280-300); Phosphorous 2.3 mg/dL (2.3-4.7); Potassium 3.4 mEq/L (3.5-4.5); Sodium 141 mEq/L (136-145); eGFR For African Americans > 60 (> 60); eGFR For Non-African Americans > 60 (> 60)
[2016-11-17] MEDS ORDERED: Magnesium Sulfate 2 GM in D5% in Water 100 ML IVPB STA (00:02)
[2016-11-17] MEDS ORDERED: Calcium Gluconate 1,000 MG in D5% in Water 100 ML IVPB ONE (00:03)
[2016-11-17] MEDS: Insulin LISPRO 300 UNITS/3 ML VIAL SQ SCH ×5 (00:09→20:59)
[2016-11-17] MEDS: Piperacillin/Tazobactam 3.375 GM in D5% in Water (Mini-Bag+) 100 ML IVPB SCH ×2 (01:20→09:47)
[2016-11-17] MEDS: Ipratropium/Albuterol Neb 3 ML IH SCH ×5 (03:27→19:41)
[2016-11-17 05:22] LABS: Basophils % 0.2 %; Eosinophils # 0.1 K/mcL (0.0-0.6); Eosinophils % 2.9 %; Hemoglobin 9.3 g/dL (12.9-16.9); Immature Granulocytes % 0.2 % (0-4); Lymphocytes # 0.8 K/mcL (0.6-4.6); Lymphocytes % 18.8 %; Mean Corpuscular HGB Conc 33.2 g/dL (31.6-35.5); Mean Corpuscular Hemoglobin 31.1 pg (28.0-33.3); Mean Corpuscular Volume 93.6 fL (83.0-100.0); Mean Platelet Volume 10.3 fL (9.4-12.4); Monocytes # 0.4 K/mcL (0.0-1.3); Monocytes % 8.8 %; Neutrophils # 2.9 K/mcL (1.6-8.9); Platelet Count 123 K/mcL (140-400); Red Blood Count 2.99 M/mcL (4.19-5.50); Red Cell Distribution Width 13.8 % (11.5-14.5); Segmented Neutrophils % 69.1 %
[2016-11-17 05:39] LABS: Albumin 2.1 g/dL (3.5-5.0); BUN/Creatinine Ratio 12 (6-26); Blood Urea Nitrogen 9 mg/dL (8-26); Calcium 7.9 mg/dL (8.6-10.8); Carbon Dioxide 24 mEq/L (19-29); Chloride 108 mEq/L (98-109); Glucose 138 mg/dL (70-99); Magnesium 1.6 mg/dL (1.6-2.6); Osmolality,Calculated 289 (280-300); Potassium 3.7 mEq/L (3.5-4.5); Sodium 139 mEq/L (136-145); eGFR For African Americans > 60 (> 60); eGFR For Non-African Americans > 60 (> 60)
[2016-11-17] MEDS: 0.9 % Sodium Chloride 1,000 ML IVC SCH (05:56)
[2016-11-17] MEDS: Fluticasone Propionate Nasal 50 MCG/SPRAY BOTTLE NS SCH (09:49)
[2016-11-17] MEDS: Magnesium Oxide 400 MG TABLET PO SCH ×2 (09:49→20:57)
[2016-11-17] MEDS: Aspirin 81 MG TAB.CHEW PO SCH (09:49)
[2016-11-17] MEDS: Carbidopa/Levodopa 25/100 TABLET PO SCH ×3 (09:49→20:56)
[2016-11-17] MEDS: Isosorbide MONOnitrate (24 HR) 60 MG TAB.ER.24H PO SCH (09:49)
[2016-11-17] MEDS: Multivit/Ca/Min/Fe/FA 1 TAB TABLET PO SCH (09:49)
[2016-11-17] MEDS ORDERED: Lidocaine -MPF 1% 5 ML AMPUL INFILT ONE (13:11)
[2016-11-17] MEDS: Vancomycin 1,500 MG in D5% in Water 250 ML IVPB SCH ×2 (13:51→14:15)
--- NOTE | 2016-11-17 14:50 | Electrocardiograph Report ---
[place] [id number] Test Date: 2016-11-16 Pat Name: Bello Vizcarra Department: 111 Room: [facility] Gender: M Wildlife [employer] Specialist: : [id number] Requested By: Segundo Shah Order Number: [id number] Reading MD: Margie Emerson Measurements Intervals [place] Rate: 92 P: 17 WI: 173 QRS: -50 QRSD: 140 T: 31 QT: 425 QTc: 475 Interpretive Statements SINUS RHYTHM WITH FREQUENT ECTOPIC PREMATURE COMPLEXES INTRAVENTRICULAR CONDUCTION DELAY Electronically Signed On 11-17-2016 14:48:35 EST by Margie Emerson
--- NOTE | 2016-11-17 15:52 | Internal Med Progress Note ---
<Jose Alberto Martins - Last Filed: 11/17/16 15:35> Date of Encounter: 11/17/16 Time of Encounter: 08:15 - Assessment and plan (1) Electrolyte and fluid disorder Current Visit: Yes Status: Acute Assessment and plan: -Patient fluid overloaded. Fluids stopped. However, still recieving abx and replacement of electrolytes as needed. -Hypocalcemia, hypoalbuminimia. I feel like these lab values will improve once patient is not fluid overloaded. Patient is not hypotensive. -Considered starting Lasix to remove fluid. However, low Ca. Will redraw and evaluate Plan -Start Lasix if Ca improves. -Stop fluids. -Do not replace albumin at this time unless patient BP <90/60 (2) Thrombus of right atrial appendage Current Visit: Yes Status: Acute Assessment and plan: -BRYAN Reveals Atrial Appendage thrombus on 11/13/16 -Patient started Xerelto 11/13/16. Plan -Continue Xerelto -Consider reevaluation with ECHO. 11/17/16 -Continue with plan above (3) Sepsis Current Visit: Yes Status: Acute Assessment and plan: 11/15 -Patient has marked improvement today compared to yesterday. Likely source is urinary. -Blood and urine culture gram positive cocci. -On zosyn and vanc. -Sylvester in correct place Plan - Continue Zosyn and Vanc. Because of renal function, Vanc pulse dose per pharmacist. -Urology has been consulted to evaluate prostate. -Continue with rectal Tylenol prn for fever, fluids. 2 -Positive blood and urine culture. -Patient on vancomycin and Zosyn -Improving clinically Plan -Consult infectious disease: intermediate accountant abx therapy choice, picc line placement. -Social work needed for guidance on discharge facility. -Continue abx 11/17/16 -Infectious disease consulted. Not available. -Repeat blood culture negative. PICC line ordered -Sensitivity to vanc. Plan -PICC line placed in L arm. -COnt Vanc, zosyn stopped. Qualifiers: Sepsis type: sepsis due to unspecified organism Qualified Code(s): A41.9 - Sepsis, unspecified organism (4) Cerebrovascular accident Current Visit: Yes Status: Acute Assessment and plan: Mr. Vizcarra presented with right-sided weakness and fell outside the window for thrombolysis. He recently failed swallow evaluation in emergency department but was seen by speech and was cleared for mechanical soft diet with thin liquids. MRI of the brain demonstrates numerous foci of acute/early subacute infarcts in the supratentorial and infratentorial brain parenchymal bilaterally. Distribution of infarction raises the possibility of thromboembolic phenomenon from the central source. Diffuse parenchymal volume loss and sequelae of moderate to severe chronic microvascular ischemic changes. Echocardiogram performed 11/11/2016 demonstrates technically suboptimal study. Left ventricle ejection fraction was 50% with low normal LV systolic function. Mild concentric left ventricular hypertrophy and indeterminate diastolic function. There was a normal right ventricular size and function and no significant valvular dysfunction. Repeat noncontrast CT exam on 11/14/2016 showed no acute abnormality. Test performed because of acute mental status change 2/ -Patients mental status greatly improved. Plan: - BRYAN shows atrial thrombus - PT OT evaluation - Neurology following. Full anticoagulation recommended. Patient on Xerelto. -According to imaging, no acute changes. 2/2 -Patients mental status improve Plan -Continue current therapy. 11/17/16 -Patient feels better. Plan -Continue current therapy Qualifiers: CVA mechanism: unspecified Qualified Code(s): I63.9 - Cerebral infarction, unspecified (5) RONNIE (acute kidney injury) Current Visit: Yes Status: Resolved Assessment and plan: Likely secondary to urinary retention, patient had normal renal function yesterday. Today, discovered catheter placement in the prostate on CT examination of the abdomen. 900 ml out upon repositioning. Retroperitoneal ultrasound performed on 11/11/2016 demonstrates right kidney measuring 11.1 cm in length and left kidney measuring 11.3 cm in length. Kidney demonstrates normal cortical echogenicity. No evidence of hydronephrosis or intrarenal stones. Right kidney contains a 3.9 cm cyst and a cortical calcification. Left kidney contains several cysts measure up to 3.4 cm. No hydronephrosis. Bilateral renal cysts measuring up to 3.9 cm. 11/15 -Renal function improved significantly. Plan: - Continue IV rehydration. Keep sylvester. - Continue monitoring renal function with daily labs. 11/16 -Resolved -Seen by urology. Appointment schedule in next 2-3 weeks for possible voiding trial. 11/17/16 -Resolved. (6) Urinary retention Current Visit: Yes Status: Acute Assessment and plan: -See above under RONNIE. -Patient does take home medications for BPH. -Urology consulted (7) Parkinson disease Current Visit: No Status: Chronic Assessment and plan: Continue home medications. (8) DVT prophylaxis Current Visit: Yes Status: Acute Assessment and plan: -On Xerelto. -IPCDs ordered - Subjective Interval history: Patient has marked improvement. Is speaking, answering questions appropriately, following commands. Tolerated his diet. Not back to baseline. Friend is present in the room. Admits to mild abdominal pain as diffuse. Nothing seems to make it better or worse. Patient appears comfortable. 11/17/16 -Patient feeling better today. Denies abdominal pain, headache, N/V. Admits to a productive cough. Answers questions appropriately. Does not want to eat even though he can. Progressing back to baseline. In the afternoon, patient had one episode of vomiting. Reassessed patient. He does not know why he vomited. Not complaining of abdominal pain, nausea, headache, confusion. Is resting comfortably. Noticed patient hypotensive on monitor. Rechecked and found to be WNL. - Constitutional Vitals: Temp Pulse Resp BP Pulse Ox 98.4 F 82 16 160/92 94 L 11/17/16 07:00 11/17/16 07:00 11/17/16 07:00 11/17/16 07:00 11/17/16 08:00 General appearance: Present: A&O X 3. Absent: cooperative, no acute distress, answers questions appropriately - Head Head exam: Present: atraumatic, normocephalic - Eye Eye exam: Present: PERRL, conjuntiva pink, sclera anicteric Pupils: Present: PERRL - Neck Neck exam general surgery: Present: supple, trachea midline. Absent: lymphadenopathy - Respiratory Respiratory exam: Present: rhonchi, wheezes - Cardiovascular Cardiovascular exam: Present: RRR, +S1, +S2. Absent: diastolic murmur, gallop, rubs - GI/Abdominal GI/Abdominal exam: Present: normal bowel sounds, soft, no peritoneal signs. Absent: distended, tenderness - Extremities Exam Extremities exam: Present: warm, radial pulses palpable and symetrical. Absent : calf tenderness, cyanotic, pedal edema Additional comments: Mild pitting edema. R arm flaccid, able to ice cream maker. Edema. elevated on pillow - Neurological Exam Neurological exam: Present: CN II-XII intact, oriented X3, no focal deficits. Absent: pronater drift, facial droop, speech deficit - Skin Skin exam: Present: dry, intact Internal Medicine: Result - Labs CBC & Chem 7: 11/17/16 04:47 11/17/16 04:47 Labs: Short CBC 11/17/16 Range/Units 04:47 WBC 4.2 L (4.3-11.1) K/mcL Hgb 9.3 L (12.9-16.9) g/dL Hct 28.0 L (37.5-50.1) % Plt Count 123 L (140-400) K/mcL Neutrophils # 2.9 (1.6-8.9) K/mcL BMP 11/16/16 11/17/16 21:42 04:47 Sodium 141 139 Potassium 3.4 L 3.7 Chloride 110 H 108 Carbon Dioxide 22 24 BUN 12 9 Creatinine 0.77 0.75 Glucose 122 H 138 H Calcium 7.7 L 7.9 L Liver Function 11/17/16 Range/Units 04:47 Albumin 2.1 L (3.5-5.0) g/dL - ABG Interpretation ABG results: PT/INR, D-dimer PT 16.8 Seconds (9.4-12.1) H 11/14/16 08:44 - VTE Documentation of Mechanical Device: Intermittent pneumatic compression device Consult Discharge Plan - Plan Referrals: Saloni Isaac DERRICK OPERATOR [Primary Care Provider] - <Wilfredo Stewart - Last Filed: 11/17/16 18:32> Date of Encounter: 11/17/16 - Constitutional Vitals: Temp Pulse Resp BP Pulse Ox 97.4 F L 76 18 166/93 94 L 11/17/16 15:00 11/17/16 15:00 11/17/16 16:13 11/17/16 15:00 11/17/16 16:13 Internal Medicine: Result - Labs CBC & Chem 7: 11/17/16 04:47 11/17/16 04:47 Labs: Short CBC 11/17/16 Range/Units 04:47 WBC 4.2 L (4.3-11.1) K/mcL Hgb 9.3 L (12.9-16.9) g/dL Hct 28.0 L (37.5-50.1) % Plt Count 123 L (140-400) K/mcL Neutrophils # 2.9 (1.6-8.9) K/mcL BMP 11/16/16 11/17/16 11/17/16 21:42 04:47 16:30 Sodium 141 139 Potassium 3.4 L 3.7 Chloride 110 H 108 Carbon Dioxide 22 24 BUN 12 9 Creatinine 0.77 0.75 Glucose 122 H 138 H Calcium 7.7 L 7.9 L 7.9 L Liver Function 11/17/16 Range/Units 04:47 Albumin 2.1 L (3.5-5.0) g/dL - ABG Interpretation ABG results: PT/INR, D-dimer PT 16.8 Seconds (9.4-12.1) H 11/14/16 08:44 - Attending Attestation I examined this patient and my medical decision-making was reviewed with the CRANE ENGINEER/PA/Advanced Practice Nurse/Resident Physician. I agree with the documented findings, disposition and treatment plan as described except to the extent set forth below.
[2016-11-17 16:51] LABS: Ionized Calcium 1.13 mmol/L (1.15-1.35)
[2016-11-17 16:52] LABS: Calcium 7.9 mg/dL (8.6-10.8)
[2016-11-17] MEDS: *HR* Rivaroxaban 10 MG TABLET PO SCH (17:10)
[2016-11-17] MEDS: traZODone 50 MG TABLET PO SCH (20:57)
[2016-11-18] MEDS: Ipratropium/Albuterol Neb 3 ML IH SCH ×6 (02:25→20:25)
[2016-11-18 05:11] LABS: Basophils % 0.5 %; Eosinophils # 0.2 K/mcL (0.0-0.6); Eosinophils % 4.9 %; Hematocrit 28.9 % (37.5-50.1); Hemoglobin 9.8 g/dL (12.9-16.9); Immature Granulocytes % 0.2 % (0-4); Lymphocytes # 1.1 K/mcL (0.6-4.6); Lymphocytes % 24.9 %; Mean Corpuscular HGB Conc 33.9 g/dL (31.6-35.5); Mean Corpuscular Hemoglobin 31.2 pg (28.0-33.3); Mean Platelet Volume 9.6 fL (9.4-12.4); Monocytes # 0.4 K/mcL (0.0-1.3); Monocytes % 8.7 %; Neutrophils # 2.6 K/mcL (1.6-8.9); Platelet Count 132 K/mcL (140-400); Red Blood Count 3.14 M/mcL (4.19-5.50); Red Cell Distribution Width 13.4 % (11.5-14.5); Segmented Neutrophils % 60.8 %
[2016-11-18 05:24] LABS: BUN/Creatinine Ratio 9 (6-26); Blood Urea Nitrogen 6 mg/dL (8-26); Calcium 8.1 mg/dL (8.6-10.8); Carbon Dioxide 25 mEq/L (19-29); Chloride 106 mEq/L (98-109); Glucose 88 mg/dL (70-99); Osmolality,Calculated 285 (280-300); Potassium 3.3 mEq/L (3.5-4.5); Sodium 139 mEq/L (136-145); eGFR For African Americans > 60 (> 60); eGFR For Non-African Americans > 60 (> 60)
[2016-11-18] MEDS: Insulin LISPRO 300 UNITS/3 ML VIAL SQ SCH ×4 (11:19→22:38)
[2016-11-18] MEDS: Isosorbide MONOnitrate (24 HR) 60 MG TAB.ER.24H PO SCH (11:22)
[2016-11-18] MEDS: Aspirin 81 MG TAB.CHEW PO SCH (11:23)
[2016-11-18] MEDS: Carbidopa/Levodopa 25/100 TABLET PO SCH ×3 (11:23→22:32)
[2016-11-18] MEDS: Multivit/Ca/Min/Fe/FA 1 TAB TABLET PO SCH (11:23)
[2016-11-18] MEDS: Magnesium Oxide 400 MG TABLET PO SCH ×2 (11:23→22:32)
[2016-11-18] MEDS: Fluticasone Propionate Nasal 50 MCG/SPRAY BOTTLE NS SCH (11:23)
[2016-11-18] MEDS: Vancomycin 1,500 MG in D5% in Water 250 ML IVPB SCH (13:55)
[2016-11-18] MEDS: *HR* Rivaroxaban 10 MG TABLET PO SCH (17:23)
--- NOTE | 2016-11-18 17:23 | Internal Med Progress Note ---
Date of Encounter: 11/18/16 Time of Encounter: 17:21 - Assessment and plan (1) Electrolyte and fluid disorder Current Visit: Yes Status: Acute Assessment and plan: -Patient fluid overloaded. Fluids stopped. However, still recieving abx and replacement of electrolytes as needed. -Hypocalcemia, hypoalbuminimia. I feel like these lab values will improve once patient is not fluid overloaded. Patient is not hypotensive. -Considered starting Lasix to remove fluid. However, low Ca. Will redraw and evaluate Plan -Start Lasix if Ca improves. -Stop fluids. -Do not replace albumin at this time unless patient BP <90/60 11/18/2016 responded well to lasix now blood pressure is 152/75 will continue lasix for 1 more day close observation. (2) Thrombus of left atrial appendage Current Visit: Yes Status: Acute Assessment and plan: -BRYAN Reveals Atrial Appendage thrombus on 11/13/16 -Patient started Xerelto 11/13/16. Plan -Continue Xerelto (3) Sepsis Current Visit: Yes Status: Acute Assessment and plan: 11/15 -Patient has marked improvement today compared to yesterday. Likely source is urinary. -Blood and urine culture gram positive cocci. -On zosyn and vanc. -Lopez in correct place Plan - Continue Zosyn and Vanc. Because of renal function, Vanc pulse dose per pharmacist. -Urology has been consulted to evaluate prostate. -Continue with rectal Tylenol prn for fever, fluids. 11/16 -Positive blood and urine culture. -Patient on vancomycin and Zosyn -Improving clinically Plan -Consult infectious disease: [facility] abx therapy choice, picc line placement. -Social work needed for guidance on discharge facility. -Continue abx 11/17/16 -Infectious disease consulted. Not available. -Repeat blood culture negative. PICC line ordered -Sensitivity to vanc. Plan -PICC line placed in L arm. -COnt Vanc, zosyn stopped. 11/18/2016 continue same as above no new change Qualifiers: Sepsis type: sepsis due to unspecified organism Qualified Code(s): A41.9 - Sepsis, unspecified organism (4) Cerebrovascular accident Current Visit: Yes Status: Acute Assessment and plan: Mr. Vizcarra presented with right-sided weakness and fell outside the window for thrombolysis. He recently failed swallow evaluation in emergency department but was seen by speech and was cleared for mechanical soft diet with thin liquids. MRI of the brain demonstrates numerous foci of acute/early subacute infarcts in the supratentorial and infratentorial brain parenchymal bilaterally. Distribution of infarction raises the possibility of thromboembolic phenomenon from the central source. Diffuse parenchymal volume loss and sequelae of moderate to severe chronic microvascular ischemic changes. Echocardiogram performed 11/11/2016 demonstrates technically suboptimal study. Left ventricle ejection fraction was 50% with low normal LV systolic function. Mild concentric left ventricular hypertrophy and indeterminate diastolic function. There was a normal right ventricular size and function and no significant valvular dysfunction. Repeat noncontrast CT exam on 11/14/2016 showed no acute abnormality. Test performed because of acute mental status change 11/15 -Patients mental status greatly improved. Plan: - BRYAN shows atrial thrombus - PT OT evaluation - Neurology following. Full anticoagulation recommended. Patient on Xerelto. -According to imaging, no acute changes. 11/16 -Patients mental status improve Plan -Continue current therapy. 11/17/16 -Patient feels better. Plan -Continue current therapy Qualifiers: CVA mechanism: unspecified Qualified Code(s): I63.9 - Cerebral infarction, unspecified (5) Urinary retention Current Visit: Yes Status: Acute Assessment and plan: -See above under RONNIE. -Patient does take home medications for BPH. -Urology input appreciated. - Subjective Interval history: seen and examined no new complaints - Constitutional Vitals: Temp Pulse Resp BP Pulse Ox 97.7 F 74 18 152/75 95 11/18/16 16:59 11/18/16 16:59 11/18/16 16:59 11/18/16 17:13 11/18/16 16:59 General appearance: Present: A&O X 3. Absent: cooperative, no acute distress, answers questions appropriately - Head Head exam: Present: atraumatic, normocephalic - Eye Eye exam: Present: PERRL, conjuntiva pink, sclera anicteric Pupils: Present: PERRL - Neck Neck exam general surgery: Present: supple, trachea midline. Absent: lymphadenopathy - Respiratory Respiratory exam: Present: CTAB. Absent: accessory muscle use, rales, rhonchi, wheezes - Cardiovascular Cardiovascular exam: Present: RRR, +S1, +S2. Absent: diastolic murmur, gallop, rubs, systolic murmur - GI/Abdominal GI/Abdominal exam: Present: normal bowel sounds, soft, no peritoneal signs. Absent: distended, tenderness - Extremities Exam Extremities exam: Present: warm, radial pulses palpable and symetrical. Absent : calf tenderness, cyanotic, pedal edema - Neurological Exam Neurological exam: Present: CN II-XII intact, oriented X3, no focal deficits. Absent: pronater drift, facial droop, speech deficit - Skin Skin exam: Present: dry, intact Internal Medicine: Result - Labs CBC & Chem 7: 11/18/16 05:01 11/18/16 05:01 Labs: Short CBC 11/18/16 Range/Units 05:01 WBC 4.3 (4.3-11.1) K/mcL Hgb 9.8 L (12.9-16.9) g/dL Hct 28.9 L (37.5-50.1) % Plt Count 132 L (140-400) K/mcL Neutrophils # 2.6 (1.6-8.9) K/mcL BMP 11/18/16 05:01 Sodium 139 Potassium 3.3 L Chloride 106 Carbon Dioxide 25 BUN 6 L Creatinine 0.70 L Glucose 88 Calcium 8.1 L - ABG Interpretation ABG results: PT/INR, D-dimer PT 16.8 Seconds (9.4-12.1) H 11/14/16 08:44 - VTE Documentation of Mechanical Device: Intermittent pneumatic compression device Consult Discharge Plan - Plan Referrals: Saloni Isaac CNP [Primary Care Provider] -
[2016-11-18] MEDS: traZODone 50 MG TABLET PO SCH (22:32)
[2016-11-19] MEDS: Ipratropium/Albuterol Neb 3 ML IH SCH ×7 (00:38→23:19)
[2016-11-19 05:59] LABS: Basophils % 0.4 %; Eosinophils # 0.2 K/mcL (0.0-0.6); Eosinophils % 4.7 %; Hematocrit 27.4 % (37.5-50.1); Hemoglobin 9.2 g/dL (12.9-16.9); Immature Granulocytes % 0.2 % (0-4); Immature Platelets 2.9 % (1.1-6.1); Lymphocytes # 1.3 K/mcL (0.6-4.6); Mean Corpuscular HGB Conc 33.6 g/dL (31.6-35.5); Mean Corpuscular Hemoglobin 30.9 pg (28.0-33.3); Mean Corpuscular Volume 91.9 fL (83.0-100.0); Mean Platelet Volume 9.8 fL (9.4-12.4); Monocytes # 0.5 K/mcL (0.0-1.3); Monocytes % 9.7 %; Neutrophils # 2.9 K/mcL (1.6-8.9); Platelet Count 164 K/mcL (140-400); Red Blood Count 2.98 M/mcL (4.19-5.50); Red Cell Distribution Width 13.2 % (11.5-14.5)
[2016-11-19 06:47] LABS: Alanine Aminotransferase 6 Units/L (0-55); Albumin 2.2 g/dL (3.5-5.0); Albumin/Globulin Ratio 0.7 (1.1-2.2); Alkaline Phosphatase 54 Units/L (38-126); Aspartate Amino Transferase 16 Units/L (5-34); BUN/Creatinine Ratio 11 (6-26); Bilirubin,Total 0.5 mg/dL (0.2-1.2); Blood Urea Nitrogen 8 mg/dL (8-26); Calcium 8.2 mg/dL (8.6-10.8); Carbon Dioxide 27 mEq/L (19-29); Chloride 104 mEq/L (98-109); Globulin 3.1 g/dL (2.4-3.5); Glucose 118 mg/dL (70-99); Osmolality,Calculated 283 (280-300); Potassium 3.1 mEq/L (3.5-4.5); Sodium 137 mEq/L (136-145); Total Protein 5.3 g/dL (6.0-8.3); eGFR For African Americans > 60 (> 60); eGFR For Non-African Americans > 60 (> 60)
[2016-11-19] MEDS: Insulin LISPRO 300 UNITS/3 ML VIAL SQ SCH ×4 (08:00→20:45)
[2016-11-19] MEDS: Multivit/Ca/Min/Fe/FA 1 TAB TABLET PO SCH (10:35)
[2016-11-19] MEDS: Aspirin 81 MG TAB.CHEW PO SCH (10:35)
[2016-11-19] MEDS: Carbidopa/Levodopa 25/100 TABLET PO SCH ×3 (10:35→20:44)
[2016-11-19] MEDS: Isosorbide MONOnitrate (24 HR) 60 MG TAB.ER.24H PO SCH (10:36)
[2016-11-19] MEDS: Fluticasone Propionate Nasal 50 MCG/SPRAY BOTTLE NS SCH (10:37)
[2016-11-19] MEDS: Vancomycin 1,750 MG in D5% in Water 500 ML IVPB SCH (14:56)
[2016-11-19] MEDS: *HR* Rivaroxaban 10 MG TABLET PO SCH (17:58)
--- NOTE | 2016-11-19 18:11 | Internal Med Progress Note ---
Date of Encounter: 11/19/16 Time of Encounter: 18:08 - Assessment and plan (1) Electrolyte and fluid disorder Current Visit: Yes Status: Acute Assessment and plan: -Patient fluid overloaded. Fluids stopped. However, still recieving abx and replacement of electrolytes as needed. -Hypocalcemia, hypoalbuminimia. I feel like these lab values will improve once patient is not fluid overloaded. Patient is not hypotensive. -Considered starting Lasix to remove fluid. However, low Ca. Will redraw and evaluate Plan -Start Lasix if Ca improves. -Stop fluids. -Do not replace albumin at this time unless patient BP <90/60 11/18/2016 responded well to lasix now blood pressure is 152/75 will continue lasix for 1 more day close observation. 11/19/2016 no more issues with fluid overload. eating well tolerating fluid well. (2) Thrombus of left atrial appendage Current Visit: Yes Status: Acute Assessment and plan: -BRYAN Reveals Atrial Appendage thrombus on 11/13/16 -Patient started Xerelto 11/13/16. Plan -Continue Xerelto (3) Sepsis Current Visit: Yes Status: Acute Assessment and plan: 11/15 -Patient has marked improvement today compared to yesterday. Likely source is urinary. -Blood and urine culture gram positive cocci. -On zosyn and vanc. -Lopez in correct place Plan - Continue Zosyn and Vanc. Because of renal function, Vanc pulse dose per pharmacist. -Urology has been consulted to evaluate prostate. -Continue with rectal Tylenol prn for fever, fluids. 11/16 -Positive blood and urine culture. -Patient on vancomycin and Zosyn -Improving clinically Plan -Consult infectious disease: nursing home abx therapy choice, picc line placement. -Social work needed for guidance on discharge facility. -Continue abx 11/17/16 -Infectious disease consulted. Not available. -Repeat blood culture negative. PICC line ordered -Sensitivity to vanc. Plan -PICC line placed in L arm. -COnt Vanc, zosyn stopped. 11/18/2016 continue same as above no new change 11/19/2016 continue IV vancomycin in view of bacteremia, he needs at least 2-3 weeks of Vanco Qualifiers: Sepsis type: sepsis due to unspecified organism Qualified Code(s): A41.9 - Sepsis, unspecified organism (4) Cerebrovascular accident Current Visit: Yes Status: Acute Assessment and plan: Mr. Vizcarra presented with right-sided weakness and fell outside the window for thrombolysis. He recently failed swallow evaluation in emergency department but was seen by speech and was cleared for mechanical soft diet with thin liquids. MRI of the brain demonstrates numerous foci of acute/early subacute infarcts in the supratentorial and infratentorial brain parenchymal bilaterally. Distribution of infarction raises the possibility of thromboembolic phenomenon from the central source. Diffuse parenchymal volume loss and sequelae of moderate to severe chronic microvascular ischemic changes. Echocardiogram performed 11/11/2016 demonstrates technically suboptimal study. Left ventricle ejection fraction was 50% with low normal LV systolic function. Mild concentric left ventricular hypertrophy and indeterminate diastolic function. There was a normal right ventricular size and function and no significant valvular dysfunction. Repeat noncontrast CT exam on 11/14/2016 showed no acute abnormality. Test performed because of acute mental status change 11/15 -Patients mental status greatly improved. Plan: - BRYAN shows atrial thrombus - PT OT evaluation - Neurology following. Full anticoagulation recommended. Patient on Xerelto. -According to imaging, no acute changes. 11/16 -Patients mental status improve Plan -Continue current therapy. 11/17/16 -Patient feels better. Plan -Continue current therapy Qualifiers: CVA mechanism: unspecified Qualified Code(s): I63.9 - Cerebral infarction, unspecified (5) Urinary retention Current Visit: Yes Status: Acute Assessment and plan: -See above under RONNIE. -Patient does take home medications for BPH. -Urology input appreciated. - Subjective Interval history: seen and examined no new complaints 11/19/2016 no new complaints eating well alert and oriented. - Constitutional Vitals: Temp Pulse Resp BP Pulse Ox 97.5 F L 83 16 121/68 96 11/19/16 17:04 11/19/16 17:04 11/19/16 17:04 11/19/16 17:04 11/19/16 17:04 General appearance: Present: A&O X 3. Absent: cooperative, no acute distress, answers questions appropriately - Head Head exam: Present: atraumatic, normocephalic - Eye Eye exam: Present: PERRL, conjuntiva pink, sclera anicteric Pupils: Present: PERRL - Neck Neck exam general surgery: Present: supple, trachea midline. Absent: lymphadenopathy - Respiratory Respiratory exam: Present: CTAB. Absent: accessory muscle use, rales, rhonchi, wheezes - Cardiovascular Cardiovascular exam: Present: RRR, +S1, +S2. Absent: diastolic murmur, gallop, rubs, systolic murmur - GI/Abdominal GI/Abdominal exam: Present: normal bowel sounds, soft, no peritoneal signs. Absent: distended, tenderness - Extremities Exam Extremities exam: Present: warm, radial pulses palpable and symetrical. Absent : calf tenderness, cyanotic, pedal edema - Neurological Exam Neurological exam: Present: CN II-XII intact, oriented X3, no focal deficits. Absent: pronater drift, facial droop, speech deficit - Skin Skin exam: Present: dry, intact Internal Medicine: Result - Labs CBC & Chem 7: 11/19/16 05:30 11/19/16 05:30 Labs: Short CBC 11/19/16 Range/Units 05:30 WBC 4.9 (4.3-11.1) K/mcL Hgb 9.2 L (12.9-16.9) g/dL Hct 27.4 L (37.5-50.1) % Plt Count 164 (140-400) K/mcL Neutrophils # 2.9 (1.6-8.9) K/mcL BMP 11/19/16 05:30 Sodium 137 Potassium 3.1 L Chloride 104 Carbon Dioxide 27 BUN 8 Creatinine 0.71 L Glucose 118 H Calcium 8.2 L Liver Function 11/19/16 Range/Units 05:30 Total Bilirubin 0.5 (0.2-1.2) mg/dL AST 16 (5-34) Units/L ALT 6 (0-55) Units/L Alkaline Phosphatase 54 (38-126) Units/L Albumin 2.2 L (3.5-5.0) g/dL - ABG Interpretation ABG results: PT/INR, D-dimer PT 16.8 Seconds (9.4-12.1) H 11/14/16 08:44 - VTE Documentation of Mechanical Device: Intermittent pneumatic compression device Consult Discharge Plan - Plan Referrals: Saloni Isaac, SANDIE [Primary Care Provider] -
[2016-11-19] MEDS: traZODone 50 MG TABLET PO SCH (20:44)
[2016-11-20] MEDS: Ipratropium/Albuterol Neb 3 ML IH SCH ×6 (04:41→23:57)
[2016-11-20 05:37] LABS: Basophils % 0.4 %; Eosinophils # 0.2 K/mcL (0.0-0.6); Eosinophils % 4.2 %; Hematocrit 27.9 % (37.5-50.1); Hemoglobin 9.2 g/dL (12.9-16.9); Immature Granulocytes % 0.7 % (0-4); Lymphocytes # 1.2 K/mcL (0.6-4.6); Lymphocytes % 21.8 %; Mean Corpuscular Hemoglobin 30.5 pg (28.0-33.3); Mean Corpuscular Volume 92.4 fL (83.0-100.0); Monocytes # 0.5 K/mcL (0.0-1.3); Monocytes % 9.5 %; Neutrophils # 3.6 K/mcL (1.6-8.9); Platelet Count 160 K/mcL (140-400); Red Blood Count 3.02 M/mcL (4.19-5.50); Red Cell Distribution Width 13.2 % (11.5-14.5); Segmented Neutrophils % 63.4 %
[2016-11-20 05:45] LABS: Alanine Aminotransferase 6 Units/L (0-55); Albumin 2.3 g/dL (3.5-5.0); Albumin/Globulin Ratio 0.7 (1.1-2.2); Alkaline Phosphatase 63 Units/L (38-126); Aspartate Amino Transferase 17 Units/L (5-34); BUN/Creatinine Ratio 17 (6-26); Bilirubin,Total 0.6 mg/dL (0.2-1.2); Blood Urea Nitrogen 12 mg/dL (8-26); Calcium 8.4 mg/dL (8.6-10.8); Carbon Dioxide 28 mEq/L (19-29); Chloride 105 mEq/L (98-109); Globulin 3.1 g/dL (2.4-3.5); Glucose 94 mg/dL (70-99); Osmolality,Calculated 290 (280-300); Potassium 3.4 mEq/L (3.5-4.5); Sodium 140 mEq/L (136-145); Total Protein 5.4 g/dL (6.0-8.3); eGFR For African Americans > 60 (> 60); eGFR For Non-African Americans > 60 (> 60)
--- NOTE | 2016-11-20 07:02 | Internal Med Progress Note ---
<Jose Alberto Martins Zack - Last Filed: 11/20/16 15:12> Date of Encounter: 11/20/16 Time of Encounter: 08:00 - Assessment and plan (1) Electrolyte and fluid disorder Current Visit: Yes Status: Acute Assessment and plan: -Patient fluid overloaded. Fluids stopped. However, still recieving abx and replacement of electrolytes as needed. -Hypocalcemia, hypoalbuminimia. I feel like these lab values will improve once patient is not fluid overloaded. Patient is not hypotensive. -Considered starting Lasix to remove fluid. However, low Ca. Will redraw and evaluate Plan -Start Lasix if Ca improves. -Stop fluids. -Do not replace albumin at this time unless patient BP <90/60 11/18/2016 responded well to lasix now blood pressure is 152/75 will continue lasix for 1 more day close observation. 11/19/2016 no more issues with fluid overload. eating well tolerating fluid well. 11/20/16 -No issue with fluid overload. -Ordered patient to be a feeder -Tolerating diet well (2) Thrombus of right atrial appendage Current Visit: Yes Status: Acute Assessment and plan: -BRYAN Reveals Atrial Appendage thrombus on 11/13/16 -Patient started Xerelto 11/13/16. Plan -Continue Xerelto -Consider reevaluation with ECHO. 11/17/16 -Continue with plan above 11/20/16 -On xerelto (3) Sepsis Current Visit: Yes Status: Acute Assessment and plan: 11/15 -Patient has marked improvement today compared to yesterday. Likely source is urinary. -Blood and urine culture gram positive cocci. -On zosyn and vanc. -Sylvester in correct place Plan - Continue Zosyn and Vanc. Because of renal function, Vanc pulse dose per pharmacist. -Urology has been consulted to evaluate prostate. -Continue with rectal Tylenol prn for fever, fluids. 11/16 -Positive blood and urine culture. 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 -Social work needed for guidance on discharge facility. -Continue abx 11/17/16 -Infectious disease consulted. Not available. -Repeat blood culture negative. PICC line ordered -Sensitivity to vanc. Plan -PICC line placed in L arm. -COnt Vanc, zosyn stopped. 11/18/2016 continue same as above no new change 11/19/2016 continue IV vancomycin in view of bacteremia, he needs at least 2-3 weeks of Vanco 11/20/16 -Cntinue IV vanc -Needs 2-3 weeks of vancomycin. -Repeat CXR today Qualifiers: Sepsis type: sepsis due to unspecified organism Qualified Code(s): A41.9 - Sepsis, unspecified organism (4) Cerebrovascular accident Current Visit: Yes Status: Acute Assessment and plan: Mr. Vizcarra presented with right-sided weakness and fell outside the window for thrombolysis. He recently failed swallow evaluation in emergency department but was seen by speech and was cleared for mechanical soft diet with thin liquids. MRI of the brain demonstrates numerous foci of acute/early subacute infarcts in the supratentorial and infratentorial brain parenchymal bilaterally. Distribution of infarction raises the possibility of thromboembolic phenomenon from the central source. Diffuse parenchymal volume loss and sequelae of moderate to severe chronic microvascular ischemic changes. Echocardiogram performed 11/11/2016 demonstrates technically suboptimal study. Left ventricle ejection fraction was 50% with low normal LV systolic function. Mild concentric left ventricular hypertrophy and indeterminate diastolic function. There was a normal right ventricular size and function and no significant valvular dysfunction. Repeat noncontrast CT exam on 11/14/2016 showed no acute abnormality. Test performed because of acute mental status change 11/15 -Patients mental status greatly improved. Plan: - BRYAN shows atrial thrombus - PT OT evaluation - Neurology following. Full anticoagulation recommended. Patient on Xerelto. -According to imaging, no acute changes. 11/16 -Patients mental status improve Plan -Continue current therapy. 11/17/16 -Patient feels better. Plan -Continue current therapy 11/20/16 -Patient improving mentally -Continue current therapy Qualifiers: CVA mechanism: unspecified Qualified Code(s): I63.9 - Cerebral infarction, unspecified (5) RONNIE (acute kidney injury) Current Visit: Yes Status: Resolved Assessment and plan: Likely secondary to urinary retention, patient had normal renal function yesterday. Today, discovered catheter placement in the prostate on CT examination of the abdomen. 900 ml out upon repositioning. Retroperitoneal ultrasound performed on 11/11/2016 demonstrates right kidney measuring 11.1 cm in length and left kidney measuring 11.3 cm in length. Kidney demonstrates normal cortical echogenicity. No evidence of hydronephrosis or intrarenal stones. Right kidney contains a 3.9 cm cyst and a cortical calcification. Left kidney contains several cysts measure up to 3.4 cm. No hydronephrosis. Bilateral renal cysts measuring up to 3.9 cm. 11/15 -Renal function improved significantly. Plan: - Continue IV rehydration. Keep sylvester. - Continue monitoring renal function with daily labs. 11/16 -Resolved -Seen by urology. Appointment schedule in next 2-3 weeks for possible voiding trial. 11/17/16 -Resolved. (6) Urinary retention Current Visit: Yes Status: Acute Assessment and plan: -See above under RONNIE. -Patient does take home medications for BPH. -Urology input appreciated. (7) Parkinson disease Current Visit: No Status: Chronic (8) DVT prophylaxis Current Visit: Yes Status: Acute Assessment and plan: -On Xerelto. -IPCDs ordered - Subjective Interval history: Patient has marked improvement. Is speaking, answering questions appropriately, following commands. Tolerated his diet. Not back to baseline. Friend is present in the room. Admits to mild abdominal pain as diffuse. Nothing seems to make it better or worse. Patient appears comfortable. 11/17/16 -Patient feeling better today. Denies abdominal pain, headache, N/V. Admits to a productive cough. Answers questions appropriately. Does not want to eat even though he can. Progressing back to baseline. In the afternoon, patient had one episode of vomiting. Reassessed patient. He does not know why he vomited. Not complaining of abdominal pain, nausea, headache, confusion. Is resting comfortably. Noticed patient hypotensive on monitor. Rechecked and found to be WNL. 11/20/16 Patient complains of constipation. Denies abdominal pain. States that he has not pooped in 5 days. Looking at his chart, he did poop yesterday. Denies any SOB, CP. Resting comfortably in bed. States that PT comes by daily to work with him. - Constitutional Vitals: Temp Pulse Resp BP Pulse Ox 97.7 F 77 16 155/83 95 02/06/17 04:00 11/20/16 04:00 11/20/16 04:00 11/20/16 04:00 11/20/16 04:00 General appearance: Present: A&O X 3. Absent: cooperative, no acute distress, answers questions appropriately - Head Head exam: Present: atraumatic, normocephalic - Eye Eye exam: Present: PERRL, conjuntiva pink, sclera anicteric Pupils: Present: PERRL - Neck Neck exam general surgery: Present: supple, trachea midline. Absent: lymphadenopathy - Respiratory Respiratory exam: Present: rhonchi, wheezes. Absent: accessory muscle use - Cardiovascular Cardiovascular exam: Present: RRR, +S1, +S2. Absent: diastolic murmur, gallop, rubs, systolic murmur - GI/Abdominal GI/Abdominal exam: Present: normal bowel sounds, soft, no peritoneal signs. Absent: distended, tenderness - Extremities Exam Extremities exam: Present: warm, radial pulses palpable and symetrical. Absent : calf tenderness, cyanotic, pedal edema - Neurological Exam Neurological exam: Present: CN II-XII intact, oriented X3, no focal deficits. Absent: pronater drift, facial droop, speech deficit - Skin Skin exam: Present: dry, intact Internal Medicine: Result - Labs CBC & Chem 7: 11/20/16 05:15 11/20/16 05:15 Labs: Short CBC 11/20/16 Range/Units 05:15 WBC 5.7 (4.3-11.1) K/mcL Hgb 9.2 L (12.9-16.9) g/dL Hct 27.9 L (37.5-50.1) % Plt Count 160 (140-400) K/mcL Neutrophils # 3.6 (1.6-8.9) K/mcL BMP 11/20/16 05:15 Sodium 140 Potassium 3.4 L Chloride 105 Carbon Dioxide 28 BUN 12 Creatinine 0.71 L Glucose 94 Calcium 8.4 L Liver Function 11/20/16 Range/Units 05:15 Total Bilirubin 0.6 (0.2-1.2) mg/dL AST 17 (5-34) Units/L ALT 6 (0-55) Units/L Alkaline Phosphatase 63 (38-126) Units/L Albumin 2.3 L (3.5-5.0) g/dL - ABG Interpretation ABG results: PT/INR, D-dimer PT 16.8 Seconds (9.4-12.1) H 11/14/16 08:44 - VTE Documentation of Mechanical Device: Intermittent pneumatic compression device Consult Discharge Plan - Plan Referrals: Saloni Isaac, SALES ENGAGEMENT EXECUTIVE [Primary Care Provider] - <Wilfredo Stewart - Last Filed: 11/20/16 18:36> Date of Encounter: 11/20/16 - Assessment and plan (1) Electrolyte and fluid disorder Current Visit: Yes Status: Acute (2) Thrombus of left atrial appendage Current Visit: Yes Status: Acute (3) Sepsis Current Visit: Yes Status: Acute Qualifiers: Sepsis type: sepsis due to unspecified organism Qualified Code(s): A41.9 - Sepsis, unspecified organism (4) Cerebrovascular accident Current Visit: Yes Status: Acute Qualifiers: CVA mechanism: unspecified Qualified Code(s): I63.9 - Cerebral infarction, unspecified (5) Urinary retention Current Visit: Yes Status: Acute - Constitutional Vitals: Temp Pulse Resp BP Pulse Ox 97.7 F 74 12 144/87 97 11/20/16 15:31 11/20/16 15:31 11/20/16 15:31 11/20/16 15:31 11/20/16 15:31 Internal Medicine: Result - Labs CBC & Chem 7: 11/20/16 05:15 11/20/16 05:15 Labs: Short CBC 11/20/16 Range/Units 05:15 WBC 5.7 (4.3-11.1) K/mcL Hgb 9.2 L (12.9-16.9) g/dL Hct 27.9 L (37.5-50.1) % Plt Count 160 (140-400) K/mcL Neutrophils # 3.6 (1.6-8.9) K/mcL BMP 11/20/16 05:15 Sodium 140 Potassium 3.4 L Chloride 105 Carbon Dioxide 28 BUN 12 Creatinine 0.71 L Glucose 94 Calcium 8.4 L Liver Function 11/20/16 Range/Units 05:15 Total Bilirubin 0.6 (0.2-1.2) mg/dL AST 17 (5-34) Units/L ALT 6 (0-55) Units/L Alkaline Phosphatase 63 (38-126) Units/L Albumin 2.3 L (3.5-5.0) g/dL - ABG Interpretation ABG results: PT/INR, D-dimer PT 16.8 Seconds (9.4-12.1) H 11/14/16 08:44 - Attending Attestation I examined this patient and my medical decision-making was reviewed with the BARREL LEVELER/PA/Advanced Practice Nurse/Resident Physician. I agree with the documented findings, disposition and treatment plan as described except to the extent set forth below.
[2016-11-20] MEDS: Insulin LISPRO 300 UNITS/3 ML VIAL SQ SCH ×4 (10:56→22:20)
[2016-11-20] MEDS: Carbidopa/Levodopa 25/100 TABLET PO SCH ×3 (10:58→22:17)
[2016-11-20] MEDS: Isosorbide MONOnitrate (24 HR) 60 MG TAB.ER.24H PO SCH (10:58)
[2016-11-20] MEDS: Multivit/Ca/Min/Fe/FA 1 TAB TABLET PO SCH (10:58)
[2016-11-20] MEDS: Aspirin 81 MG TAB.CHEW PO SCH (10:58)
[2016-11-20] MEDS: Fluticasone Propionate Nasal 50 MCG/SPRAY BOTTLE NS SCH (10:58)
[2016-11-20] MEDS: Vancomycin 1,750 MG in D5% in Water 500 ML IVPB SCH (14:14)
[2016-11-20] MEDS: *HR* Rivaroxaban 10 MG TABLET PO SCH (17:09)
[2016-11-20] MEDS: traZODone 50 MG TABLET PO SCH (22:19)
[2016-11-21] MEDS: Acetaminophen 325 MG TABLET PO PRN (00:27)
[2016-11-21] MEDS: Ipratropium/Albuterol Neb 3 ML IH SCH ×6 (03:56→23:21)
[2016-11-21 06:58] LABS: INR 1.8; Prothrombin Time 19.3 Seconds (9.4-12.1)
[2016-11-21 07:01] LABS: Activated Partial Thrombo Time 36.6 Seconds (26.0-36.0)
[2016-11-21 07:03] LABS: BUN/Creatinine Ratio 16 (6-26); Blood Urea Nitrogen 12 mg/dL (8-26); Calcium 8.6 mg/dL (8.6-10.8); Carbon Dioxide 27 mEq/L (19-29); Chloride 106 mEq/L (98-109); Glucose 94 mg/dL (70-99); Osmolality,Calculated 290 (280-300); Potassium 3.9 mEq/L (3.5-4.5); Sodium 140 mEq/L (136-145); eGFR For African Americans > 60 (> 60); eGFR For Non-African Americans > 60 (> 60)
--- NOTE | 2016-11-21 09:33 | Internal Med Progress Note ---
<Jose Alberto Martins - Last Filed: 11/21/16 17:38> Date of Encounter: 11/21/16 Time of Encounter: 09:15 - Assessment and plan (1) Electrolyte and fluid disorder Current Visit: Yes Status: Acute Assessment and plan: -Patient fluid overloaded. Fluids stopped. However, still recieving abx and replacement of electrolytes as needed. -Hypocalcemia, hypoalbuminimia. I feel like these lab values will improve once patient is not fluid overloaded. Patient is not hypotensive. -Considered starting Lasix to remove fluid. However, low Ca. Will redraw and evaluate Plan -Start Lasix if Ca improves. -Stop fluids. -Do not replace albumin at this time unless patient BP <90/60 11/18/2016 responded well to lasix now blood pressure is 152/75 will continue lasix for 1 more day close observation. 11/19/2016 no more issues with fluid overload. eating well tolerating fluid well. 11/20/16 -No issue with fluid overload. -Ordered patient to be a feeder -Tolerating diet well 11/21/16 -K improved with addition of K BID. Ca improved. -Patient does have crackles on auscultation. Output -1300. Patient on RA, O2 stats >95%, doesnt complain of being SOB. -Tolerating diet well. Patient is a feeder. Plan -Continue current therapy. No lasixs needed at this time. -patient will be discharged tomorrow. (2) Thrombus of right atrial appendage Current Visit: Yes Status: Acute Assessment and plan: -BRYAN Reveals Atrial Appendage thrombus on 11/13/16 -Patient started Xerelto 11/13/16. Plan -Continue Xerelto -Consider reevaluation with ECHO. 11/17/16 -Continue with plan above 11/20/16 -On xerelto (3) Sepsis Current Visit: Yes Status: Acute Assessment and plan: 11/15 -Patient has marked improvement today compared to yesterday. Likely source is urinary. -Blood and urine culture gram positive cocci. -On zosyn and vanc. -Sylvester in correct place Plan - Continue Zosyn and Vanc. Because of renal function, Vanc pulse dose per pharmacist. -Urology has been consulted to evaluate prostate. -Continue with rectal Tylenol prn for fever, fluids. 11/16 -Positive blood and urine culture. 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 -Social work needed for guidance on discharge facility. -Continue abx 11/17/16 -Infectious disease consulted. Not available. -Repeat blood culture negative. PICC line ordered -Sensitivity to vanc. Plan -PICC line placed in L arm. -COnt Vanc, zosyn stopped. 11/18/2016 continue same as above no new change 11/19/2016 continue IV vancomycin in view of bacteremia, he needs at least 2-3 weeks of Vanco 11/20/16 -Cntinue IV vanc -Needs 2-3 weeks of vancomycin. -Repeat CXR today 11/21/16 -Repeat CXR shows atelectasis vs pneumonia. Not worsening -C spine and Lumbar spine show no acute abnormality. Chronic degenerative changes only. Plan -Cont vanc Qualifiers: Sepsis type: sepsis due to unspecified organism Qualified Code(s): A41.9 - Sepsis, unspecified organism (4) Cerebrovascular accident Current Visit: Yes Status: Acute Assessment and plan: Mr. Vizcarra presented with right-sided weakness and fell outside the window for thrombolysis. He recently failed swallow evaluation in emergency department but was seen by speech and was cleared for mechanical soft diet with thin liquids. MRI of the brain demonstrates numerous foci of acute/early subacute infarcts in the supratentorial and infratentorial brain parenchymal bilaterally. Distribution of infarction raises the possibility of thromboembolic phenomenon from the central source. Diffuse parenchymal volume loss and sequelae of moderate to severe chronic microvascular ischemic changes. Echocardiogram performed 11/11/2016 demonstrates technically suboptimal study. Left ventricle ejection fraction was 50% with low normal LV systolic function. Mild concentric left ventricular hypertrophy and indeterminate diastolic function. There was a normal right ventricular size and function and no significant valvular dysfunction. Repeat noncontrast CT exam on 11/14/2016 showed no acute abnormality. Test performed because of acute mental status change 2 -Patients mental status greatly improved. Plan: - BRYAN shows atrial thrombus - PT OT evaluation - Neurology following. Full anticoagulation recommended. Patient on Xerelto. -According to imaging, no acute changes. 2 -Patients mental status improve Plan -Continue current therapy. 11/17/16 -Patient feels better. Plan -Continue current therapy 11/20/16 -Patient improving mentally -Continue current therapy Qualifiers: CVA mechanism: unspecified Qualified Code(s): I63.9 - Cerebral infarction, unspecified (5) RONNIE (acute kidney injury) Current Visit: Yes Status: Resolved Assessment and plan: Likely secondary to urinary retention, patient had normal renal function yesterday. Today, discovered catheter placement in the prostate on CT examination of the abdomen. 900 ml out upon repositioning. Retroperitoneal ultrasound performed on 11/11/2016 demonstrates right kidney measuring 11.1 cm in length and left kidney measuring 11.3 cm in length. Kidney demonstrates normal cortical echogenicity. No evidence of hydronephrosis or intrarenal stones. Right kidney contains a 3.9 cm cyst and a cortical calcification. Left kidney contains several cysts measure up to 3.4 cm. No hydronephrosis. Bilateral renal cysts measuring up to 3.9 cm. 11/15 -Renal function improved significantly. Plan: - Continue IV rehydration. Keep sylvester. - Continue monitoring renal function with daily labs. 11/16 -Resolved -Seen by urology. Appointment schedule in next 2-3 weeks for possible voiding trial. 11/17/16 -Resolved. (6) Urinary retention Current Visit: Yes Status: Acute (7) Parkinson disease Current Visit: No Status: Chronic (8) DVT prophylaxis Current Visit: Yes Status: Acute Assessment and plan: -On Xerelto. -IPCDs ordered - Subjective Interval history: Patient has marked improvement. Is speaking, answering questions appropriately, following commands. Tolerated his diet. Not back to baseline. Friend is present in the room. Admits to mild abdominal pain as diffuse. Nothing seems to make it better or worse. Patient appears comfortable. 11/17/16 -Patient feeling better today. Denies abdominal pain, headache, N/V. Admits to a productive cough. Answers questions appropriately. Does not want to eat even though he can. Progressing back to baseline. In the afternoon, patient had one episode of vomiting. Reassessed patient. He does not know why he vomited. Not complaining of abdominal pain, nausea, headache, confusion. Is resting comfortably. Noticed patient hypotensive on monitor. Rechecked and found to be WNL. 11/20/16 Patient complains of constipation. Denies abdominal pain. States that he has not pooped in 5 days. Looking at his chart, he did poop yesterday. Denies any SOB, CP. Resting comfortably in bed. States that PT comes by daily to work with him. ---- 11/21/16 Patient feels like his strength in his R hand has improved slightly. Admits to a cough that is non productive. Denies fever, SOB, CP, MEADE/N/V/D/Constipation. Has no questions or concerns. - Constitutional Vitals: Temp Pulse Resp BP Pulse Ox 97.5 F L 70 18 149/85 95 11/21/16 07:44 11/21/16 07:44 11/21/16 07:44 11/21/16 07:44 11/21/16 07:44 General appearance: Present: A&O X 3. Absent: cooperative, no acute distress, answers questions appropriately - Head Head exam: Present: atraumatic, normocephalic - Eye Eye exam: Present: PERRL, conjuntiva pink, sclera anicteric Pupils: Present: PERRL - Neck Neck exam general surgery: Present: supple, trachea midline. Absent: lymphadenopathy - Respiratory Respiratory exam: Present: rhonchi, wheezes. Absent: accessory muscle use, rales, respiratory distress - Cardiovascular Cardiovascular exam: Present: RRR, +S1, +S2. Absent: diastolic murmur, gallop, rubs, systolic murmur - GI/Abdominal GI/Abdominal exam: Present: normal bowel sounds, soft, no peritoneal signs. Absent: distended, tenderness - Extremities Exam Extremities exam: Present: warm, radial pulses palpable and symetrical. Absent : calf tenderness, cyanotic, pedal edema - Neurological Exam Neurological exam: Present: CN II-XII intact, oriented X3. Absent: strengths equal and symetr throughout, facial droop, speech deficit Additional comments: R hand strength increased. R hand has edema, improved compared to yesterday. Patient still unable to raise R arm. - Skin Skin exam: Present: dry, intact Internal Medicine: Result - Labs CBC & Chem 7: 11/20/16 05:15 11/21/16 06:20 Labs: BMP 11/21/16 06:20 Sodium 140 Potassium 3.9 Chloride 106 Carbon Dioxide 27 BUN 12 Creatinine 0.73 Glucose 94 Calcium 8.6 - ABG Interpretation ABG results: PT/INR, D-dimer PT 19.3 Seconds (9.4-12.1) H 11/21/16 06:20 - Impressions Impressions Chest X-Ray 11/20/16 15:30 IMPRESSION: Left lower lobe atelectasis versus pneumonia. D/ / Rafa Flores MD / Rafa Flores MD Interpreting Provider: Rafa Flores MD - VTE Documentation of Mechanical Device: Intermittent pneumatic compression device Consult Discharge Plan - Plan Instructions: Atrial Fibrillation (DC), Chest Pain (DC), Urinary Tract Infection in Men (DC), Diabetes Mellitus Type 2 in Adults (DC), Sepsis (DC), Hemorrhagic Stroke (DC), Hemorrhagic Stroke (GEN), Pneumonia (DC) Referrals: Saloni Isaac CNP [Primary Care Provider] - Prescriptions: Rivaroxaban [Xarelto] 20 mg PO 1700 #30 tablet <Wilfredo Stewart - Last Filed: 11/21/16 18:16> Date of Encounter: 11/21/16 - Assessment and plan (1) Electrolyte and fluid disorder Current Visit: Yes Status: Acute (2) Thrombus of left atrial appendage Current Visit: Yes Status: Acute (3) Sepsis Current Visit: Yes Status: Acute Qualifiers: Sepsis type: sepsis due to unspecified organism Qualified Code(s): A41.9 - Sepsis, unspecified organism (4) Cerebrovascular accident Current Visit: Yes Status: Acute Qualifiers: CVA mechanism: unspecified Qualified Code(s): I63.9 - Cerebral infarction, unspecified (5) Urinary retention Current Visit: Yes Status: Acute - Constitutional Vitals: Temp Pulse Resp BP Pulse Ox 98.2 F 76 18 115/58 94 L 11/21/16 16:00 11/21/16 16:00 11/21/16 18:01 11/21/16 16:00 11/21/16 18:01 Internal Medicine: Result - Labs CBC & Chem 7: 11/20/16 05:15 11/21/16 06:20 Labs: BMP 11/21/16 06:20 Sodium 140 Potassium 3.9 Chloride 106 Carbon Dioxide 27 BUN 12 Creatinine 0.73 Glucose 94 Calcium 8.6 - ABG Interpretation ABG results: PT/INR, D-dimer PT 19.3 Seconds (9.4-12.1) H 11/21/16 06:20 - Impressions Impressions Chest X-Ray 11/20/16 15:30 IMPRESSION: Left lower lobe atelectasis versus pneumonia. D/ / Rafa Flores MD / Rafa Flores MD Interpreting Provider: Rafa Flores MD Cervical Spine X-Ray 11/21/16 08:47 IMPRESSION: Cervical postoperative and degenerative changes D/ / Nav Kaufman MD / Nav Kaufman MD Interpreting Provider: Nav Kaufman MD Lumbar Spine X-Ray 11/21/16 08:47 IMPRESSION: No acute or focal bony abnormality identified. D/ / Nasrin Mahajan Cha, MD / Nasrin Mahajan Cha, MD Interpreting Provider: Nasrin Mahajan Cha, MD - Attending Attestation I examined this patient and my medical decision-making was reviewed with the MOWING MACHINE OPERATOR/PA/Advanced Practice Nurse/Resident Physician. I agree with the documented findings, disposition and treatment plan as described except to the extent set forth below.
[2016-11-21] MEDS: Insulin LISPRO 300 UNITS/3 ML VIAL SQ SCH ×4 (10:29→21:56)
[2016-11-21] MEDS: Carbidopa/Levodopa 25/100 TABLET PO SCH ×3 (10:36→21:54)
[2016-11-21] MEDS: Multivit/Ca/Min/Fe/FA 1 TAB TABLET PO SCH (10:37)
[2016-11-21] MEDS: Isosorbide MONOnitrate (24 HR) 60 MG TAB.ER.24H PO SCH (10:37)
[2016-11-21] MEDS: Fluticasone Propionate Nasal 50 MCG/SPRAY BOTTLE NS SCH (10:38)
--- NOTE | 2016-11-21 11:16 | Discharge Summary ---
Date of Encounter: 11/21/16 Time of Encounter: 09:45 - Discharge Diagnosis (1) Electrolyte and fluid disorder Status: Acute (2) Thrombus of right atrial appendage Status: Acute (3) Sepsis Status: Acute Qualifiers: Sepsis type: sepsis due to unspecified organism Qualified Code(s): A41.9 - Sepsis, unspecified organism (4) Cerebrovascular accident Status: Acute Qualifiers: CVA mechanism: unspecified Qualified Code(s): I63.9 - Cerebral infarction, unspecified (5) RONNIE (acute kidney injury) Status: Resolved (6) Urinary retention Status: Acute (7) Parkinson disease Status: Chronic (8) DVT prophylaxis Status: Acute - Discharge Medications Prescriptions: Rivaroxaban [Xarelto] 20 mg PO 1700 #30 tablet Home Medications: Carbidopa/Levodopa 25/100 [Sinemet 25/100] 0.5 tab PO TID 07/12/15 [History] Citalopram [CeleXA] 20 mg PO QAM 07/12/15 [History] Trazodone HCl [TraZODone] 100 mg PO HS 07/12/15 [History] Omeprazole [PriLOSEC] 20 mg PO QAM 10/19/15 [History] Isosorbide MONOnitrate (24 HR) [Imdur] 60 mg PO DAILY #30 tab.er.24h 01/28/16 [ Rx] Fluticasone Propionate Nasal [Flonase] 50 mcg NS DAILY 06/23/16 [History] Metoprolol [Lopressor] 25 mg PO DAILY 06/23/16 [History] Multivitamin [Multi-Day Vitamins] 1 tab PO DAILY 06/23/16 [History] Docusate [Colace] 100 mg PO BID #30 capsule 10/24/16 [Rx] Aspirin Enteric Coated [Aspirin EC] 81 mg PO DAILY tablet. 10/30/16 [Rx] Acetaminophen w/Cod 300-30 mg [Tylenol w/Codeine #3] 1 tab PO QID PRN 11/10/16 [ History] Alprazolam [Xanax 0.25 MG Tablet] 0.25 mg PO BID PRN 11/10/16 [History] Alprazolam [Xanax 0.5 MG Tablet] 0.5 mg PO BID PRN 11/10/16 [History] Phenyleph/Pramoxin/Glycr/W.pet [Preparation H Cream] 1 appl RC Q4H PRN 11/10/16 [History] Potassium Chloride 20 meq PO BID 11/10/16 [History] Tamsulosin [Flomax] 0.8 mg PO HS 11/10/16 [History] Rivaroxaban [Xarelto] 20 mg PO 1700 #30 tablet 11/21/16 [Rx] Allergies/Adverse Reactions: Allergies acetaminophen [From Percocet] Adverse Reaction (Verified 10/19/16 16:45) Confusion codeine Adverse Reaction (Verified 10/19/16 16:45) Confusion morphine Adverse Reaction (Verified 10/19/16 16:45) Confusion Oxycodone [From Percocet] Adverse Reaction (Verified 10/19/16 16:45) Confusion Date of admission: 11/10/16 23:44 Primary care physician: Saloni Isaac CNP Consults: 11/10/16 23:50 Consult to Neurology [CONS] Routine Consulting Provider: [facility] Reason for Consult: Suspected CVA with right sided weakness Call Completed: No Consult to Occupational Therapy [CONS] Routine Comment: Evaluate, develop and implement POC Consult to Physical Therapy [CONS] Routine Comment: Evaluate, develop and implement POC Consult to Belly Roller [CONS] Routine Reason for SW Consult: Suspected CVA with right sided weakness - for discharge planning Consult to Speech Therapy [CONS] Routine Comment: Evaluate, develop and implement POC Reason for Consult: Suspected CVA with right sided weakness. Failed swallow eval in the ER Call Completed: No 11/11/16 03:00 Consult to Nephrology [CONS] Routine Consulting Provider: [facility] Reason for Consult: ARF Call Completed: No 11/15/16 10:16 Consult to Urology [CONS] Routine Consulting Provider: U[facility] [place] Reason for Consult: Enlarged Prostate. Concern for Prostatitis Time Notified: 12:38 Call Completed: Yes 11/16/16 16:33 Consult to Infectious Diseases [CONS] Routine Consulting Provider: Infectious Disease [place] Reason for Consult: Bacteremic and urine culture positive for MRSA. Guidance on future therapy and management. Call Completed: No 11/17/16 13:11 Consult to Invasive Line Access Team [CONS] Routine Reason for Consult: Picc Line Insertion Line Type: PICC Discharging clinician: Jose Alberto Martins Anticipated date of discharge: 11/21/16 - Patient Status Disposition: Transfer SNF Condition: Fair Functional capacity at discharge: bed bound Overall status at discharge: patient is progressing back to baseline - Discharge Instructions Instructions: Atrial Fibrillation (DC), Chest Pain (DC), Urinary Tract Infection in Men (DC), Diabetes Mellitus Type 2 in Adults (DC), Sepsis (DC), Hemorrhagic Stroke (DC), Hemorrhagic Stroke (GEN), Pneumonia (DC) Follow Up With: Saloni Isaac DIRECTOR COMPENSATION [Primary Care Provider] - - Diet and Activity Activity: increase activity as tolerated Diet: advance to your usual diet Hospital course: Mr. Vizcarra is a 81 year old male Chest x-ray shows left lower lobe atelectasis versus pneumonia - Time Spent with Patient Total time spent providing and/or coordinating discharge services: Less than 30 minutes - Constitutional Vitals: Temp Pulse Resp BP Pulse Ox 97.5 F L 70 18 149/85 95 11/21/16 07:44 11/21/16 07:44 11/21/16 07:44 11/21/16 07:44 11/21/16 07:44 General appearance: Present: A&O X 3. Absent: cooperative, no acute distress, answers questions appropriately - VTE Documentation of Mechanical Device: Intermittent pneumatic compression device
--- NOTE | 2016-11-21 11:31 | Physician Discharge Referral ---
<EliezerJose Alberto Zack - Last Filed: 11/22/16 18:08> [facility] Provider in Charge: Dr. Stewart Provider in Charge after Transfer: PCP Institutional Level of Care: Skilled - Diagnosis (2) Sepsis Status: Acute (3) Cerebrovascular accident Status: Acute (4) RONNIE (acute kidney injury) Status: Resolved (5) Urinary retention Status: Acute (6) Parkinson disease Status: Chronic (7) DVT prophylaxis Status: Acute (8) Electrolyte and fluid disorder Status: Acute (9) Thrombus of right atrial appendage Status: Acute (10) Pneumonia Status: Acute (11) Enlarged prostate Status: Acute Prognosis: Fair Aware of Diagnosis: Patient, Family Aware of Prognosis: Patient - Transfer Medications Prescriptions: Rivaroxaban [Xarelto] 20 mg PO 1700 #30 tablet Vancomycin/0.9 % Sod Chloride [Vanco 1.75 G/250 ml-0.9% NaCl] 1.75 gm IV DAILY # 32 plast..bag Home Medications: Carbidopa/Levodopa 25/100 [Sinemet 25/100] 0.5 tab PO TID 07/12/15 [History] Citalopram [CeleXA] 20 mg PO QAM 07/12/15 [History] Trazodone HCl [TraZODone] 100 mg PO HS 07/12/15 [History] Omeprazole [PriLOSEC] 20 mg PO QAM 10/19/15 [History] Isosorbide MONOnitrate (24 HR) [Imdur] 60 mg PO DAILY #30 tab.er.24h 01/28/16 [ Rx] Fluticasone Propionate Nasal [Flonase] 50 mcg NS DAILY 06/23/16 [History] Metoprolol [Lopressor] 25 mg PO DAILY 06/23/16 [History] Multivitamin [Multi-Day Vitamins] 1 tab PO DAILY 06/23/16 [History] Docusate [Colace] 100 mg PO BID #30 capsule 10/24/16 [Rx] Aspirin Enteric Coated [Aspirin EC] 81 mg PO DAILY tablet. 10/30/16 [Rx] Acetaminophen w/Cod 300-30 mg [Tylenol w/Codeine #3] 1 tab PO QID PRN 11/10/16 [ History] Alprazolam [Xanax 0.5 MG Tablet] 0.5 mg PO BID PRN 11/10/16 [History] Phenyleph/Pramoxin/Glycr/W.pet [Preparation H Cream] 1 appl RC Q4H PRN 11/10/16 [History] Potassium Chloride 20 meq PO BID 11/10/16 [History] Tamsulosin [Flomax] 0.8 mg PO HS 11/10/16 [History] Rivaroxaban [Xarelto] 20 mg PO 1700 #30 tablet 11/21/16 [Rx] Vancomycin/0.9 % Sod Chloride [Vanco 1.75 G/250 ml-0.9% NaCl] 1.75 gm IV DAILY # 32 plast..bag 11/23/16 [Rx] Allergies/Adverse Reactions: Allergies acetaminophen [From Percocet] Adverse Reaction (Verified 10/19/16 16:45) Confusion codeine Adverse Reaction (Verified 10/19/16 16:45) Confusion morphine Adverse Reaction (Verified 10/19/16 16:45) Confusion Oxycodone [From Percocet] Adverse Reaction (Verified 10/19/16 16:45) Confusion - Respiratory Orders None Smoking Cessation: Smoking cessation has been advised. For more information, call the [place] Tobacco Quit Line at 1-101-OCRM-NOW. - Lab Orders Lab Orders: CXR yearly, Other (include drug levels w/frequency) - Ancillary Orders May use pressure relief devices daily prn, May consult with Dentist, Drop Hammer Setter Up, Social Services Technician PRN - Advance Directives Power of Therapeutic Recreation Assistant: No Code Status: DNR-Arrest/Don't Intubate - Mobility Orders Chair - Rehabiliation Orders Rehab Potential: Fair Rehab Orders: Evaluation for Physical Therapy, Evaluation for Occupational Therapy - Treatments Skin tear care topically daily PRN per policy, May check for fecal impaction rectally daily PRN (Be aware. Patient has enlarged prostate. If septic. Dont do digital rectal exam because of prostititis.), Fleet enema rectally every other day PRN cleansing purposes - Diet Orders Mechanical Soft House Supplement per Dietary: ensure and magic cup TID CERTIFICATION: I certify that the transfer of the above named patient to an Extended Care Facility is necessary for the continuing treatment of the diagnosis listed. The above information is true and accurate reflection of patient's current condition. Confidential - Redisclosure prohibited without a patient's written consent. <Wilfredo Stewart P - Last Filed: 11/23/16 13:55> - Diagnosis (1) Electrolyte and fluid disorder Status: Acute (2) Thrombus of left atrial appendage Status: Acute (3) Sepsis Status: Acute (4) Cerebrovascular accident Status: Acute (5) Urinary retention Status: Acute - Respiratory Orders Smoking Cessation: Smoking cessation has been advised. For more information, call the [place] Tobacco Quit Line at 5-107-EARG-NOW. CERTIFICATION: I certify that the transfer of the above named patient to an Extended Care Facility is necessary for the continuing treatment of the diagnosis listed. The above information is true and accurate reflection of patient's current condition. Confidential - Redisclosure prohibited without a patient's written consent.
[2016-11-21] MEDS: Aspirin 81 MG TAB.CHEW PO SCH (12:37)
[2016-11-21] MEDS: Vancomycin 1,750 MG in D5% in Water 500 ML IVPB SCH (14:57)
[2016-11-21] MEDS: *HR* Rivaroxaban 10 MG TABLET PO SCH (17:45)
[2016-11-21] MEDS: traZODone 50 MG TABLET PO SCH (21:54)
[2016-11-22] MEDS: Acetaminophen 325 MG TABLET PO PRN (00:47)
[2016-11-22] MEDS: Ipratropium/Albuterol Neb 3 ML IH SCH ×5 (03:59→20:31)
[2016-11-22] MEDS: Insulin LISPRO 300 UNITS/3 ML VIAL SQ SCH ×5 (09:59→23:08)
[2016-11-22] MEDS: Multivit/Ca/Min/Fe/FA 1 TAB TABLET PO SCH (10:09)
[2016-11-22] MEDS: Isosorbide MONOnitrate (24 HR) 60 MG TAB.ER.24H PO SCH (10:09)
[2016-11-22] MEDS: Carbidopa/Levodopa 25/100 TABLET PO SCH ×3 (10:09→22:26)
[2016-11-22] MEDS: Aspirin 81 MG TAB.CHEW PO SCH (10:10)
--- NOTE | 2016-11-22 13:11 | Internal Med Progress Note ---
<Juan FranciscoJose Alberto fuentes Zack - Last Filed: 11/22/16 18:23> Date of Encounter: 11/22/16 Time of Encounter: 08:00 - Assessment and plan (1) Electrolyte and fluid disorder Current Visit: Yes Status: Acute Assessment and plan: -Patient fluid overloaded. Fluids stopped. However, still recieving abx and replacement of electrolytes as needed. -Hypocalcemia, hypoalbuminimia. I feel like these lab values will improve once patient is not fluid overloaded. Patient is not hypotensive. -Considered starting Lasix to remove fluid. However, low Ca. Will redraw and evaluate Plan -Start Lasix if Ca improves. -Stop fluids. -Do not replace albumin at this time unless patient BP <90/60 11/18/2016 responded well to lasix now blood pressure is 152/75 will continue lasix for 1 more day close observation. 11/19/2016 no more issues with fluid overload. eating well tolerating fluid well. 11/20/16 -No issue with fluid overload. -Ordered patient to be a feeder -Tolerating diet well 11/21/16 -K improved with addition of K BID. Ca improved. -Patient does have crackles on auscultation. Output -1300. Patient on RA, O2 stats >95%, doesnt complain of being SOB. -Tolerating diet well. Patient is a feeder. Plan -Continue current therapy. No lasixs needed at this time. -patient will most likely be discharged tomorrow. 11/22/16 -No changes need to be made at this time (2) Thrombus of right atrial appendage Current Visit: Yes Status: Acute Assessment and plan: -BRYAN Reveals Atrial Appendage thrombus on 11/13/16 -Patient started Xerelto 11/13/16. Plan -Continue Xerelto -Consider reevaluation with ECHO. 11/17/16 -Continue with plan above 11/20/16 -On xerelto 11/22/16 -Repeat echo ordered to revaluate (3) Sepsis Current Visit: Yes Status: Acute Assessment and plan: 11/15 -Patient has marked improvement today compared to yesterday. Likely source is urinary. -Blood and urine culture gram positive cocci. -On zosyn and vanc. -Sylvester in correct place Plan - Continue Zosyn and Vanc. Because of renal function, Vanc pulse dose per pharmacist. -Urology has been consulted to evaluate prostate. -Continue with rectal Tylenol prn for fever, fluids. 11/16 -Positive blood and urine culture. -Patient on vancomycin and Zosyn -Improving clinically Plan -Consult infectious disease: terminal gauger supervisor abx therapy choice, picc line placement. -Social work needed for guidance on discharge facility. -Continue abx 11/17/16 -Infectious disease consulted. Not available. -Repeat blood culture negative. PICC line ordered -Sensitivity to vanc. Plan -PICC line placed in L arm. -COnt Vanc, zosyn stopped. 11/18/2016 continue same as above no new change 11/19/2016 continue IV vancomycin in view of bacteremia, he needs at least 2-3 weeks of Vanco 11/20/16 -Cntinue IV vanc -Needs 2-3 weeks of vancomycin. -Repeat CXR today 11/21/16 -Repeat CXR shows atelectasis vs pneumonia. Not worsening -C spine and Lumbar spine show no acute abnormality. Chronic degenerative changes only. Plan -Cont vanc 11/22/16 -Continue current therapy. Patient is improving throughout hospital course. Qualifiers: Sepsis type: sepsis due to unspecified organism Qualified Code(s): A41.9 - Sepsis, unspecified organism (4) Cerebrovascular accident Current Visit: Yes Status: Acute Assessment and plan: Mr. Vizcarra presented with right-sided weakness and fell outside the window for thrombolysis. He recently failed swallow evaluation in emergency department but was seen by speech and was cleared for mechanical soft diet with thin liquids. MRI of the brain demonstrates numerous foci of acute/early subacute infarcts in the supratentorial and infratentorial brain parenchymal bilaterally. Distribution of infarction raises the possibility of thromboembolic phenomenon from the central source. Diffuse parenchymal volume loss and sequelae of moderate to severe chronic microvascular ischemic changes. Echocardiogram performed 11/11/2016 demonstrates technically suboptimal study. Left ventricle ejection fraction was 50% with low normal LV systolic function. Mild concentric left ventricular hypertrophy and indeterminate diastolic function. There was a normal right ventricular size and function and no significant valvular dysfunction. Repeat noncontrast CT exam on 11/14/2016 showed no acute abnormality. Test performed because of acute mental status change 2 -Patients mental status greatly improved. Plan: - BRYAN shows atrial thrombus - PT OT evaluation - Neurology following. Full anticoagulation recommended. Patient on Xerelto. -According to imaging, no acute changes. 22 -Patients mental status improve Plan -Continue current therapy. 11/17/16 -Patient feels better. Plan -Continue current therapy 11/20/16 -Patient improving mentally -Continue current therapy Qualifiers: CVA mechanism: unspecified Qualified Code(s): I63.9 - Cerebral infarction, unspecified (5) RONNIE (acute kidney injury) Current Visit: Yes Status: Resolved Assessment and plan: Likely secondary to urinary retention, patient had normal renal function yesterday. Today, discovered catheter placement in the prostate on CT examination of the abdomen. 900 ml out upon repositioning. Retroperitoneal ultrasound performed on 11/11/2016 demonstrates right kidney measuring 11.1 cm in length and left kidney measuring 11.3 cm in length. Kidney demonstrates normal cortical echogenicity. No evidence of hydronephrosis or intrarenal stones. Right kidney contains a 3.9 cm cyst and a cortical calcification. Left kidney contains several cysts measure up to 3.4 cm. No hydronephrosis. Bilateral renal cysts measuring up to 3.9 cm. 11/15 -Renal function improved significantly. Plan: - Continue IV rehydration. Keep sylvester. - Continue monitoring renal function with daily labs. 11/16 -Resolved -Seen by urology. Appointment schedule in next 2-3 weeks for possible voiding trial. 11/17/16 -Resolved. (6) Urinary retention Current Visit: Yes Status: Acute Assessment and plan: -See above under RONNIE. -Patient does take home medications for BPH. -Urology input appreciated. (7) Parkinson disease Current Visit: No Status: Chronic Assessment and plan: Continue home medications. (8) DVT prophylaxis Current Visit: Yes Status: Acute Assessment and plan: -On Xerelto. -IPCDs ordered - Subjective Interval history: Patient has marked improvement. Is speaking, answering questions appropriately, following commands. Tolerated his diet. Not back to baseline. Friend is present in the room. Admits to mild abdominal pain as diffuse. Nothing seems to make it better or worse. Patient appears comfortable. 11/17/16 -Patient feeling better today. Denies abdominal pain, headache, N/V. Admits to a productive cough. Answers questions appropriately. Does not want to eat even though he can. Progressing back to baseline. In the afternoon, patient had one episode of vomiting. Reassessed patient. He does not know why he vomited. Not complaining of abdominal pain, nausea, headache, confusion. Is resting comfortably. Noticed patient hypotensive on monitor. Rechecked and found to be WNL. 11/20/16 Patient complains of constipation. Denies abdominal pain. States that he has not pooped in 5 days. Looking at his chart, he did poop yesterday. Denies any SOB, CP. Resting comfortably in bed. States that PT comes by daily to work with him. ---- 11/21/16 Patient feels like his strength in his R hand has improved slightly. Admits to a cough that is non productive. Denies fever, SOB, CP, MEADE/N/V/D/Constipation. Has no questions or concerns. 11/22/16 Patient feels about the same today as yesterday. Resting comfortably in bed. Has no complaints or concerns at this time. Discussed with patient about repeat ECHO and placement in a alf facility. Patient understands current treatment plan of continued abx. - Constitutional Vitals: Temp Pulse Resp BP Pulse Ox 99 F 78 16 115/67 94 L 11/22/16 12:05 11/22/16 12:05 11/22/16 12:05 11/22/16 12:05 11/22/16 12:05 General appearance: Present: A&O X 3. Absent: cooperative, no acute distress, answers questions appropriately - Head Head exam: Present: atraumatic, normocephalic - Eye Eye exam: Present: PERRL, conjuntiva pink, sclera anicteric Pupils: Present: PERRL - Neck Neck exam general surgery: Present: supple, trachea midline. Absent: lymphadenopathy - Respiratory Respiratory exam: Present: rhonchi (much improved compared to yesterday. ). Absent: accessory muscle use, rales, wheezes - Cardiovascular Cardiovascular exam: Present: RRR, +S1, +S2. Absent: diastolic murmur, gallop, rubs, systolic murmur - GI/Abdominal GI/Abdominal exam: Present: normal bowel sounds, soft, no peritoneal signs. Absent: distended, tenderness - Extremities Exam Extremities exam: Present: pedal edema (mild ), warm, radial pulses palpable and symetrical. Absent: calf tenderness, cyanotic - Neurological Exam Neurological exam: Present: alert, CN II-XII intact, oriented X3. Absent: no focal deficits (R arm weakness. unable to lift arm. Can feature writer moderately. ), facial droop, speech deficit - Skin Skin exam: Present: dry, intact Internal Medicine: Result - Labs CBC & Chem 7: 11/20/16 05:15 11/21/16 06:20 - ABG Interpretation ABG results: PT/INR, D-dimer PT 19.3 Seconds (9.4-12.1) H 11/21/16 06:20 - Impressions Impressions Cervical Spine X-Ray 11/21/16 08:47 IMPRESSION: Cervical postoperative and degenerative changes D/ / Nav Kaufman MD / Nav Kaufman MD Interpreting Provider: Nav Kaufman MD Lumbar Spine X-Ray 11/21/16 08:47 IMPRESSION: No acute or focal bony abnormality identified. D/ / Nasrin Mahajan Cha, MD / Nasrin Mahajan Cha, MD Interpreting Provider: Nasrin Mahajan Cha, MD - VTE Documentation of Mechanical Device: Intermittent pneumatic compression device Consult Discharge Plan - Plan Instructions: Atrial Fibrillation (DC), Chest Pain (DC), Urinary Tract Infection in Men (DC), Diabetes Mellitus Type 2 in Adults (DC), Sepsis (DC), Hemorrhagic Stroke (DC), Hemorrhagic Stroke (GEN), Pneumonia (DC) Referrals: Saloni Isaac CNP [Primary Care Provider] - Prescriptions: Rivaroxaban [Xarelto] 20 mg PO 1700 #30 tablet Vancomycin/0.9 % Sod Chloride [Vanco 1.75 G/250 ml-0.9% NaCl] 1.75 gm IV DAILY # 32 plast..bag <Wilfredo Stewart P - Last Filed: 11/23/16 13:56> Date of Encounter: 11/23/16 - Assessment and plan (1) Electrolyte and fluid disorder Current Visit: Yes Status: Acute (2) Thrombus of left atrial appendage Current Visit: Yes Status: Acute (3) Sepsis Current Visit: Yes Status: Acute Qualifiers: Sepsis type: sepsis due to unspecified organism Qualified Code(s): A41.9 - Sepsis, unspecified organism (4) Cerebrovascular accident Current Visit: Yes Status: Acute Qualifiers: CVA mechanism: unspecified Qualified Code(s): I63.9 - Cerebral infarction, unspecified (5) Urinary retention Current Visit: Yes Status: Acute - Constitutional Vitals: Temp Pulse Resp BP Pulse Ox 99.2 F 68 16 130/65 97 11/22/16 15:56 11/22/16 15:56 11/22/16 15:56 11/22/16 15:56 11/22/16 15:56 Internal Medicine: Result - Labs CBC & Chem 7: 11/20/16 05:15 11/21/16 06:20 - ABG Interpretation ABG results: PT/INR, D-dimer PT 19.3 Seconds (9.4-12.1) H 11/21/16 06:20 - Attending Attestation I examined this patient and my medical decision-making was reviewed with the HEAD STOCK TRANSFER CLERK/PA/Advanced Practice Nurse/Resident Physician. I agree with the documented findings, disposition and treatment plan as described except to the extent set forth below.
[2016-11-22] MEDS: Vancomycin 1,750 MG in D5% in Water 500 ML IVPB SCH (14:05)
[2016-11-22] MEDS: Fluticasone Propionate Nasal 50 MCG/SPRAY BOTTLE NS SCH (14:13)
[2016-11-22] MEDS: *HR* Rivaroxaban 10 MG TABLET PO SCH (17:07)
[2016-11-22] MEDS: traZODone 50 MG TABLET PO SCH (22:26)
[2016-11-23] MEDS: Ipratropium/Albuterol Neb 3 ML IH SCH ×5 (00:36→15:52)
[2016-11-23 07:33] VITALS: BP 125/83
--- NOTE | 2016-11-23 10:07 | Discharge Summary ---
<Wilfredo Stewart P - Last Filed: 11/23/16 13:53> Date of Encounter: 11/23/16 - Discharge Diagnosis (1) Electrolyte and fluid disorder Status: Acute (2) Thrombus of left atrial appendage Status: Acute (3) Sepsis Status: Acute Qualifiers: Sepsis type: sepsis due to unspecified organism Qualified Code(s): A41.9 - Sepsis, unspecified organism (4) Cerebrovascular accident Status: Acute Qualifiers: CVA mechanism: unspecified Qualified Code(s): I63.9 - Cerebral infarction, unspecified (5) Urinary retention Status: Acute - Discharge Medications Prescriptions: Rivaroxaban [Xarelto] 20 mg PO 1700 #30 tablet Vancomycin/0.9 % Sod Chloride [Vanco 1.75 G/250 ml-0.9% NaCl] 1.75 gm IV DAILY # 32 plast..bag Home Medications: Carbidopa/Levodopa 25/100 [Sinemet 25/100] 0.5 tab PO TID 07/12/15 [History] Citalopram [CeleXA] 20 mg PO QAM 07/12/15 [History] Trazodone HCl [TraZODone] 100 mg PO HS 07/12/15 [History] Omeprazole [PriLOSEC] 20 mg PO QAM 10/19/15 [History] Isosorbide MONOnitrate (24 HR) [Imdur] 60 mg PO DAILY #30 tab.er.24h 01/28/16 [ Rx] Fluticasone Propionate Nasal [Flonase] 50 mcg NS DAILY 06/23/16 [History] Metoprolol [Lopressor] 25 mg PO DAILY 06/23/16 [History] Multivitamin [Multi-Day Vitamins] 1 tab PO DAILY 06/23/16 [History] Docusate [Colace] 100 mg PO BID #30 capsule 10/24/16 [Rx] Aspirin Enteric Coated [Aspirin EC] 81 mg PO DAILY tablet. 10/30/16 [Rx] Acetaminophen w/Cod 300-30 mg [Tylenol w/Codeine #3] 1 tab PO QID PRN 11/10/16 [ History] Alprazolam [Xanax 0.5 MG Tablet] 0.5 mg PO BID PRN 11/10/16 [History] Phenyleph/Pramoxin/Glycr/W.pet [Preparation H Cream] 1 appl RC Q4H PRN 11/10/16 [History] Potassium Chloride 20 meq PO BID 11/10/16 [History] Tamsulosin [Flomax] 0.8 mg PO HS 11/10/16 [History] Rivaroxaban [Xarelto] 20 mg PO 1700 #30 tablet 11/21/16 [Rx] Vancomycin/0.9 % Sod Chloride [Vanco 1.75 G/250 ml-0.9% NaCl] 1.75 gm IV DAILY # 32 plast..bag 11/23/16 [Rx] Allergies/Adverse Reactions: Allergies acetaminophen [From Percocet] Adverse Reaction (Verified 10/19/16 16:45) Confusion codeine Adverse Reaction (Verified 10/19/16 16:45) Confusion morphine Adverse Reaction (Verified 10/19/16 16:45) Confusion Oxycodone [From Percocet] Adverse Reaction (Verified 10/19/16 16:45) Confusion Date of admission: 11/10/16 23:44 Primary care physician: Saloni Isaac CNP Consults: 11/10/16 23:50 Consult to Neurology [CONS] Routine Consulting Provider: [facility] Reason for Consult: Suspected CVA with right sided weakness Call Completed: No Consult to Occupational Therapy [CONS] Routine Comment: Evaluate, develop and implement POC Consult to Physical Therapy [CONS] Routine Comment: Evaluate, develop and implement POC Consult to Inking Machine Tender [CONS] Routine Reason for SW Consult: Suspected CVA with right sided weakness - for discharge planning Consult to Speech Therapy [CONS] Routine Comment: Evaluate, develop and implement POC Reason for Consult: Suspected CVA with right sided weakness. Failed swallow eval in the ER Call Completed: No 11/11/16 03:00 Consult to Nephrology [CONS] Routine Consulting Provider: [facility] Reason for Consult: ARF Call Completed: No 11/15/16 10:16 Consult to Urology [CONS] Routine Consulting Provider: [facility] Reason for Consult: Enlarged Prostate. Concern for Prostatitis Time Notified: 12:38 Call Completed: Yes 11/16/16 16:33 Consult to Infectious Diseases [CONS] Routine Consulting Provider: [facility] Reason for Consult: Bacteremic and urine culture positive for MRSA. Guidance on future therapy and management. Call Completed: No 11/17/16 13:11 Consult to Invasive Line Access Team [CONS] Routine Reason for Consult: Picc Line Insertion Line Type: PICC - Patient Status Disposition: Transfer SNF Condition: Fair - Discharge Instructions Instructions: Atrial Fibrillation (DC), Chest Pain (DC), Urinary Tract Infection in Men (DC), Diabetes Mellitus Type 2 in Adults (DC), Sepsis (DC), Hemorrhagic Stroke (DC), Hemorrhagic Stroke (GEN), Pneumonia (DC) Follow Up With: Saloni Isaac CNP [Primary Care Provider] - Hospital course: Mr. Vizcarra is a 81 year old male - Time Spent with Patient Total time spent providing and/or coordinating discharge services: - Constitutional Vitals: Temp Pulse Resp BP Pulse Ox 98.5 F 72 16 125/83 95 11/23/16 07:32 11/23/16 07:32 11/23/16 11:06 11/23/16 07:32 11/23/16 11:06 - Attending Attestation I examined this patient and my medical decision-making was reviewed with the SURGICAL RESIDENT/PA/Advanced Practice Nurse/Resident Physician. I agree with the documented findings, disposition and treatment plan as described except to the extent set forth below. 6weeks of Vanco for bacteremia. follow up with PC[facility] and cardiology <Jose Alberto Martins - Last Filed: 11/24/16 15:23> Date of Encounter: 11/24/16 Time of Encounter: 10:04 - Discharge Diagnosis (1) Thrombus of left atrial appendage Priority: Primary Status: Acute Comments: -Patient on xarelto. (2) Sepsis Priority: Primary Status: Acute Comments: -Will need a total of 6 weeks on vancomycin IV. Vancomycin started on 11/14/16 Qualifiers: Sepsis type: sepsis due to unspecified organism Qualified Code(s): A41.9 - Sepsis, unspecified organism (3) Cerebrovascular accident Priority: Primary Status: Acute Qualifiers: CVA mechanism: unspecified Qualified Code(s): I63.9 - Cerebral infarction, unspecified (4) Urinary retention Priority: Primary Status: Acute (5) Parkinson disease Priority: Secondary Status: Chronic (6) DVT prophylaxis Priority: Secondary Status: Acute Date of admission: 11/10/16 23:44 Primary care physician: Saloni Isaac CNP Consults: 11/10/16 23:50 Consult to Neurology [CONS] Routine Consulting Provider: [facility] Reason for Consult: Suspected CVA with right sided weakness Call Completed: No Consult to Occupational Therapy [CONS] Routine Comment: Evaluate, develop and implement POC Consult to Physical Therapy [CONS] Routine Comment: Evaluate, develop and implement POC Consult to Inking Machine Tender [CONS] Routine Reason for SW Consult: Suspected CVA with right sided weakness - for discharge planning Consult to Speech Therapy [CONS] Routine Comment: Evaluate, develop and implement POC Reason for Consult: Suspected CVA with right sided weakness. Failed swallow eval in the ER Call Completed: No 11/11/16 03:00 Consult to Nephrology [CONS] Routine Consulting Provider: [facility] Reason for Consult: ARF Call Completed: No 11/15/16 10:16 Consult to Urology [CONS] Routine Consulting Provider: [facility] Reason for Consult: Enlarged Prostate. Concern for Prostatitis Time Notified: 12:38 Call Completed: Yes 11/16/16 16:33 Consult to Infectious Diseases [CONS] Routine Consulting Provider: [facility] Reason for Consult: Bacteremic and urine culture positive for MRSA. Guidance on future therapy and management. Call Completed: No 11/17/16 13:11 Consult to Invasive Line Access Team [CONS] Routine Reason for Consult: Picc Line Insertion Line Type: PICC Discharging clinician: Jose Alberto Martins Anticipated date of discharge: 11/23/16 - Patient Status Overall status at discharge: patient is progressing back to baseline - Diet and Activity Activity: increase activity as tolerated Diet: other (mechanical soft till swallow eval. ) Hospital course: Mr. Vizcarra is a 81 year old male who is admitted for R sided weakness. Ischemic Stroke was discovered on MRI. Source of stroke, undetermined.However, Thrombus in L atrial appendage discovered on Echo and [facility]. Patient placed on xaerelto. A repeated echo was not done. In addition, Patient was found to have an elevated white blood cell count and positive blood cultures for MRSA. Patient placed on vancomycin and will continue this treatment for a total of 6 weeks in a care home. Today, the patient states that he is doing okay. Denies any changes to his status compared to yesterday. Denies any SOB, CP, Headache. Still has R sided weakness from the effects of the stroke. Patient unable to care for himself. Will be discharged to a skilled facility and continued to receive vancomycin infusions for the bacteremia. - Time Spent with Patient Total time spent providing and/or coordinating discharge services: Less than 30 minutes - Constitutional Vitals: Temp Pulse Resp BP Pulse Ox 98.5 F 72 16 125/83 96 11/23/16 07:32 11/23/16 07:32 11/23/16 08:05 11/23/16 07:32 11/23/16 08:05 General appearance: Present: A&O X 3. Absent: cooperative, no acute distress, answers questions appropriately - Head Head exam: Present: atraumatic, normocephalic - Eye Eye exam: Present: PERRL, conjuntiva pink, sclera anicteric Pupils: Present: PERRL - Neck Neck exam general surgery: Present: supple, trachea midline. Absent: lymphadenopathy - Respiratory Respiratory exam: Present: rhonchi. Absent: accessory muscle use, rales, wheezes - Cardiovascular Cardiovascular exam: Present: RRR, +S1, +S2. Absent: diastolic murmur, gallop, rubs, systolic murmur - GI/Abdominal GI/Abdominal exam: Present: normal bowel sounds, soft, no peritoneal signs. Absent: distended, tenderness - Extremities Exam Extremities exam: Present: warm, radial pulses palpable and symetrical. Absent : calf tenderness, cyanotic, pedal edema - Neurological Exam Neurological exam: Present: oriented X3, no focal deficits. Absent: strengths equal and symetr throughout, facial droop, speech deficit - Skin Skin exam: Present: dry, intact - VTE Documentation of Mechanical Device: Intermittent pneumatic compression device
[2016-11-23] MEDS: Insulin LISPRO 300 UNITS/3 ML VIAL SQ SCH (10:19)
[2016-11-23] MEDS: Aspirin 81 MG TAB.CHEW PO SCH (11:59)
[2016-11-23] MEDS: Multivit/Ca/Min/Fe/FA 1 TAB TABLET PO SCH (11:59)
[2016-11-23] MEDS: Isosorbide MONOnitrate (24 HR) 60 MG TAB.ER.24H PO SCH (11:59)
[2016-11-23] MEDS: Carbidopa/Levodopa 25/100 TABLET PO SCH (12:00)
[2016-11-23] MEDS ORDERED: Aminoglycoside Consult 1 EACH MC ONE (18:44)
== END 2016-11-23 18:45 | DRG 64 ==
LOC: 2NENU 17:57 → EMEROO 17:57 → 2NENU 21:02 → SUATTDRO 23:44
PROVIDERS: ADMIT Nurse Practitioner Acute Care; ATTEND Internal Medicine